=== PATIENT | male | born 1955 | race Caucasian/White ===

== ENCOUNTER → 2018-06-10 09:56 | Outpatient (CLI) | payer OTHER, SELFPAY ==
--- NOTE | 2018-06-10 | DI.US.S_ITS ---
PROCEDURE: US SCROTUM INDICATIONS: EPIDIMAL CYST/MASS TECHNIQUE: Real-time scanning was performed of the scrotum and testicles, with image documentation. Color and pulse Doppler interrogation was performed of both testicles. COMPARISON: [facility], CT, ABDOMEN/PELVIS WITH CONTRAST, 03/08/2014, 13:40. [facility], US, TESTICLE IMAGING, 12/12/2017, 14:24. [facility], US, TESTICLE IMAGING, 01/29/2018, 9:35. FINDINGS: Right: Testicle is normal in size at 2.3 x 3.1 x 5.0 cm, and homogenous in echotexture. Epididymis is normal in overall size and morphology except for a diminished size of a epididymal tail mass like structure that previously had measured 1.3 x 1.1 x 4.5 cm 01/29/18 and now measures only 0.9 x 0.9 x 0.8 cm. There is increased calcification associated with this interval change. No hydrocele or varicoceles. Overlying scrotal skin is normal in thickness. Left: Testicle is normal in size at 2.3 x 3.4 x 4.6 cm, and homogeneous in echotexture. Epididymis is normal in overall size and morphology. No hydrocele or varicoceles. Overlying scrotal skin is normal in thickness. Doppler: Color and pulse Doppler demonstrate normal and symmetric arterial flow in both testicles. IMPRESSION: No testicular lesion is seen. An epididymal tail mass on the right has diminished in size, and mildly increased in calcification. The maximal dimension of the tear currently is 9 mm. This interval change may reflects involuting hematoma but the exact etiology is not yet established. Dictated by: Brendan Madera M.D. on 06/10/2018 at 12:15 Approved by: Brendan Madera M.D. on 06/10/2018 at 12:22
== END ==
PROVIDERS: Family Provider Physician Assistant; PCP Physician Assistant; Visit Provider Physician Assistant
DX: N50.3 Cyst of epididymis (principal)
CPT/HCPCS: 76870

== ENCOUNTER → 2018-11-05 07:03 | Outpatient (CLI) | payer OTHER, SELFPAY ==
[2018-11-05 07:59] LABS: Hematocrit 42.5 % (41-53); Hemoglobin 14.5 g/dL (13.5-17.5); Mean Corpuscular Hemoglobin 29.8 PG (26-34); Mean Corpuscular Volume 87.6 fL (80-100); Platelet Count 231 X10^3/uL (150-400); Red Blood Cell Count 4.85 X10^6/uL (4.5-5.9); Red Cell Distribution Width 13.2 % (11.6-14.8); White Blood Cell Count 5.5 X10^3/uL (4.5-11.0)
[2018-11-05 08:06] LABS: Alanine Aminotransferase 56 IU/L (21-72); Albumin 4.3 g/dL (3.5-5.0); Albumin Globulin Ratio 1.7 (1.0-2.8); Alkaline Phosphatase 31 U/L (38-126); Aspartate Aminotransferase 46 IU/L (17-59); BUN Creatinine Ratio 20.8 (6-22); Bilirubin Total 0.4 mg/dL (0.2-1.3); Blood Urea Nitrogen 27 mg/dL (9-20); Calcium 9.1 mg/dL (8.4-10.2); Carbon Dioxide 28 mmol/L (22-32); Chloride 103 mmol/L (98-107); Cholesterol 168 mg/dL (140-199); Estimated Glomerular Filt Rate 56.1 mL/min (>60); Globulin 2.6 g/dL (1.7-4.1); Glucose 124 mg/dL (80-110); HDL Cholesterol 39 mg/dL (40-60); HEMOLYSIS < 15 (0-50); LDL Cholesterol Calculated 101 mg/dL (<100); Potassium 4.6 mmol/L (3.4-5.1); Sodium 141 mmol/L (137-145); Total Protein 6.9 g/dL (6.3-8.2); Triglycerides 140 mg/dL (35-150)
== END ==
PROVIDERS: PCP Physician Assistant; Visit Provider Physician Assistant
DX: E78.2 Mixed hyperlipidemia (principal); K21.9 Gastro-esophageal reflux disease without esophagitis; R73.01 Impaired fasting glucose
CPT/HCPCS: 36415; 80053; 80061; 85027

== ENCOUNTER → 2019-05-28 07:01 | Outpatient (CLI) | payer OTHER, SELFPAY ==
[2019-05-28 08:14] LABS: BUN Creatinine Ratio 15.4 (6-22); Blood Urea Nitrogen 20 mg/dL (9-20); Calcium 9.4 mg/dL (8.4-10.2); Carbon Dioxide 28 mmol/L (22-32); Chloride 104 mmol/L (98-107); Estimated Glomerular Filt Rate 56.1 mL/min (>60); Glucose 115 mg/dL (80-110); HEMOLYSIS < 15 (0-50); Potassium 4.4 mmol/L (3.4-5.1); Sodium 142 mmol/L (137-145)
[2019-05-28 08:29] LABS: Hemoglobin A1C% w Est Avg Glu 5.8 % (4.0-6.0)
== END ==
PROVIDERS: PCP Physician Assistant; Visit Provider Physician Assistant
DX: M25.50 Pain in unspecified joint (principal); R73.01 Impaired fasting glucose; R79.9 Abnormal finding of blood chemistry, unspecified
CPT/HCPCS: 36415; 80048; 83036; 84550

== ENCOUNTER → 2019-06-02 08:35 | Outpatient (CLI) | payer OTHER, SELFPAY ==
[2019-06-02 12:41] LABS: Creatinine Urine Random 114.1 mg/dL
[2019-06-02 12:50] LABS: Microalbumi Creatinin Ratio Ur 5.2 ug/mg CR (<30); Microalbumin Urine Random < 0.6 mg/dL (0-1.6)
== END ==
PROVIDERS: PCP Physician Assistant; Visit Provider Physician Assistant
DX: N28.9 Disorder of kidney and ureter, unspecified (principal)
CPT/HCPCS: 82043; 82570

== ENCOUNTER 2019-06-17 12:42 | Day surgery (SDC) | payer OTHER, SELFPAY ==
--- NOTE | 2019-06-17 | PATH_ITS ---
[facility] Accession Number: [id number] . 01 Material submitted: . body - POLYP 90 CM . 02 Diagnosis: Colon, Polyp at 90 cm, Biopsy: Colonic mucosa with no diagnostic abnormality, consistent with polypoid redundancy. Additional levels were examined. Negative for dysplasia and malignancy. [facility]/06/21/2019 . 02 Electronically signed: . Natalie Webber MD, Pathologist NPI- [id number] . 01 Gross description: . POLYP 90 CM: Received in formalin is 1 fragment(s) of cmgraw, soft tissue measuring 0.3 x 0.2 x 0.1 cm which is entirely submitted and submitted entirely in 1 cassette(s) /DMC /DMC . 02 Pathologist provided ICD-10: K63.5 . 02 CPT . 799214 Performed at: 01 [facility] [address] [id number] MD Lauro Goodman MD Phone: [phone] Performed at: 02 [facility] [address] [place], [place] [id number] MD Natalie Webber MD Phone: [phone]
[2019-06-17 13:14] VITALS: BP 143/88; PULSE 80; RESP 12; TEMP 36.8; O2SAT 97; BMI 28.5
[2019-06-17] MEDS: SODIUM CHLORIDE 0.9% 1,000 ML 200 ML IV (13:29)
--- NOTE | 2019-06-17 13:45 | PM.HP.1 ---
History of Present Illness Date Patient Seen: 06/17/19 Time Patient Seen: 13:46 Chief complaint: [id number] Narrative: Patient presents for colorectal screening. They had a previous colonoscopy 5 years ago that demonstated a benign polyp. On further history denies any recent gastrointestinal symptoms. No nausea, vomiting, abdominal pain, loss of appetite, unexplained weight loss, change in bowel habits, diarrhea, constipation, melena, hematochezia, or bright red blood per rectum. Patient History Surgical History History of hip replacement (11/29/13) Status post appendectomy Status post hernia repair Social History household members: spouse Smoking Status: Former smoker (I quit 20 years ago) Tobacco: How many years used: 20 second hand exposure: Yes (my ) alcohol intake: current (2 to 3 beers a week) substance use type: does not use Family & Social History Social History: household members spouse Tobacco & Substance use: Smoking Status Former smoker alcohol intake current Meds Home Medications Medication Instructions Recorded Confirmed Type multivitamin [Multiple Vitamins] 1 tab PO QDAY #0 08/06/17 06/17/19 History chlorzoxazone 500 mg tablet 500 mg PO BIDP PRN #60 tab 07/23/18 06/17/19 Rx meloxicam 15 mg tablet 15 mg PO DAILY PRN 11/11/18 06/17/19 History omega-3 fatty acids 1,000 mg 1,000 mg PO DAILY 11/11/18 06/17/19 History capsule fenofibrate 160 mg tablet 160 mg PO QDAY #90 tab 01/06/19 06/17/19 Rx lovastatin 20 mg tablet 20 mg PO HS #90 tab 01/06/19 06/17/19 Rx naproxen sodium 220 mg tablet 440 mg PO ONCE PRN tab 06/02/19 06/17/19 History Allergies Allergy/AdvReac Type Severity Reaction Status Date / Time atorvastatin [ATORVASTATIN] Allergy Severe Hemorrhage Verified 06/17/19 13:27 several inches in diameter/may have been crestor Review of Systems Review of Systems All systems reviewed & are unremarkable except as noted in HPI and below Exam Vital Signs (past 8 hours): - 06/17/19 13:14 Temperature 98.2 F Pulse Rate 80 Respiratory Rate 12 Blood Pressure 143/88 H Pulse Oximetry 97 Oxygen Delivery Method Room Air Narrative Exam Narrative: General-adult male no acute distress, well nourished HEENT-moist mucous membranes, no scleral icterus Neck-supple with full range of motion, no lymphadenopathy Chest- no labored respirations, clear to auscultation bilaterally Cardiac-regular rate and rhythm Abdomen-soft, nontender, non distended Extremities-no edema, warm well perfused Neurological-alert and oriented x 3. No focal deficits Skin-normal temperature and turgor, no rashes or ulcers Assessment & Plan (1) Screening for colorectal cancer: Current visit: Yes Status: Acute Assessment & Plan narrative: Patient is requiring colorectal screening. Colonoscopy is recommended. Technical details were discussed. Risks, benefits, alternatives explained. Risks including but not limited to sedation, aspiration, bleeding, pain, missed lesion, incomplete examination, need for further radiographic studies, colonic perforation, need for major abdominal surgery, and all attendant risks major surgery were discussed at length. All questions were answered to their satisfaction, and they voiced understanding.
[2019-06-17] MEDS: fentaNYL 250 MCG/5 ML INJ IV (14:14)
[2019-06-17] MEDS: MIDAZOLAM 5 MG/5 ML VIAL IV (14:14)
[2019-06-17 14:25] VITALS: BP 111/73; PULSE 75; RESP 13; TEMP 36.6; O2SAT 95
--- NOTE | 2019-06-17 14:31 | PM.OP.ENDO ---
Operative Date/Time/Diagnoses Date of procedure: 06/17/19 Time of procedure: 14:31 Pre-op diagnosis: Screening colonoscopy Post-op diagnosis: same Procedure & Clinicians Study performed: colonoscopy Same procedure as scheduled: Yes Indications: 63-year-old male with a previous colonoscopy 5 years ago identified an adenoma presents for routine screening Surgeon: Josh Yancey Procedure Notes SCOAP/Timeout: performed Procedure in detail: Digital rectal exam was performed and demonstrated normal prostate no masses. Scope was carefully inserted into the rectum and advanced to the colon. The ileocecal valve was reached. There was a polyp identified at 90 cm consistent with the cecum/right colon that was less than 1 cm in size and benign appearance. Was biopsied. The site was found to be hemostatic. The scope was carefully withdrawn from colon. The remainder of the colon was notable for diverticulosis only. Scope withdrawal time: 7 Sedation minutes: 27 Findings: polyp Specimen(s): other (cecal polyp) Complications: none Impression: polyp Recommendations: Colonscopy in 10 years Disposition: same day surgery
[2019-06-17 14:50] VITALS: BP 109/73; PULSE 79; RESP 14; TEMP 36.7; O2SAT 97
== END 2019-06-17 14:57 | disposition home or self-care (01) ==
PROVIDERS: PCP Physician Assistant; Visit Provider Surgery
PROC: 0DJD8ZZ Inspection of Lower Intestinal Tract, Via Natural or Artificial Opening Endoscopic (ICD-10-PCS; CPT 45378; principal; 2019-06-17 14:00)
DX: Z86.010 Personal history of colon polyps (principal); K63.5 Polyp of colon; K57.30 Diverticulosis of large intestine without perforation or abscess without bleeding; Z87.891 Personal history of nicotine dependence
CPT/HCPCS: 45380; 99152; J2250; J3010

== ENCOUNTER → 2019-11-19 07:50 | Outpatient (CLI) | payer OTHER, SELFPAY ==
[2019-11-19 08:14] LABS: Add Manual Diff / Slide Review NO; Basophils Absolute Auto 100 /uL (0-100); Eosinophils Absolute Auto 200 /uL (0-450); Eosinophils Percent Auto 3.9 % (2-4); Hematocrit 43.8 % (41-53); Hemoglobin 14.9 g/dL (13.5-17.5); Lymphocytes Absolute Auto 2000 /uL (1100-4500); Lymphocytes Percent Auto 32.8 % (25-40); Mean Corpuscular HGB Conc 34.1 % (30-36); Mean Corpuscular Hemoglobin 29.7 PG (26-34); Mean Corpuscular Volume 87.3 fL (80-100); Monocytes Absolute Auto 500 /uL (0-900); Monocytes Percent Auto 7.5 % (3-14); Neutrophils Absolute Auto 3300 /uL (1500-7000); Neutrophils Percent Auto 54.8 % (50-75); Platelet Count 246 X10^3/uL (150-400); Red Blood Cell Count 5.02 X10^6/uL (4.5-5.9); Red Cell Distribution Width 13.4 % (11.6-14.8); White Blood Cell Count 6.1 X10^3/uL (4.5-11.0)
[2019-11-19 08:38] LABS: Alanine Aminotransferase 85 IU/L (<50); Albumin 4.5 g/dL (3.5-5.0); Albumin Globulin Ratio 1.6 (1.0-2.8); Alkaline Phosphatase 39 U/L (38-126); Aspartate Aminotransferase 55 IU/L (17-59); BUN Creatinine Ratio 17.3 (6-22); Bilirubin Total 0.5 mg/dL (0.2-1.3); Blood Urea Nitrogen 26 mg/dL (9-20); Calcium 9.6 mg/dL (8.4-10.2); Carbon Dioxide 30 mmol/L (22-32); Chloride 102 mmol/L (98-107); Cholesterol 208 mg/dL (140-199); Creatinine Urine Random 146.1 mg/dL; Estimated Glomerular Filt Rate 47.4 mL/min (>60); Globulin 2.9 g/dL (1.7-4.1); Glucose 138 mg/dL (80-110); HDL Cholesterol 28 mg/dL (40-60); HEMOLYSIS < 15 (0-50); LDL Cholesterol Calculated 127 mg/dL (<100); Potassium 4.5 mmol/L (3.4-5.1); Sodium 141 mmol/L (137-145); Total Protein 7.4 g/dL (6.3-8.2); Triglycerides 264 mg/dL (35-150)
[2019-11-19 08:39] LABS: Microalbumi Creatinin Ratio Ur 4.1 ug/mg CR (<30); Microalbumin Urine Random < 0.6 mg/dL (0-1.6)
[2019-11-19 09:03] LABS: Prostate Specific Antigen Scrn 2.18 ng/mL (0.1-4.0)
== END ==
PROVIDERS: PCP Physician Assistant; Visit Provider Physician Assistant
DX: E78.2 Mixed hyperlipidemia (principal); N28.9 Disorder of kidney and ureter, unspecified; Z12.5 Encounter for screening for malignant neoplasm of prostate
CPT/HCPCS: 36415; 80053; 80061; 82043; 82570; 85025; G0103

== ENCOUNTER → 2019-12-03 07:55 | Outpatient (CLI) | payer OTHER, SELFPAY ==
[2019-12-03 09:47] LABS: Hemoglobin A1C% w Est Avg Glu 6.3 % (4.0-6.0)
== END ==
PROVIDERS: PCP Physician Assistant; Referring Provider Physician Assistant; Visit Provider Physician Assistant
DX: E78.2 Mixed hyperlipidemia (principal); R73.01 Impaired fasting glucose
CPT/HCPCS: 36415; 83036

== ENCOUNTER → 2019-12-23 08:11 | Outpatient (CLI) | payer OTHER, SELFPAY ==
[2019-12-23 08:51] LABS: Hematocrit 43.8 % (41-53); Hemoglobin 14.9 g/dL (13.5-17.5); Mean Corpuscular Hemoglobin 30.1 PG (26-34); Mean Corpuscular Volume 88.5 fL (80-100); Platelet Count 247 X10^3/uL (150-400); Red Blood Cell Count 4.95 X10^6/uL (4.5-5.9); Red Cell Distribution Width 13.2 % (11.6-14.8)
[2019-12-23 09:29] LABS: BUN Creatinine Ratio 16.2 (6-22); Blood Urea Nitrogen 21 mg/dL (9-20); Calcium 9.2 mg/dL (8.4-10.2); Carbon Dioxide 27 mmol/L (22-32); Chloride 103 mmol/L (98-107); Estimated Glomerular Filt Rate 55.9 mL/min (>60); Glucose 138 mg/dL (80-110); HEMOLYSIS < 15 (0-50); Potassium 4.4 mmol/L (3.4-5.1); Sodium 141 mmol/L (137-145)
[2019-12-23 11:22] LABS: Creatinine Urine Random 101.7 mg/dL; Protein (Total) Urine Random 8 mg/dL (0-12); Protein Creatinine Ratio Urine 0.07 GRAM/24H
== END ==
PROVIDERS: PCP Internal Medicine; Referring Provider Student in an Organized Health Care Education/Training Program; Visit Provider Student in an Organized Health Care Education/Training Program
DX: D70.9 Neutropenia, unspecified (principal); D63.1 Anemia in chronic kidney disease; R80.9 Proteinuria, unspecified
CPT/HCPCS: 36415; 80048; 82570; 84156; 85027

== ENCOUNTER → 2020-01-12 09:34 | Outpatient (CLI) | payer OTHER, SELFPAY ==
--- NOTE | 2020-01-12 | DI.US.S_ITS ---
PROCEDURE: US RENAL COMPLETE INDICATIONS: CHRONIC KIDNEY DISEASE TECHNIQUE: Real-time scanning was performed of the kidneys and bladder, with image documentation. COMPARISON: None. FINDINGS: Kidneys: Kidneys are normal in size. Right kidney measures 12.5 cm long; left kidney measures of 12.8 cm long. Right renal cortical thickness is 1.7 cm; left renal cortical thickness is 1.6 cm. Renal cortical echotexture is normal. No hydronephrosis or nephrolithiasis. No suspicious solid mass lesions. Prostate gland is prominent measuring 5.0 x 4.6 cm. Bladder: Pre-void bladder volume is 348 mL. Post-void residual is 52 mL. Pre-void images demonstrate no intraluminal masses or stones. On pre-void images, bilateral ureteral jets are noted with color Doppler interrogation. (Of note, ureteral jets may not be detectable in up to 25% of cases due to insufficient differences in specific gravity between ureteral and bladder urine). Miscellaneous: No free pelvic fluid. IMPRESSION: 1. No obstruction. Kidneys are within normal limits. Dictated by: Susan Wright M.D. on 01/12/2020 at 13:40 Approved by: Susan Wright M.D. on 01/12/2020 at 13:45
== END ==
PROVIDERS: PCP Internal Medicine; Referring Provider Internal Medicine; Visit Provider Student in an Organized Health Care Education/Training Program
DX: N18.9 Chronic kidney disease, unspecified (principal)
CPT/HCPCS: 76770

== ENCOUNTER → 2020-03-30 07:05 | Outpatient (CLI) | payer OTHER, SELFPAY ==
[2020-03-30 08:27] LABS: Hemoglobin A1C% w Est Avg Glu 6.7 % (4.0-6.0)
[2020-03-30 08:28] LABS: BUN Creatinine Ratio 17.4 (6-22); Blood Urea Nitrogen 26 mg/dL (9-20); Calcium 9.8 mg/dL (8.4-10.2); Carbon Dioxide 29 mmol/L (22-32); Chloride 103 mmol/L (98-107); Estimated Glomerular Filt Rate 47.8 mL/min (>60); Glucose 139 mg/dL (80-110); HEMOLYSIS < 15 (0-50); Potassium 5.1 mmol/L (3.4-5.1); Sodium 140 mmol/L (137-145)
== END ==
PROVIDERS: PCP Internal Medicine; Referring Provider Internal Medicine; Visit Provider Internal Medicine
DX: E11.65 Type 2 diabetes mellitus with hyperglycemia (principal); N18.3 Chronic kidney disease, stage 3 (moderate)
CPT/HCPCS: 36415; 80048; 83036

== ENCOUNTER → 2020-08-15 16:23 | Outpatient (CLI) | payer OTHER, SELFPAY ==
[2020-08-15 16:32] LABS: Bacteria Urine None Seen
[2020-08-15 16:57] LABS: Hematocrit 43.4 % (41-53); Hemoglobin 14.6 g/dL (13.5-17.5)
[2020-08-15 17:25] LABS: BUN Creatinine Ratio 15.8 (6-22); Blood Urea Nitrogen 24 mg/dL (9-20); Calcium 9.6 mg/dL (8.4-10.2); Carbon Dioxide 31 mmol/L (22-32); Chloride 104 mmol/L (98-107); Estimated Glomerular Filt Rate 46.7 mL/min (>60); Glucose 123 mg/dL (80-110); HEMOLYSIS < 15 (0-50); Potassium 4.1 mmol/L (3.4-5.1); Sodium 140 mmol/L (137-145)
[2020-08-15 18:17] LABS: Appearance Urine UA CLEAR; Bilirubin Urine UA NEGATIVE (NEGATIVE); Color Urine UA YELLOW; Glucose Urine UA NEGATIVE (Negative); Ketones Urine UA TRACE (NEGATIVE); Leukocyte Esterase Urine UA NEGATIVE (NEGATIVE); Nitrite Urine UA NEGATIVE (Negative); Occult Blood Urine UA NEGATIVE (Negative); Protein Urine UA NEGATIVE (Negative); Urobilinogen Urine UA 0.2 E.U./dL (0.2); pH Urine UA 6.5 (4.5-8.0)
[2020-08-15 18:27] LABS: Culture Indicated Urine Cult Not Indicated; RBC Urine 0-1/HPF (0-5/HPF); WBC Urine 0-1/HPF (0-5/HPF)
[2020-08-15 18:47] LABS: Creatinine Urine Random 198.9 mg/dL; Protein (Total) Urine Random 5 mg/dL (0-12); Protein Creatinine Ratio Urine 0.02 GRAM/24H
[2020-08-16 08:03] LABS: Parathyroid Hormone Int 30 pg/mL (15-65)
== END ==
PROVIDERS: PCP Internal Medicine; Referring Provider Student in an Organized Health Care Education/Training Program; Visit Provider Student in an Organized Health Care Education/Training Program
DX: N05.9 Unspecified nephritic syndrome with unspecified morphologic changes (principal); D64.9 Anemia, unspecified; N25.81 Secondary hyperparathyroidism of renal origin; N30.00 Acute cystitis without hematuria; R80.9 Proteinuria, unspecified
CPT/HCPCS: 36415; 80048; 81001; 82570; 83970; 84156; 85014; 85018

== ENCOUNTER → 2021-01-26 12:20 | Outpatient (CLI) | payer OTHER, SELFPAY ==
[2021-01-26] MEDS: COVID-19 VACC #1, MRNA(MOD) 100 MCG/0.5 ML VIAL IM (12:25)
== END ==
PROVIDERS: PCP Internal Medicine; Visit Provider Internal Medicine
DX: Z23 Encounter for immunization (principal)
CPT/HCPCS: 0011A; 91301

== ENCOUNTER → 2021-02-23 15:56 | Outpatient (CLI) | payer OTHER, SELFPAY ==
[2021-02-23] MEDS: COVID-19 VACC #2, MRNA(MOD) 100 MCG/0.5 ML VIAL IM (16:08)
== END ==
PROVIDERS: PCP Internal Medicine; Visit Provider Internal Medicine
DX: Z23 Encounter for immunization (principal)
CPT/HCPCS: 0012A; 91301

== ENCOUNTER → 2021-04-28 08:58 | Outpatient (CLI) | payer OTHER, SELFPAY ==
[2021-04-28 10:00] LABS: Hematocrit 43.1 % (41-53); Hemoglobin 14.3 g/dL (13.5-17.5)
[2021-04-28 10:22] LABS: Alanine Aminotransferase 82 IU/L (<50); Albumin 4.3 g/dL (3.5-5.0); Albumin Globulin Ratio 1.5 (1.0-2.8); Alkaline Phosphatase 36 U/L (38-126); Aspartate Aminotransferase 61 IU/L (17-59); Bilirubin Total 0.5 mg/dL (0.2-1.3); Blood Urea Nitrogen 19 mg/dL (9-20); Calcium 9.3 mg/dL (8.4-10.2); Carbon Dioxide 29 mmol/L (22-32); Chloride 104 mmol/L (98-107); Cholesterol 204 mg/dL (140-199); Estimated Glomerular Filt Rate > 60.0 mL/min (>60); Globulin 2.8 g/dL (1.7-4.1); Glucose 148 mg/dL (80-110); HDL Cholesterol 30 mg/dL (40-60); HEMOLYSIS < 15 (0-50); LDL Cholesterol Calculated 124 mg/dL (<100); Potassium 4.4 mmol/L (3.4-5.1); Sodium 138 mmol/L (137-145); Total Protein 7.1 g/dL (6.3-8.2); Triglycerides 252 mg/dL (35-150)
[2021-04-28 10:26] LABS: Hemoglobin A1C% w Est Avg Glu 6.8 % (4.0-6.0)
[2021-04-28 10:53] LABS: Creatinine Urine Random 91.2 mg/dL; Protein (Total) Urine Random 7 mg/dL (0-12); Protein Creatinine Ratio Urine 0.07 GRAM/24H
[2021-04-29 10:16] LABS: Parathyroid Hormone Int 35 pg/mL (15-65)
== END ==
PROVIDERS: PCP Internal Medicine; Referring Provider Student in an Organized Health Care Education/Training Program; Visit Provider Student in an Organized Health Care Education/Training Program
DX: E11.9 Type 2 diabetes mellitus without complications (principal); E78.2 Mixed hyperlipidemia; N18.30 Chronic kidney disease, stage 3 unspecified
CPT/HCPCS: 36415; 80053; 80061; 82570; 83036; 83970; 84156; 85014; 85018

== ENCOUNTER → 2021-10-17 07:37 | Outpatient (CLI) | payer OTHER, SELFPAY ==
[2021-10-17 08:44] LABS: COVID19 -Nasal RAPID Negative (Negative)
== END ==
PROVIDERS: PCP Internal Medicine; Visit Provider Nurse Practitioner Family
DX: Z20.822 Contact with and (suspected) exposure to COVID-19 (principal); J02.9 Acute pharyngitis, unspecified
CPT/HCPCS: 87070; 87635

== ENCOUNTER → 2022-01-09 07:21 | Outpatient (CLI) | payer OTHER, SELFPAY ==
[2022-01-09 08:09] LABS: Hemoglobin A1C% w Est Avg Glu 7.9 % (4.0-6.0)
[2022-01-09 08:15] LABS: Alanine Aminotransferase 96 IU/L (<50); Albumin 4.4 g/dL (3.5-5.0); Albumin Globulin Ratio 1.6 (1.0-2.8); Alkaline Phosphatase 47 U/L (38-126); Aspartate Aminotransferase 73 IU/L (17-59); BUN Creatinine Ratio 17.1 (6-22); Bilirubin Total 0.5 mg/dL (0.2-1.3); Blood Urea Nitrogen 21 mg/dL (9-20); Calcium 9.1 mg/dL (8.4-10.2); Carbon Dioxide 29 mmol/L (22-32); Chloride 101 mmol/L (98-107); Cholesterol 226 mg/dL (140-199); Estimated Glomerular Filt Rate 59.2 mL/min (>60); Globulin 2.7 g/dL (1.7-4.1); Glucose 183 mg/dL (80-110); HDL Cholesterol 27 mg/dL (40-60); HEMOLYSIS < 15 (0-50); Potassium 4.5 mmol/L (3.4-5.1); Sodium 138 mmol/L (137-145); Total Protein 7.1 g/dL (6.3-8.2); Triglycerides 443 mg/dL (35-150)
[2022-01-09 08:25] LABS: LDL Cholesterol Direct 127 mg/dL (<100)
== END ==
PROVIDERS: PCP Internal Medicine; Referring Provider Internal Medicine; Visit Provider Internal Medicine
DX: E11.9 Type 2 diabetes mellitus without complications (principal); E78.2 Mixed hyperlipidemia; N18.30 Chronic kidney disease, stage 3 unspecified
CPT/HCPCS: 36415; 80053; 80061; 83036; 83721

== ENCOUNTER → 2022-04-18 08:08 | Outpatient (CLI) | payer OTHER, SELFPAY ==
[2022-04-18 09:36] LABS: Alanine Aminotransferase 95 IU/L (<50); Albumin 4.5 g/dL (3.5-5.0); Albumin Globulin Ratio 1.7 (1.0-2.8); Alkaline Phosphatase 45 U/L (38-126); Aspartate Aminotransferase 81 IU/L (17-59); BUN Creatinine Ratio 14.6 (6-22); Bilirubin Total 0.6 mg/dL (0.2-1.3); Bilirubin Unconjugated 0.4 mg/dL (0.0-1.1); Blood Urea Nitrogen 18 mg/dL (9-20); Carbon Dioxide 28 mmol/L (22-32); Chloride 100 mmol/L (98-107); Creatine Kinase 165 U/L (55-170); Estimated Glomerular Filt Rate > 60 mL/min (>60); Globulin 2.7 g/dL (1.7-4.1); Glucose 181 mg/dL (80-110); HEMOLYSIS < 15 (0-50); Potassium 4.6 mmol/L (3.4-5.1); Sodium 139 mmol/L (137-145); Total Protein 7.2 g/dL (6.3-8.2)
[2022-04-18 09:38] LABS: HEMOLYSIS < 15 (0-50); Iron 85 ug/dL (49-181)
[2022-04-18 09:51] LABS: Percent Iron Saturation 20 % (20-50); Total Iron Binding Capacity 422 ug/dL (261-462); Transferrin 326 mg/dL (206-381)
[2022-04-18 19:25] LABS: Hep C Virus Ab w/Reflex Quant NEGATIVE s/c (NEGATIVE); Hepatitis B Surface Antigen NEGATIVE s/c (NEGATIVE)
[2022-04-18 21:58] LABS: Ceruloplasmin 21.6 mg/dL (16.0-31.0)
[2022-04-19 19:07] LABS: Deamidated Gliadin IgA 3 units (0-19); Deamidated Gliadin IgG 1 units (0-19); IGA 104 mg/dL (61-437); t-Transglutaminase IgA <2 U/mL (0-3)
[2022-04-20 00:07] LABS: Hepatitis B Surf Ab Qualitativ Reactive (.)
[2022-04-20 12:34] LABS: Smooth Muscle Antibody 5 Units (0-19)
[2022-04-22 17:15] LABS: ANA Screen, IFA Negative (.)
== END ==
PROVIDERS: PCP Internal Medicine; Referring Provider Internal Medicine; Visit Provider Internal Medicine
DX: R94.5 Abnormal results of liver function studies (principal); N18.30 Chronic kidney disease, stage 3 unspecified; E11.9 Type 2 diabetes mellitus without complications
CPT/HCPCS: 36415; 80048; 80076; 82390; 82550; 82784; 83036; 83516; 83540; 83550; 86038; 86255; 86706; 86803; 87340

== ENCOUNTER → 2022-07-09 08:55 | Outpatient (CLI) | payer OTHER, SELFPAY ==
[2022-07-09 10:26] LABS: BUN Creatinine Ratio 15.8 (6-22); Blood Urea Nitrogen 21 mg/dL (9-20); Calcium 9.2 mg/dL (8.4-10.2); Carbon Dioxide 30 mmol/L (22-32); Chloride 100 mmol/L (98-107); Estimated Glomerular Filt Rate 60 mL/min (>60); Glucose 136 mg/dL (80-110); HEMOLYSIS < 15 (0-50); Potassium 4.5 mmol/L (3.4-5.1); Sodium 140 mmol/L (137-145)
[2022-07-09 11:25] LABS: Hemoglobin A1C% w Est Avg Glu 7.2 % (4.0-6.0)
== END ==
PROVIDERS: PCP Internal Medicine; Referring Provider Internal Medicine; Visit Provider Internal Medicine
DX: E11.65 Type 2 diabetes mellitus with hyperglycemia (principal)
CPT/HCPCS: 36415; 80048; 83036

== ENCOUNTER → 2022-10-07 08:57 | Outpatient (CLI) | payer MEDICARE, OTHER, SELFPAY ==
[2022-10-07 09:55] LABS: Hemoglobin A1C% w Est Avg Glu 7.8 % (4.0-6.0)
[2022-10-07 10:03] LABS: Alanine Aminotransferase 88 IU/L (<50); Albumin 4.4 g/dL (3.5-5.0); Albumin Globulin Ratio 1.6 (1.0-2.8); Alkaline Phosphatase 48 U/L (38-126); Aspartate Aminotransferase 58 IU/L (17-59); BUN Creatinine Ratio 16.1 (6-22); Bilirubin Total 0.5 mg/dL (0.2-1.3); Blood Urea Nitrogen 20 mg/dL (9-20); Calcium 9.4 mg/dL (8.4-10.2); Carbon Dioxide 30 mmol/L (22-32); Chloride 96 mmol/L (98-107); Cholesterol 218 mg/dL (140-199); Estimated Glomerular Filt Rate > 60 mL/min (>60); Globulin 2.7 g/dL (1.7-4.1); Glucose 169 mg/dL (80-110); HDL Cholesterol 28 mg/dL (40-60); HEMOLYSIS < 15 (0-50); LDL Cholesterol Calculated 114 mg/dL (<100); Potassium 4.6 mmol/L (3.4-5.1); Sodium 135 mmol/L (137-145); Total Protein 7.1 g/dL (6.3-8.2); Triglycerides 379 mg/dL (35-150)
[2022-10-07 10:12] LABS: Creatinine Urine Random 49.9 mg/dL
[2022-10-07 10:19] LABS: Microalbumin Urine Random < 0.6 mg/dL (0-1.6)
== END ==
PROVIDERS: PCP Internal Medicine; Referring Provider Internal Medicine; Visit Provider Internal Medicine
DX: E11.65 Type 2 diabetes mellitus with hyperglycemia (principal); E78.2 Mixed hyperlipidemia; N18.31 Chronic kidney disease, stage 3a
CPT/HCPCS: 36415; 80053; 80061; 82043; 82570; 83036

== ENCOUNTER → 2023-01-06 09:28 | Outpatient (CLI) | payer MEDICARE, OTHER, SELFPAY ==
[2023-01-06 10:25] LABS: Hemoglobin A1C% w Est Avg Glu 7.7 % (4.0-6.0)
[2023-01-06 11:15] LABS: BUN Creatinine Ratio 14.5 (6-22); Blood Urea Nitrogen 19 mg/dL (9-20); Calcium 9.2 mg/dL (8.4-10.2); Carbon Dioxide 30 mmol/L (22-32); Chloride 100 mmol/L (98-107); Estimated Glomerular Filt Rate > 60 mL/min (>60); Glucose 161 mg/dL (80-110); HEMOLYSIS < 15 (0-50); Potassium 4.7 mmol/L (3.4-5.1); Sodium 136 mmol/L (137-145)
== END ==
PROVIDERS: PCP Internal Medicine; Referring Provider Internal Medicine; Visit Provider Internal Medicine
DX: E11.65 Type 2 diabetes mellitus with hyperglycemia (principal)
CPT/HCPCS: 36415; 80048; 83036

== ENCOUNTER → 2023-04-11 07:24 | Outpatient (CLI) | payer MEDICARE, OTHER, SELFPAY ==
[2023-04-11 09:35] LABS: BUN Creatinine Ratio 13.2 (6-22); Blood Urea Nitrogen 18 mg/dL (9-20); Calcium 9.3 mg/dL (8.4-10.2); Carbon Dioxide 28 mmol/L (22-32); Chloride 98 mmol/L (98-107); Estimated Glomerular Filt Rate 58 mL/min (>60); Glucose 209 mg/dL (80-110); HEMOLYSIS < 15 (0-50); Potassium 4.6 mmol/L (3.4-5.1); Sodium 137 mmol/L (137-145)
[2023-04-12 03:50] LABS: Labcorp Hemoglobin (Hb) A1c 7.7 % (4.8-5.6)
== END ==
PROVIDERS: PCP Internal Medicine; Referring Provider Internal Medicine; Visit Provider Internal Medicine
DX: N18.30 Chronic kidney disease, stage 3 unspecified (principal); E11.9 Type 2 diabetes mellitus without complications
CPT/HCPCS: 36415; 80048; 83036

== ENCOUNTER → 2023-07-23 08:17 | Outpatient (CLI) | payer MEDICARE, OTHER, SELFPAY ==
[2023-07-23 09:10] LABS: Alanine Aminotransferase 96 IU/L (<50); Albumin 4.5 g/dL (3.5-5.0); Albumin Globulin Ratio 1.6 (1.0-2.8); Alkaline Phosphatase 40 U/L (38-126); Aspartate Aminotransferase 85 IU/L (17-59); BUN Creatinine Ratio 10.8 (6-22); Bilirubin Total 0.5 mg/dL (0.2-1.3); Blood Urea Nitrogen 13 mg/dL (9-20); Calcium 9.3 mg/dL (8.4-10.2); Carbon Dioxide 28 mmol/L (22-32); Chloride 100 mmol/L (98-107); Cholesterol 200 mg/dL (140-199); Estimated Glomerular Filt Rate > 60 mL/min (>60); Globulin 2.8 g/dL (1.7-4.1); Glucose 156 mg/dL (80-110); HDL Cholesterol 29 mg/dL (40-60); HEMOLYSIS < 15 (0-50); LDL Cholesterol Calculated 112 mg/dL (<100); Potassium 4.4 mmol/L (3.4-5.1); Sodium 137 mmol/L (137-145); Total Protein 7.3 g/dL (6.3-8.2); Triglycerides 295 mg/dL (35-150)
[2023-07-23 10:06] LABS: Hemoglobin A1C% w Est Avg Glu 6.9 % (4.0-6.0)
== END ==
PROVIDERS: PCP Internal Medicine; Referring Provider Internal Medicine; Visit Provider Internal Medicine
DX: E11.9 Type 2 diabetes mellitus without complications (principal); E78.2 Mixed hyperlipidemia; N18.30 Chronic kidney disease, stage 3 unspecified
CPT/HCPCS: 36415; 80053; 80061; 83036

== ENCOUNTER → 2023-10-08 13:21 | Outpatient (CLI) | payer MEDICARE, OTHER, SELFPAY ==
[2023-10-08 14:15] LABS: Hemoglobin A1C% w Est Avg Glu 7.5 % (4.0-6.0)
[2023-10-08 14:22] LABS: BUN Creatinine Ratio 16.8 (6-22); Blood Urea Nitrogen 20 mg/dL (9-20); Carbon Dioxide 30 mmol/L (22-32); Chloride 98 mmol/L (98-107); Estimated Glomerular Filt Rate > 60 mL/min (>60); Glucose 165 mg/dL (80-110); HEMOLYSIS 18 (0-50); Potassium 4.6 mmol/L (3.4-5.1); Sodium 138 mmol/L (137-145)
[2023-10-08 16:45] LABS: Creatinine Urine Random 75.9 mg/dL
[2023-10-08 16:48] LABS: Microalbumin Urine Random < 0.6 mg/dL (0-1.6)
== END ==
PROVIDERS: PCP Internal Medicine; Referring Provider Internal Medicine; Visit Provider Internal Medicine
DX: E11.9 Type 2 diabetes mellitus without complications (principal); N18.30 Chronic kidney disease, stage 3 unspecified
CPT/HCPCS: 36415; 80048; 82043; 82570; 83036

== ENCOUNTER → 2023-10-24 10:23 | Outpatient (CLI) | payer MEDICARE, OTHER, SELFPAY | PROVIDERS: PCP Internal Medicine; Visit Provider Physician Assistant | DX: J02.9 Acute pharyngitis, unspecified (principal) | CPT/HCPCS: 87070 ==

== ENCOUNTER → 2023-12-29 09:57 | Outpatient (CLI) | payer MEDICARE, OTHER, SELFPAY ==
[2023-12-29 13:12] LABS: Alanine Aminotransferase 98 IU/L (<50); Albumin 4.5 g/dL (3.5-5.0); Albumin Globulin Ratio 1.5 (1.0-2.8); Alkaline Phosphatase 42 U/L (38-126); Aspartate Aminotransferase 75 IU/L (17-59); BUN Creatinine Ratio 13.4 (6-22); Bilirubin Total 0.6 mg/dL (0.2-1.3); Blood Urea Nitrogen 17 mg/dL (9-20); Calcium 9.7 mg/dL (8.4-10.2); Carbon Dioxide 29 mmol/L (22-32); Chloride 102 mmol/L (98-107); Cholesterol 238 mg/dL (140-199); Estimated Glomerular Filt Rate > 60 mL/min (>60); Glucose 180 mg/dL (80-110); HDL Cholesterol 31 mg/dL (40-60); HEMOLYSIS < 15 (0-50); LDL Cholesterol Calculated 139 mg/dL (<100); Sodium 140 mmol/L (137-145); Total Protein 7.5 g/dL (6.3-8.2); Triglycerides 340 mg/dL (35-150)
[2023-12-30 11:10] LABS: Hemoglobin A1C% w Est Avg Glu 7.7 % (4.0-6.0)
== END ==
PROVIDERS: PCP Internal Medicine; Referring Provider Internal Medicine; Visit Provider Internal Medicine
DX: E11.9 Type 2 diabetes mellitus without complications (principal); N18.30 Chronic kidney disease, stage 3 unspecified; E78.2 Mixed hyperlipidemia
CPT/HCPCS: 36415; 80053; 80061; 83036

== ENCOUNTER → 2024-04-14 15:09 | Outpatient (CLI) | payer MEDICARE, OTHER, SELFPAY ==
[2024-04-14 16:49] LABS: Hemoglobin A1C% w Est Avg Glu 6.9 % (4.0-6.0)
[2024-04-14 17:01] LABS: BUN Creatinine Ratio 15.9 (6-22); Blood Urea Nitrogen 18 mg/dL (9-20); Calcium 9.2 mg/dL (8.4-10.2); Carbon Dioxide 28 mmol/L (22-32); Chloride 103 mmol/L (98-107); Estimated Glomerular Filt Rate > 60 mL/min (>60); Glucose 166 mg/dL (80-110); HEMOLYSIS < 15 (0-50); Sodium 138 mmol/L (137-145)
== END ==
PROVIDERS: PCP Internal Medicine; Referring Provider Internal Medicine; Visit Provider Internal Medicine
DX: E11.9 Type 2 diabetes mellitus without complications (principal); N18.30 Chronic kidney disease, stage 3 unspecified
CPT/HCPCS: 36415; 80048; 83036

== ENCOUNTER → 2024-07-14 08:23 | Outpatient (CLI) | payer MEDICARE, OTHER, SELFPAY ==
[2024-07-14 09:56] LABS: Alanine Aminotransferase 55 IU/L (<50); Albumin 4.5 g/dL (3.5-5.0); Alkaline Phosphatase 37 U/L (38-126); Aspartate Aminotransferase 53 IU/L (17-59); BUN Creatinine Ratio 12.4 (6-22); Bilirubin Total 0.6 mg/dL (0.2-1.3); Blood Urea Nitrogen 16 mg/dL (9-20); Calcium 9.4 mg/dL (8.4-10.2); Carbon Dioxide 27 mmol/L (22-32); Chloride 102 mmol/L (98-107); Cholesterol 189 mg/dL (140-199); Estimated Glomerular Filt Rate > 60 mL/min (>60); Globulin 2.3 g/dL (1.7-4.1); Glucose 148 mg/dL (80-110); HDL Cholesterol 33 mg/dL (40-60); HEMOLYSIS < 15 (0-50); LDL Cholesterol Calculated 103 mg/dL (<100); Potassium 4.9 mmol/L (3.4-5.1); Sodium 137 mmol/L (137-145); Total Protein 6.8 g/dL (6.3-8.2); Triglycerides 264 mg/dL (35-150)
[2024-07-14 10:03] LABS: Hemoglobin A1C% w Est Avg Glu 6.7 % (4.0-6.0)
[2024-07-14 10:06] LABS: LDL Cholesterol Direct 112 mg/dL (<100)
[2024-07-14 10:42] LABS: Creatinine Urine Random 78.85 mg/dL
[2024-07-14 11:05] LABS: Microalbumin Urine Random < 0.6 mg/dL (0-1.6)
== END ==
PROVIDERS: PCP Internal Medicine; Referring Provider Internal Medicine; Visit Provider Internal Medicine
DX: E11.9 Type 2 diabetes mellitus without complications (principal); E78.2 Mixed hyperlipidemia; N18.30 Chronic kidney disease, stage 3 unspecified
CPT/HCPCS: 36415; 80053; 80061; 82043; 82570; 83036; 83721

== ENCOUNTER → 2024-09-07 09:45 | Outpatient (CLI) | payer MEDICARE, OTHER, SELFPAY ==
--- NOTE | 2024-09-07 09:46 | DI.RAD.S_ITS ---
PROCEDURE: XR CERVICAL SPINE 2V OR 3V INDICATIONS: neck pain TECHNIQUE: 3 view(s) of the cervical spine were acquired. COMPARISON: None. FINDINGS: Bones: No fractures or dislocations to the C6 level. Straightening of the normal cervical lordosis. There are multilevel degenerative changes of the cervical spine with facet and uncovertebral arthropathy, disc height loss with degenerative endplate changes and spurring. This is severe at C3-C4. The lateral masses of C1 appear intact on the odontoid view. No suspicious bony lesions. Soft tissues: No prevertebral soft tissue swelling. IMPRESSION: Multilevel degenerative changes of the cervical spine, severe at C3-C4. Dictated by: Danilo Bennett M.D. on 09/07/2024 at 14:13 Approved by: Danilo Bennett M.D. on 09/07/2024 at 14:15
== END ==
PROVIDERS: PCP Internal Medicine; Referring Provider Internal Medicine; Visit Provider Internal Medicine
DX: M47.812 Spondylosis without myelopathy or radiculopathy, cervical region (principal); M54.2 Cervicalgia
CPT/HCPCS: 72040

== ENCOUNTER 2024-12-06 08:15 | Outpatient (RCR) | payer MEDICARE, OTHER, SELFPAY ==
--- NOTE | 2024-09-27 11:23 | PT.OIE ---
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) Past Surgical History (Last Reviewed 01/14/22 @ 11:42 by Lit Domínguez MD) History of hip replacement (11/29/13) Status post appendectomy Status post hernia repair Status post total replacement of left hip Visit Care Team Role Provider Type Lit Domínguez MD Attending Provider Physician Family Provider Primary Care Provider Referring Provider Specialty: Internal Medicine Address: [address] [place] [address], [address], [facility] Email: [email or web address] Therapy Initial Evaluation PT-OP-A Visit Information Start: 09/24/24 13:53 Freq: Status: Active Protocol: Document 09/27/24 09:00 NM (Rec: 09/27/24 09:48 NM [id number]) Out-Patient Physical Therapy Visit Information Visit Information Visit Type Initial Evaluation Visit Note KX after 19 visits Visit Start Time 09:02 Visit Stop Time 09:46 Visit Number 1 Evaluation Information Evaluation Date 09/27/24 Precautions Precautions fall risk, slow positional changes PT-OP-B Current Condition Start: 09/24/24 13:53 Freq: Status: Active Protocol: Document 09/27/24 09:00 NM (Rec: 09/27/24 09:48 NM [id number]) Current Condition History of Current Condition Onset Date 6 months ago Current Complaints stiffness, pain, headaches History of Current Condition Pt presents with neck pain. He states that his neck is stiff all the time and tight in the back. He reprots that he gets a pain the radiates from the base of L neck to the L head ( up), prn to the R side. He reports that he gets hellacious headaches; he has to close his eyes and do neck stretches. He reports most limitations with tilting head. He rides motor cycles, reports that his head moves into ext. Has been occuring for 6 months, no SUNIL. He reports that he has jaw pain with opening, on L side e.g. for a yawn. He reports no muscle spasms in neck but does get them in back. Has taken cloroxozone for his legs. He has had a fall > 1 year ago, when his leg gave out and hit head on freezer in back. He reports that he has numbness/ tingling into B hands, getting EMG in October; R>L. He states fingers 3-5, numbness/ tingling, present some of the time. Occurs when reaching up/over, resting of arm in dependent position (arm rest in chair). He reports depends on how resting his arm. 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 Headaches last usually several minutes to hours unless he takes ibuprofen (1/2 hr); wraps around back of head near crown, occasionally behind eyes. Pt denies nausea, vomiting; he does report dizziness with standing, leaning back to shut eyes; not present when rolls over with bed. Prior Treatments and Tests Cervical spine radiograph 2023: Impression- multilevel degenerative changes of cervical spine, severe at C3- C4. Treatment Goals Patient/Caregiver Goals unhurt and unstiff PT-OP-C Subjective Start: 09/24/24 13:53 Freq: Status: Active Protocol: Document 09/27/24 09:00 NM (Rec: 09/27/24 09:48 NM [id number]) OP-PT Subjective Patient Comments Patient Comments Pt consents to participate in evaluation Patient Questionnaires Neck Disability Index NDI Score OP-PT Pain Assessment Location cervical spine Pain Location Details L > R side, post neck Intensity 6 Scale Used Numeric (0 - 10) Description Aching,Dull,Sharp Frequency Intermittent Radiating Location L sided to neck Pain Aggravating Factors Position,Sitting,Coughing Other Pain Aggravating Factors sleeping (2-5x/wk); non- dependent; yawn @ jaw Pain Alleviating Factors Medication Other Pain Alleviating Factors support neck PT-OP-F Manual Assessment Start: 09/24/24 13:53 Freq: Status: Active Protocol: Document 09/27/24 09:00 NM (Rec: 09/27/24 09:48 NM [id number]) Manual Assessments Soft Tissue Assessment Soft Tissue Mobility Assessment Increased tightness along L > R cervical paraspinals, periscapulars. Joint Mobility Assessment Joint Mobility Assessment Decreased lateral gliding and mobility with PA mobilizations of cervical spine, decreased thoracic mobility. R GHJ clicking, non painful Other Manual Assessments Other Manual Assessments Slight deviation with opening mouth at L TMJ, clicking B (R> L) PT-OP-G Mobility & Gait Start: 09/24/24 13:53 Freq: Status: Active Protocol: Document 09/27/24 09:00 NM (Rec: 09/27/24 11:05 NM [id number]) OP Gait Assessment Gait Gait Assistance Required: Independent Distance (Feet) 150 Assistive Devices Assistive Device None Gait Deviations General Gait Pattern Antalgic,Decreased Stride Length Factors Limiting Gait Function Factors Limiting Gait Function Decreased Strength,Limited Range of Motion,Pain,Poor Balance Comments Gait Comments Decreased stance time on RLE PT-OP-H Neuro Start: 09/24/24 13:53 Freq: Status: Active Protocol: Document 09/27/24 09:00 NM (Rec: 09/27/24 11:05 NM [id number]) Sensation Evaluation Comments Summary Comments BUE equally intact to light touch sensation; will continue to assess sharp/dull in future sessions PT-OP-J Posture/Palpation/Skin Start: 09/24/24 13:53 Freq: Status: Active Protocol: Document 09/27/24 09:00 NM (Rec: 09/27/24 09:48 NM [id number]) Posture Evaluation Position Standing Head/C-Spine Posture C-Spine Flattened,Forward Head L-Spine Posture Decreased Lordosis Scapula Posture (R) Elevated Arm Posture (L) Internally Rotated,(R) Internally Rotated Pelvis Posture Posterior Tilted Palpation Assessment Location cervical spine Palpation Findings Soft Tissue Tightness,Muscle Guarding,Tenderness Palpation Details Tenderness along mid-cervical spine at midline spinous processes, none laterally or at upper cervical spine Tightness along L sided paraspinals > R sided, traps, levator scapula, scalenes, SCM , post cuff, rhomboids, lat, pecs PT-OP-K Range of Motion Start: 09/24/24 13:53 Freq: Status: Active Protocol: Document 09/27/24 09:00 NM (Rec: 09/27/24 09:48 NM [id number]) Cervical Spine Range of Motion Cervical Spine Active Degrees Flexion 48 Extension 25 Rotation Left 50 Rotation Right 55 Lateral Flexion Left 15 Lateral Flexion Right 15 Comments pain on R w/ flex; B LF PT-OP-L Special Tests Start: 09/24/24 13:53 Freq: Status: Active Protocol: Document 09/27/24 09:00 NM (Rec: 09/27/24 11:07 NM [id number]) Special Tests Cervical Spine Special Tests Upper Limb Tension Test Test Results + Comments R median, ulnar; L ulnar, radial Traction Test Results + Comments lessens radicular symptoms Spurling's Test Test Results + Comments R radicular, L local Neural Special Tests- Upper Body Carpal compression Test Results + Elbow Flexion Test Test Results + PT-OP-M Strength Start: 09/24/24 13:53 Freq: Status: Active Protocol: Document 09/27/24 09:00 NM (Rec: 09/27/24 11:05 NM [id number]) Cervical Spine Strength Cervical Spine Manual Muscle Testing Flexion (C1-2) 4 Good Extension 4 Good Rotation Left 4 Good Rotation Right 4 Good Lateral Flexion Left (C3) 4 Good Lateral Flexion Right (C3) 4 Good Shoulder Strength Shoulder Manual Muscle Testing Right Flexion 4 Good Abduction (C5) 4 Good Left Flexion 4 Good Abduction (C5) 4 Good Elbow/Forearm Strength Elbow and Forearm Manual Muscle Testing Right Flexion (C6) 4 Good Extension (C7) 4 Good Left Flexion (C6) 4 Good Extension (C7) 4 Good Wrist Strength Wrist Manual Muscle Testing Right Flexion (C7) 4 Good Extension (C6) 4 Good Comments Finger abd/thumb ext and add intact 4/5 Left Flexion (C7) 4 Good Extension (C6) 4 Good Comments Finger abd/thumb ext and add intact 4/5 PT-OP-Q Treatments Start: 09/24/24 13:53 Freq: Status: Active Protocol: Document 09/27/24 09:00 NM (Rec: 09/27/24 11:05 NM [id number]) Therapeutic Exercises Supine Exercises cervical retraction Side bilateral Equipment Used pillow behind head for comfort Reps/Minutes 15 Comments increased time for correct execution; cues form Sitting Exercises scapular isometrics Sitting Exercise Name scapular retraction Side bilateral Reps/Minutes 10x5 Comments limited rom; cued no shoulder elevation PT-OP-T Assessment and Plan Start: 09/24/24 13:53 Freq: Status: Active Protocol: Document 09/27/24 09:00 NM (Rec: 09/27/24 11:05 NM [id number]) Physical Therapy Assessment Rehab Potential Rehabilitation Potential Good Evaluation Complexity Number of Personal Factors/Comorbidities 3 or More Number of Body Systems Impaired 4 or More Clinical Presentation at Evaluation Stable Impairments Impairments Activity Tolerance,Balance, Functional Activities, Functional Mobility,Gait, Integument,Pain,Posture,ROM, Sensation,Soft Tissue Mobility ,Strength,Vestibular,Visual Motor Other Concerns Fall Risk increased Age Related Concerns PMH: back pain, diabetes type II, falls, headaches, hearing problems, joint replacement (L SILVIO, R SILVIO), dizziness, neck pain, vision problems. Surgeries: appendix removal, total joints (see above). Pt also reports dizziness with cervical ext, positional changes. Hx of back and BLE pain, including radicular pain , that leads to his legs giving out and hx of falls. Will be having an EMG in October to address numbness/ tingling symptoms into R hand due to possible carpal tunnel Goals Three Impairment NDI 24/100 [employer] President [employer] Goal (LTG) Pt will decrease NDI <15% impairment in order to demonstrate improve symptom management during ADLs/IADLs and quality of life LTG Duration 10 weeks Two Impairment cervical spine AROM limited Short Term Goal (STG) Pt will improve B cervical lateral flexion > 20 deg in order to improve mobility during dressing STG Duration 6 weeks [employer] Goal (LTG) Pt will improve B cervical rotation to > 65 deg in order to improve visual scanning and compensations due to limited tilt LTG Duration 10 weeks One Impairment not performing HEP Short Term Goal (STG) Pt will be educated on sitting and sleeping ergonomics for postural education and to improve symptom management STG Duration 5 weeks [employer] President [employer] Goal (LTG) Pt will be IND with HEP in order to maximize progression with PT and transition to maintenance program upon discharge from PT LTG Duration 10 weeks Assessment Summary Assessment Pt is a 68 y.o. presenting with chronic B neck pain, L>R, with radicular symptoms B, R> L. Symptoms began 6 months ago , no known SUNIL. Primary complaints of stiffness. Hx of fall 1 year ago where pt his head. Radicular symptoms are worse into R finger 3-5; also provoked with ULTT and cubital /carpal compression. Pt demonstrates limitations in cervical spine AROM globally but especially in frontal plane. Pt has concurrent headaches, usually L sided. His symptoms are exacerbated with arm elevation, vertebral compression, ULTT. Pt's radicular symptoms are lessened with cervical traction. Pt exhibits increased muscle tension and soft tissue restrictions along cervicothoracic paraspinals and periscapulars. Pt has had radiograph imaging indicating degenerative changes, especially at C3-4. Pt has impairments in ROM, strength, sensation, sleeping, pain management, headache management, and activity tolerance. Additionally, pt became dizzy with position change from supine to sitting; will be assess for orthostatic changes in future sessions. PT educated pt on exam findings and plan of care . Initiated HEP to begin address muscle lengthening and activation. Pt would benefit from skilled PT for progressive flexibility and strengthening in order to improve symptom management and ability to perform ADLs/IADLs . Physical Therapy Plan Frequency and Duration Frequency of Treatment 2x/Week Duration of treatment (weeks) 10 Plan of Care Start Date 09/27/24 Plan of Care End Date 12/10/24 Therapeutic Interventions Therapeutic Interventions Canalithic Repositioning,Gait Training,Home Exercise Program ,Joint Mobilizations,Manual Therapy,Neuromuscular Re- education,Orthotic/Prosthetic Management,Patient/Caregiver Education,Self-Care/Home Management,Sensory Integration ,Soft Tissue Mobilization, Taping,Therapeutic Activities, Therapeutic Exercises Modalities Cold Pack/Ice Massage,Electric Stimulation,Hot Packs, Ultrasound Other Therapeutic Interventions TMD, cervicogenic dizziness trigger point treatment Next Visit Focus/Plan Next Note Type Treatment Note Next Visit Plan VA screen, sharp/dull testing, assess BP and orthostatics Review HEP; CS isometrics, self STM teach, scapular mobility and pec stretch Manual: cervical spine, periscapulars, SOR
--- NOTE | 2024-09-27 11:25 | PT.OIE ---
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) Past Surgical History (Last Reviewed 01/14/22 @ 11:42 by Lit Domínguez MD) History of hip replacement (11/29/13) Status post appendectomy Status post hernia repair Status post total replacement of left hip Visit Care Team Role Provider Type Lit Domínguez MD Attending Provider Physician Family Provider Primary Care Provider Referring Provider Specialty: Internal Medicine Address: [address] [place] [address], [address], [facility] Email: [email or web address] Physical Therapy Initial Evaluation PT-OP-A Visit Information Start: 09/24/24 13:53 Freq: Status: Active Protocol: Document 09/27/24 09:00 NM (Rec: 09/27/24 09:48 NM [id number]) Out-Patient Physical Therapy Visit Information Visit Information Visit Type Initial Evaluation Visit Note KX after 19 visits Visit Start Time 09:02 Visit Stop Time 09:46 Visit Number 1 Evaluation Information Evaluation Date 09/27/24 Precautions Precautions fall risk, slow positional changes PT-OP-B Current Condition Start: 09/24/24 13:53 Freq: Status: Active Protocol: Document 09/27/24 09:00 NM (Rec: 09/27/24 09:48 NM [id number]) Current Condition History of Current Condition Onset Date 6 months ago Current Complaints stiffness, pain, headaches History of Current Condition Pt presents with neck pain. No reports of weakness into hands or arms. He states that his neck is stiff all the time and tight in the back. He reprots that he gets a pain the radiates from the base of L neck to the L head (up), prn to the R side. He reports that he gets hellacious headaches; he has to close his eyes and do neck stretches. He reports most limitations with tilting head. He rides motor cycles, reports that his head moves into ext. Has been occuring for 6 months, no SUNIL . He reports that he has jaw pain with opening, on L side e .g. for a yawn. He reports no muscle spasms in neck but does get them in back. Has taken cloroxozone for his legs. He has had a fall > 1 year ago, when his leg gave out and hit head on freezer in back. He reports that he has numbness/ tingling into B hands, getting EMG in October; R>L. He states fingers 3-5, numbness/ tingling, present some of the time. Occurs when reaching up/over, resting of arm in dependent position (arm rest in chair). He reports depends on how resting his arm. 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 Headaches last usually several minutes to hours unless he takes ibuprofen (1/2 hr); wraps around back of head near crown, occasionally behind eyes. Pt denies nausea, vomiting; he does report dizziness with standing, leaning back to shut eyes; not present when rolls over with bed. Prior Treatments and Tests Cervical spine radiograph 2023: Impression- multilevel degenerative changes of cervical spine, severe at C3- C4. Treatment Goals Patient/Caregiver Goals unhurt and unstiff PT-OP-C Subjective Start: 09/24/24 13:53 Freq: Status: Active Protocol: Document 09/27/24 09:00 NM (Rec: 09/27/24 09:48 NM [id number]) OP-PT Subjective Patient Comments Patient Comments Pt consents to participate in evaluation Patient Questionnaires Neck Disability Index NDI Score 24/100 OP-PT Pain Assessment Location cervical spine Pain Location Details L > R side, post neck Intensity 6 Scale Used Numeric (0 - 10) Description Aching,Dull,Sharp Frequency Intermittent Radiating Location L sided to neck Pain Aggravating Factors Position,Sitting,Coughing Other Pain Aggravating Factors sleeping (2-5x/wk); non- dependent; yawn @ jaw Pain Alleviating Factors Medication Other Pain Alleviating Factors support neck PT-OP-F Manual Assessment Start: 09/24/24 13:53 Freq: Status: Active Protocol: Document 09/27/24 09:00 NM (Rec: 09/27/24 09:48 NM [id number]) Manual Assessments Soft Tissue Assessment Soft Tissue Mobility Assessment Increased tightness along L > R cervical paraspinals, periscapulars. Joint Mobility Assessment Joint Mobility Assessment Decreased lateral gliding and mobility with PA mobilizations of cervical spine, decreased thoracic mobility. R GHJ clicking, non painful Other Manual Assessments Other Manual Assessments Slight deviation with opening mouth at L TMJ, clicking B (R> L) PT-OP-G Mobility & Gait Start: 09/24/24 13:53 Freq: Status: Active Protocol: Document 09/27/24 09:00 NM (Rec: 09/27/24 11:05 NM [id number]) OP Gait Assessment Gait Gait Assistance Required: Independent Distance (Feet) 150 Assistive Devices Assistive Device None Gait Deviations General Gait Pattern Antalgic,Decreased Stride Length Factors Limiting Gait Function Factors Limiting Gait Function Decreased Strength,Limited Range of Motion,Pain,Poor Balance Comments Gait Comments Decreased stance time on RLE PT-OP-H Neuro Start: 09/24/24 13:53 Freq: Status: Active Protocol: Document 09/27/24 09:00 NM (Rec: 09/27/24 11:05 NM [id number]) Sensation Evaluation Comments Summary Comments BUE equally intact to light touch sensation; will continue to assess sharp/dull in future sessions Deep Tendon Reflex & Clonus Assessment Deep Tendon Reflex Bilateral Tricep Deep Tendon Reflex 1+ Diminished Bilateral Brachioradialis Deep Tendon Reflex 2+ Normal Bilateral Bicep Deep Tendon Reflex 1+ Diminished PT-OP-J Posture/Palpation/Skin Start: 09/24/24 13:53 Freq: Status: Active Protocol: Document 09/27/24 09:00 NM (Rec: 09/27/24 09:48 NM [id number]) Posture Evaluation Position Standing Head/C-Spine Posture C-Spine Flattened,Forward Head L-Spine Posture Decreased Lordosis Scapula Posture (R) Elevated Arm Posture (L) Internally Rotated,(R) Internally Rotated Pelvis Posture Posterior Tilted Palpation Assessment Location cervical spine Palpation Findings Soft Tissue Tightness,Muscle Guarding,Tenderness Palpation Details Tenderness along mid-cervical spine at midline spinous processes, none laterally or at upper cervical spine Tightness along L sided paraspinals > R sided, traps, levator scapula, scalenes, SCM , post cuff, rhomboids, lat, pecs PT-OP-K Range of Motion Start: 09/24/24 13:53 Freq: Status: Active Protocol: Document 09/27/24 09:00 NM (Rec: 09/27/24 09:48 NM [id number]) Cervical Spine Range of Motion Cervical Spine Active Degrees Flexion 48 Extension 25 Rotation Left 50 Rotation Right 55 Lateral Flexion Left 15 Lateral Flexion Right 15 Comments pain on R w/ flex; B LF PT-OP-L Special Tests Start: 09/24/24 13:53 Freq: Status: Active Protocol: Document 09/27/24 09:00 NM (Rec: 09/27/24 11:07 NM [id number]) Special Tests Cervical Spine Special Tests Upper Limb Tension Test Test Results + Comments R median, ulnar; L ulnar, radial Traction Test Results + Comments lessens radicular symptoms Spurling's Test Test Results + Comments R radicular, L local Neural Special Tests- Upper Body Carpal compression Test Results + Elbow Flexion Test Test Results + PT-OP-M Strength Start: 09/24/24 13:53 Freq: Status: Active Protocol: Document 09/27/24 09:00 NM (Rec: 09/27/24 11:05 NM [id number]) Cervical Spine Strength Cervical Spine Manual Muscle Testing Flexion (C1-2) 4 Good Extension 4 Good Rotation Left 4 Good Rotation Right 4 Good Lateral Flexion Left (C3) 4 Good Lateral Flexion Right (C3) 4 Good Shoulder Strength Shoulder Manual Muscle Testing Right Flexion 4 Good Abduction (C5) 4 Good Left Flexion 4 Good Abduction (C5) 4 Good Elbow/Forearm Strength Elbow and Forearm Manual Muscle Testing Right Flexion (C6) 4 Good Extension (C7) 4 Good Left Flexion (C6) 4 Good Extension (C7) 4 Good Wrist Strength Wrist Manual Muscle Testing Right Flexion (C7) 4 Good Extension (C6) 4 Good Comments Finger abd/thumb ext and add intact 4/5 Left Flexion (C7) 4 Good Extension (C6) 4 Good Comments Finger abd/thumb ext and add intact 4/5 PT-OP-Q Treatments Start: 09/24/24 13:53 Freq: Status: Active Protocol: Document 09/27/24 09:00 NM (Rec: 09/27/24 11:05 NM [id number]) Therapeutic Exercises Supine Exercises cervical retraction Side bilateral Equipment Used pillow behind head for comfort Reps/Minutes 15 Comments increased time for correct execution; cues form Sitting Exercises scapular isometrics Sitting Exercise Name scapular retraction Side bilateral Reps/Minutes 10x5 Comments limited rom; cued no shoulder elevation PT-OP-T Assessment and Plan Start: 09/24/24 13:53 Freq: Status: Active Protocol: Document 09/27/24 09:00 NM (Rec: 09/27/24 11:05 NM [id number]) Physical Therapy Assessment Rehab Potential Rehabilitation Potential Good Evaluation Complexity Number of Personal Factors/Comorbidities 3 or More Number of Body Systems Impaired 4 or More Clinical Presentation at Evaluation Stable Impairments Impairments Activity Tolerance,Balance, Functional Activities, Functional Mobility,Gait, Integument,Pain,Posture,ROM, Sensation,Soft Tissue Mobility ,Strength,Vestibular,Visual Motor Other Concerns Fall Risk increased Age Related Concerns PMH: back pain, diabetes type II, falls, headaches, hearing problems, joint replacement (L SILVIO, R SILVIO), dizziness, neck pain, vision problems. Surgeries: appendix removal, total joints (see above). Pt also reports dizziness with cervical ext, positional changes. Hx of back and BLE pain, including radicular pain , that leads to his legs giving out and hx of falls. Will be having an EMG in October to address numbness/ tingling symptoms into R hand due to possible carpal tunnel Goals Three Impairment NDI 24/100 Prison Goal (LTG) Pt will decrease NDI <15% impairment in order to demonstrate improve symptom management during ADLs/IADLs and quality of life LTG Duration 10 weeks Two Impairment cervical spine AROM limited Short Term Goal (STG) Pt will improve B cervical lateral flexion > 20 deg in order to improve mobility during dressing STG Duration 6 weeks Manuscript Reader Goal (LTG) Pt will improve B cervical rotation to > 65 deg in order to improve visual scanning and compensations due to limited tilt LTG Duration 10 weeks One Impairment not performing HEP Short Term Goal (STG) Pt will be educated on sitting and sleeping ergonomics for postural education and to improve symptom management STG Duration 5 weeks Manuscript Reader Goal (LTG) Pt will be IND with HEP in order to maximize progression with PT and transition to maintenance program upon discharge from PT LTG Duration 10 weeks Assessment Summary Assessment Pt is a 68 y.o. presenting with chronic B neck pain, L>R, with radicular symptoms B, R> L. Symptoms began 6 months ago , no known SUNIL. Primary complaints of stiffness. Hx of fall 1 year ago where pt his head. Radicular symptoms are worse into R finger 3-5; also provoked with ULTT and cubital /carpal compression. Pt demonstrates limitations in cervical spine AROM globally but especially in frontal plane. Pt has concurrent headaches, usually L sided. His symptoms are exacerbated with arm elevation, vertebral compression, ULTT. Pt's radicular symptoms are lessened with cervical traction. Pt exhibits increased muscle tension and soft tissue restrictions along cervicothoracic paraspinals and periscapulars. Pt has had radiograph imaging indicating degenerative changes, especially at C3-4. Pt has impairments in ROM, strength, sensation, sleeping, pain management, headache management, and activity tolerance. Additionally, pt became dizzy with position change from supine to sitting; will be assess for orthostatic changes in future sessions. PT educated pt on exam findings and plan of care . Initiated HEP to begin address muscle lengthening and activation. Pt would benefit from skilled PT for progressive flexibility and strengthening in order to improve symptom management and ability to perform ADLs/IADLs . Physical Therapy Plan Frequency and Duration Frequency of Treatment 2x/Week Duration of treatment (weeks) 10 Plan of Care Start Date 09/27/24 Plan of Care End Date 12/10/24 Therapeutic Interventions Therapeutic Interventions Canalithic Repositioning,Gait Training,Home Exercise Program ,Joint Mobilizations,Manual Therapy,Neuromuscular Re- education,Orthotic/Prosthetic Management,Patient/Caregiver Education,Self-Care/Home Management,Sensory Integration ,Soft Tissue Mobilization, Taping,Therapeutic Activities, Therapeutic Exercises Modalities Cold Pack/Ice Massage,Electric Stimulation,Hot Packs, Ultrasound Other Therapeutic Interventions TMD, cervicogenic dizziness trigger point treatment Next Visit Focus/Plan Next Note Type Treatment Note Next Visit Plan VA screen, sharp/dull testing, assess BP and orthostatics Review HEP; CS isometrics, self STM teach, scapular mobility and pec stretch Manual: cervical spine, periscapulars, SOR
--- NOTE | 2024-09-29 10:39 | PT.OTN ---
Current Diagnoses Stiffness of other specified joint, not elsewhere classified (09/29/24) Radiculopathy, cervical region (09/29/24) Cervicalgia (09/29/24) Other lack of coordination (09/29/24) Weakness (09/29/24) Physical Therapy Treatment Note PT-OP-A Visit Information Start: 09/24/24 13:53 Freq: Status: Active Protocol: Document 09/29/24 09:48 NM (Rec: 09/29/24 10:38 NM [id number]) Out-Patient Physical Therapy Visit Information Visit Information Visit Type Treatment Note Visit Note KX after 19 visits Visit Start Time 09:48 Visit Stop Time 10:30 Visit Number 2 PT-OP-B Current Condition Start: 09/24/24 13:53 Freq: Status: Active Protocol: Document 09/27/24 09:00 NM (Rec: 09/27/24 09:48 NM [id number]) Current Condition History of Current Condition Onset Date 6 months ago Current Complaints stiffness, pain, headaches History of Current Condition Pt presents with neck pain. No reports of weakness into hands or arms. He states that his neck is stiff all the time and tight in the back. He reprots that he gets a pain the radiates from the base of L neck to the L head (up), prn to the R side. He reports that he gets hellacious headaches; he has to close his eyes and do neck stretches. He reports most limitations with tilting head. He rides motor cycles, reports that his head moves into ext. Has been occuring for 6 months, no SUNIL . He reports that he has jaw pain with opening, on L side e .g. for a yawn. He reports no muscle spasms in neck but does get them in back. Has taken cloroxozone for his legs. He has had a fall > 1 year ago, when his leg gave out and hit head on freezer in back. He reports that he has numbness/ tingling into B hands, getting EMG in October; R>L. He states fingers 3-5, numbness/ tingling, present some of the time. Occurs when reaching up/over, resting of arm in dependent position (arm rest in chair). He reports depends on how resting his arm. 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 Headaches last usually several minutes to hours unless he takes ibuprofen (1/2 hr); wraps around back of head near crown, occasionally behind eyes. Pt denies nausea, vomiting; he does report dizziness with standing, leaning back to shut eyes; not present when rolls over with bed. Prior Treatments and Tests Cervical spine radiograph 2023: Impression- multilevel degenerative changes of cervical spine, severe at C3- C4. Treatment Goals Patient/Caregiver Goals unhurt and unstiff PT-OP-C Subjective Start: 09/24/24 13:53 Freq: Status: Active Protocol: Document 09/29/24 09:48 NM (Rec: 09/29/24 10:38 NM [id number]) OP-PT Subjective Patient Comments Patient Comments Pt reports that he has 2/10 neck pain georgie near SCM today. He is wearing his R wrist brace. No changes since evaluation. He has trialed HEP . Has R sided tinnitus and fullness in ear since 3 weeks ago (was B but now only R side ) PT-OP-F Manual Assessment Start: 09/24/24 13:53 Freq: Status: Active Protocol: Document 09/29/24 09:48 NM (Rec: 09/29/24 10:38 NM [id number]) Manual Assessments Soft Tissue Assessment Soft Tissue Mobility Assessment Increased tightness along L > R cervical paraspinals, periscapulars. Joint Mobility Assessment Joint Mobility Assessment Decreased lateral gliding and mobility with PA mobilizations of cervical spine, decreased thoracic mobility. R GHJ clicking, non painful Other Manual Assessments Other Manual Assessments Slight deviation with opening mouth at L TMJ, clicking B (R> L) Cranial nerves: slight R deviation of tongue, no abnormalities with smell, sight, hearing. PT-OP-G Mobility & Gait Start: 09/24/24 13:53 Freq: Status: Active Protocol: Document 09/27/24 09:00 NM (Rec: 09/27/24 11:05 NM [id number]) OP Gait Assessment Gait Gait Assistance Required: Independent Distance (Feet) 150 Assistive Devices Assistive Device None Gait Deviations General Gait Pattern Antalgic,Decreased Stride Length Factors Limiting Gait Function Factors Limiting Gait Function Decreased Strength,Limited Range of Motion,Pain,Poor Balance Comments Gait Comments Decreased stance time on RLE PT-OP-H Neuro Start: 09/24/24 13:53 Freq: Status: Active Protocol: Document 09/29/24 09:48 NM (Rec: 09/29/24 10:38 NM [id number]) Sensation Evaluation Comments Summary Comments BUE equally intact to light touch sensation; mild decrease sharp/dull on C6-8 R>L PT-OP-J Posture/Palpation/Skin Start: 09/24/24 13:53 Freq: Status: Active Protocol: Document 09/27/24 09:00 NM (Rec: 09/27/24 09:48 NM [id number]) Posture Evaluation Position Standing Head/C-Spine Posture C-Spine Flattened,Forward Head L-Spine Posture Decreased Lordosis Scapula Posture (R) Elevated Arm Posture (L) Internally Rotated,(R) Internally Rotated Pelvis Posture Posterior Tilted Palpation Assessment Location cervical spine Palpation Findings Soft Tissue Tightness,Muscle Guarding,Tenderness Palpation Details Tenderness along mid-cervical spine at midline spinous processes, none laterally or at upper cervical spine Tightness along L sided paraspinals > R sided, traps, levator scapula, scalenes, SCM , post cuff, rhomboids, lat, pecs PT-OP-K Range of Motion Start: 09/24/24 13:53 Freq: Status: Active Protocol: Document 09/27/24 09:00 NM (Rec: 09/27/24 09:48 NM [id number]) Cervical Spine Range of Motion Cervical Spine Active Degrees Flexion 48 Extension 25 Rotation Left 50 Rotation Right 55 Lateral Flexion Left 15 Lateral Flexion Right 15 Comments pain on R w/ flex; B LF PT-OP-L Special Tests Start: 09/24/24 13:53 Freq: Status: Active Protocol: Document 09/29/24 09:48 NM (Rec: 09/29/24 10:38 NM [id number]) Special Tests Cervical Spine Special Tests Vertebral a. screen Test Results BP 137/75 mmHg, no symptoms w/ positional testing Comments heart/carotid ausc/palp WFL; cranial n intact Upper Limb Tension Test Test Results + Comments R median, ulnar; L ulnar, radial PT-OP-M Strength Start: 09/24/24 13:53 Freq: Status: Active Protocol: Document 09/27/24 09:00 NM (Rec: 09/27/24 11:05 NM [id number]) Cervical Spine Strength Cervical Spine Manual Muscle Testing Flexion (C1-2) 4 Good Extension 4 Good Rotation Left 4 Good Rotation Right 4 Good Lateral Flexion Left (C3) 4 Good Lateral Flexion Right (C3) 4 Good Shoulder Strength Shoulder Manual Muscle Testing Right Flexion 4 Good Abduction (C5) 4 Good Left Flexion 4 Good Abduction (C5) 4 Good Elbow/Forearm Strength Elbow and Forearm Manual Muscle Testing Right Flexion (C6) 4 Good Extension (C7) 4 Good Left Flexion (C6) 4 Good Extension (C7) 4 Good Wrist Strength Wrist Manual Muscle Testing Right Flexion (C7) 4 Good Extension (C6) 4 Good Comments Finger abd/thumb ext and add intact 4/5 Left Flexion (C7) 4 Good Extension (C6) 4 Good Comments Finger abd/thumb ext and add intact 4/5 PT-OP-Q Treatments Start: 09/24/24 13:53 Freq: Status: Active Protocol: Document 09/29/24 09:48 NM (Rec: 09/29/24 10:38 NM [id number]) Therapeutic Exercises Supine Exercises pec stretch Supine Exercise Name T w/ HABD Side bilateral Reps/Minutes 10x5 cervical retraction Supine Exercise Name 1. retraction, 2. w/ rotation Side bilateral Equipment Used pillow behind head for comfort Reps/Minutes 1. 15, 2. 5 ea side Comments verbal and tactile cues for form Standing Exercises pec stretch Standing Exercise Name snow john paul and MWM w/ ball Side bilateral Equipment Used racquetball w/ pillowcase Reps/Minutes 60 Manual Therapy Treatment Consent Patient gave verbal consent for manual Yes treatment Soft Tissue Mobilization chest/trunk Body Location pec, LS, traps Mobilization Type Rolling,Sustained Pressure Intensity/Depth Moderate Body Position Supine Comments performed B. Monitored for pain. Increased restrictions B pecs R>L cervical spine Body Location suboccipitals, paraspinals, SCM, DNF, scalenes Mobilization Type Rolling,Sustained Pressure Intensity/Depth Moderate Body Position Supine Comments Increased restrictions R>L, [place] suboccipitals, SCM, DNF. Monitored for pain Joint Mobilizations ribs Joint B 1st ribs Direction caudal Grade III Body Position Supine Reps/Duration 10 ea Comments Elevated B, georgie L side. Monitored for pain PT-OP-T Assessment and Plan Start: 09/24/24 13:53 Freq: Status: Active Protocol: Document 09/29/24 09:48 NM (Rec: 09/29/24 10:38 NM [id number]) Physical Therapy Assessment Goals Three Impairment NDI 24/100 Lot Worker Goal (LTG) Pt will decrease NDI <15% impairment in order to demonstrate improve symptom management during ADLs/IADLs and quality of life LTG Duration 10 weeks Two Impairment cervical spine AROM limited Short Term Goal (STG) Pt will improve B cervical lateral flexion > 20 deg in order to improve mobility during dressing STG Duration 6 weeks Shelter Goal (LTG) Pt will improve B cervical rotation to > 65 deg in order to improve visual scanning and compensations due to limited tilt LTG Duration 10 weeks One Impairment not performing HEP Short Term Goal (STG) Pt will be educated on sitting and sleeping ergonomics for postural education and to improve symptom management STG Duration 5 weeks Shelter Goal (LTG) Pt will be IND with HEP in order to maximize progression with PT and transition to maintenance program upon discharge from PT LTG Duration 10 weeks Assessment Summary Assessment Pt tolerated session well, reports 2/10 pain at end of session. Increased time with manual treatment due to restrictions. Has increased restrictions of cervical paraspinals, pecs, and periscapulars, R>L. Initiated pec stretching to improve chest mobility and posture. Very restricted on R side, likely affecting neural tension. Continued with deep neck flexor activation for improved head position and postural retraining. Pt would continue to benefit from skilled PT for progressive flexibility and strengthening in order to facilitate better posture and symptom management . Physical Therapy Plan Frequency and Duration Frequency of Treatment 2x/Week Duration of treatment (weeks) 10 Plan of Care Start Date 09/27/24 Plan of Care End Date 12/10/24 Therapeutic Interventions Therapeutic Interventions Canalithic Repositioning,Gait Training,Home Exercise Program ,Joint Mobilizations,Manual Therapy,Neuromuscular Re- education,Orthotic/Prosthetic Management,Patient/Caregiver Education,Self-Care/Home Management,Sensory Integration ,Soft Tissue Mobilization, Taping,Therapeutic Activities, Therapeutic Exercises Modalities Cold Pack/Ice Massage,Electric Stimulation,Hot Packs, Ultrasound Other Therapeutic Interventions TMD, cervicogenic dizziness trigger point treatment Next Visit Focus/Plan Next Note Type Treatment Note Next Visit Plan assess BP and orthostatics open books, scap activation. Review HEP; CS isometrics, self STM teach, scapular mobility and pec stretch Manual: cervical spine, periscapulars, SOR- trial seated
--- NOTE | 2024-10-05 08:15 | PT.OTN ---
Current Diagnoses Stiffness of other specified joint, not elsewhere classified (10/05/24) Radiculopathy, cervical region (10/05/24) Cervicalgia (10/05/24) Other lack of coordination (10/05/24) Weakness (10/05/24) Physical Therapy Treatment Note PT-OP-A Visit Information Start: 09/24/24 13:53 Freq: Status: Active Protocol: Document 10/05/24 07:27 NM (Rec: 10/05/24 08:15 NM [id number]) Out-Patient Physical Therapy Visit Information Visit Information Visit Type Treatment Note Visit Note KX after 19 visits Visit Start Time 07:30 Visit Stop Time 08:14 Visit Number 3 Evaluation Information Evaluation Date 09/27/24 Precautions Precautions fall risk, slow positional changes PT-OP-B Current Condition Start: 09/24/24 13:53 Freq: Status: Active Protocol: Document 09/27/24 09:00 NM (Rec: 09/27/24 09:48 NM [id number]) Current Condition History of Current Condition Onset Date 6 months ago Current Complaints stiffness, pain, headaches History of Current Condition Pt presents with neck pain. No reports of weakness into hands or arms. He states that his neck is stiff all the time and tight in the back. He reprots that he gets a pain the radiates from the base of L neck to the L head (up), prn to the R side. He reports that he gets hellacious headaches; he has to close his eyes and do neck stretches. He reports most limitations with tilting head. He rides motor cycles, reports that his head moves into ext. Has been occuring for 6 months, no SUNIL . He reports that he has jaw pain with opening, on L side e .g. for a yawn. He reports no muscle spasms in neck but does get them in back. Has taken cloroxozone for his legs. He has had a fall > 1 year ago, when his leg gave out and hit head on freezer in back. He reports that he has numbness/ tingling into B hands, getting EMG in October; R>L. He states fingers 3-5, numbness/ tingling, present some of the time. Occurs when reaching up/over, resting of arm in dependent position (arm rest in chair). He reports depends on how resting his arm. 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 Headaches last usually several minutes to hours unless he takes ibuprofen (1/2 hr); wraps around back of head near crown, occasionally behind eyes. Pt denies nausea, vomiting; he does report dizziness with standing, leaning back to shut eyes; not present when rolls over with bed. Prior Treatments and Tests Cervical spine radiograph 2023: Impression- multilevel degenerative changes of cervical spine, severe at C3- C4. Treatment Goals Patient/Caregiver Goals unhurt and unstiff PT-OP-C Subjective Start: 09/24/24 13:53 Freq: Status: Active Protocol: Document 10/05/24 07:27 NM (Rec: 10/05/24 08:15 NM [id number]) OP-PT Subjective Patient Comments Patient Comments Pt reports 2-3/10 neck pain. He reports after last session felt dragged out, but no increased pain. He has a full day of driving. Yesterday states that he had pain across his midback from spine to ribcage. He also reports this am, has increased restrictions of his L sided neck muscles PT-OP-F Manual Assessment Start: 09/24/24 13:53 Freq: Status: Active Protocol: Document 09/29/24 09:48 NM (Rec: 09/29/24 10:38 NM [id number]) Manual Assessments Soft Tissue Assessment Soft Tissue Mobility Assessment Increased tightness along L > R cervical paraspinals, periscapulars. Joint Mobility Assessment Joint Mobility Assessment Decreased lateral gliding and mobility with PA mobilizations of cervical spine, decreased thoracic mobility. R GHJ clicking, non painful Other Manual Assessments Other Manual Assessments Slight deviation with opening mouth at L TMJ, clicking B (R> L) Cranial nerves: slight R deviation of tongue, no abnormalities with smell, sight, hearing. PT-OP-G Mobility & Gait Start: 09/24/24 13:53 Freq: Status: Active Protocol: Document 09/27/24 09:00 NM (Rec: 09/27/24 11:05 NM [id number]) OP Gait Assessment Gait Gait Assistance Required: Independent Distance (Feet) 150 Assistive Devices Assistive Device None Gait Deviations General Gait Pattern Antalgic,Decreased Stride Length Factors Limiting Gait Function Factors Limiting Gait Function Decreased Strength,Limited Range of Motion,Pain,Poor Balance Comments Gait Comments Decreased stance time on RLE PT-OP-H Neuro Start: 09/24/24 13:53 Freq: Status: Active Protocol: Document 09/29/24 09:48 NM (Rec: 09/29/24 10:38 NM [id number]) Sensation Evaluation Comments Summary Comments BUE equally intact to light touch sensation; mild decrease sharp/dull on C6-8 R>L PT-OP-J Posture/Palpation/Skin Start: 09/24/24 13:53 Freq: Status: Active Protocol: Document 09/27/24 09:00 NM (Rec: 09/27/24 09:48 NM [id number]) Posture Evaluation Position Standing Head/C-Spine Posture C-Spine Flattened,Forward Head L-Spine Posture Decreased Lordosis Scapula Posture (R) Elevated Arm Posture (L) Internally Rotated,(R) Internally Rotated Pelvis Posture Posterior Tilted Palpation Assessment Location cervical spine Palpation Findings Soft Tissue Tightness,Muscle Guarding,Tenderness Palpation Details Tenderness along mid-cervical spine at midline spinous processes, none laterally or at upper cervical spine Tightness along L sided paraspinals > R sided, traps, levator scapula, scalenes, SCM , post cuff, rhomboids, lat, pecs PT-OP-K Range of Motion Start: 09/24/24 13:53 Freq: Status: Active Protocol: Document 09/27/24 09:00 NM (Rec: 09/27/24 09:48 NM [id number]) Cervical Spine Range of Motion Cervical Spine Active Degrees Flexion 48 Extension 25 Rotation Left 50 Rotation Right 55 Lateral Flexion Left 15 Lateral Flexion Right 15 Comments pain on R w/ flex; B LF PT-OP-L Special Tests Start: 09/24/24 13:53 Freq: Status: Active Protocol: Document 09/29/24 09:48 NM (Rec: 09/29/24 10:38 NM [id number]) Special Tests Cervical Spine Special Tests Vertebral a. screen Test Results BP 137/75 mmHg, no symptoms w/ positional testing Comments heart/carotid ausc/palp WFL; cranial n intact Upper Limb Tension Test Test Results + Comments R median, ulnar; L ulnar, radial PT-OP-M Strength Start: 09/24/24 13:53 Freq: Status: Active Protocol: Document 09/27/24 09:00 NM (Rec: 09/27/24 11:05 NM [id number]) Cervical Spine Strength Cervical Spine Manual Muscle Testing Flexion (C1-2) 4 Good Extension 4 Good Rotation Left 4 Good Rotation Right 4 Good Lateral Flexion Left (C3) 4 Good Lateral Flexion Right (C3) 4 Good Shoulder Strength Shoulder Manual Muscle Testing Right Flexion 4 Good Abduction (C5) 4 Good Left Flexion 4 Good Abduction (C5) 4 Good Elbow/Forearm Strength Elbow and Forearm Manual Muscle Testing Right Flexion (C6) 4 Good Extension (C7) 4 Good Left Flexion (C6) 4 Good Extension (C7) 4 Good Wrist Strength Wrist Manual Muscle Testing Right Flexion (C7) 4 Good Extension (C6) 4 Good Comments Finger abd/thumb ext and add intact 4/5 Left Flexion (C7) 4 Good Extension (C6) 4 Good Comments Finger abd/thumb ext and add intact 4/5 PT-OP-Q Treatments Start: 09/24/24 13:53 Freq: Status: Active Protocol: Document 10/05/24 07:27 NM (Rec: 10/05/24 08:15 NM [id number]) Therapeutic Exercises Supine Exercises cervical spine isometrics Supine Exercise Name 1. rotation (not neutral), 2. lateral flexion Side bilateral Equipment Used into PT hand, then pt performing IND Reps/Minutes 10x3 ea Comments cued submaximal contraction Sidelying Exercises open book Sidelying Exercise Name with cervical spine rotation Side bilateral Reps/Minutes 10 ea Comments post manual tx; cued w/i pain free ROM Sitting Exercises scapular isometrics Sitting Exercise Name scapular retraction & depression Side bilateral Reps/Minutes 10 Comments verbal and tactile cues Standing Exercises wall posture Standing Exercise Name scapular activation w/ DNF w/ B ER Side bilateral Reps/Minutes 15 Manual Therapy Treatment Consent Patient gave verbal consent for manual Yes treatment Soft Tissue Mobilization chest/trunk Body Location pec, LS, traps, rhomboids, periscapulars Mobilization Type Rolling,Sustained Pressure Intensity/Depth Moderate Body Position Sidelying Comments performed B. Monitored for pain. Increased restrictions B pecs R>L, L periscapulars cervical spine Body Location suboccipitals, paraspinals, SCM, DNF, scalenes Mobilization Type Rolling,Sustained Pressure Intensity/Depth Moderate Body Position Supine Comments Increased restrictions today L >R especially at SCM, trap, paraspinals. No tenderness. Monitored for pain PT-OP-T Assessment and Plan Start: 09/24/24 13:53 Freq: Status: Active Protocol: Document 10/05/24 07:27 NM (Rec: 10/05/24 08:15 NM [id number]) Physical Therapy Assessment Goals Three Impairment NDI 24/100 Fdc Goal (LTG) Pt will decrease NDI <15% impairment in order to demonstrate improve symptom management during ADLs/IADLs and quality of life LTG Duration 10 weeks Two Impairment cervical spine AROM limited Short Term Goal (STG) Pt will improve B cervical lateral flexion > 20 deg in order to improve mobility during dressing STG Duration 6 weeks Fdc Goal (LTG) Pt will improve B cervical rotation to > 65 deg in order to improve visual scanning and compensations due to limited tilt LTG Duration 10 weeks One Impairment not performing HEP Short Term Goal (STG) Pt will be educated on sitting and sleeping ergonomics for postural education and to improve symptom management STG Duration 5 weeks Fdc Goal (LTG) Pt will be IND with HEP in order to maximize progression with PT and transition to maintenance program upon discharge from PT LTG Duration 10 weeks Assessment Summary Assessment Pt has increased muscular restrictions of cervical paraspinals and periscapulars today, improved with manual treatment but not eliminated. Initiated cervical isometrics and wall posture for pain management and more efficient posture during standing ADLs. Pt continues to demo more forward head positioning, needs cueing for scapular activation and deep neck flexor activation. Pt reports tightness following isometrics , but no increased pain. Has 55 deg R and L cervical spine rotation. Pt would continue to benefit from skilled PT for progressive flexibility and gentle strengthening to improve symptom management and postural control/ergonomics for improved ADL tolerance. Physical Therapy Plan Frequency and Duration Frequency of Treatment 2x/Week Duration of treatment (weeks) 10 Plan of Care Start Date 09/27/24 Plan of Care End Date 12/10/24 Therapeutic Interventions Therapeutic Interventions Canalithic Repositioning,Gait Training,Home Exercise Program ,Joint Mobilizations,Manual Therapy,Neuromuscular Re- education,Orthotic/Prosthetic Management,Patient/Caregiver Education,Self-Care/Home Management,Sensory Integration ,Soft Tissue Mobilization, Taping,Therapeutic Activities, Therapeutic Exercises Modalities Cold Pack/Ice Massage,Electric Stimulation,Hot Packs, Ultrasound Other Therapeutic Interventions TMD, cervicogenic dizziness trigger point treatment Next Visit Focus/Plan Next Note Type Treatment Note Next Visit Plan Review piyush. and HEP if needed . progress wall posture, nerve glides prn, periscap activation once appropriate on wall. edu on sitting isometric open books, scap activation. Review HEP; CS isometrics, self STM teach, scapular mobility and pec stretch Manual: cervical spine, periscapulars, SOR- trial seated
--- NOTE | 2024-10-08 08:16 | PT.OTN ---
Current Diagnoses Stiffness of other specified joint, not elsewhere classified (10/08/24) Radiculopathy, cervical region (10/08/24) Cervicalgia (10/08/24) Other lack of coordination (10/08/24) Weakness (10/08/24) Physical Therapy Treatment Note PT-OP-A Visit Information Start: 09/24/24 13:53 Freq: Status: Active Protocol: Document 10/08/24 07:33 NM (Rec: 10/08/24 08:16 NM [id number]) Out-Patient Physical Therapy Visit Information Visit Information Visit Type Treatment Note Visit Note KX after 19 visits Visit Start Time 07:34 Visit Stop Time 08:15 Visit Number 4 Evaluation Information Evaluation Date 09/27/24 Precautions Precautions fall risk, slow positional changes PT-OP-B Current Condition Start: 09/24/24 13:53 Freq: Status: Active Protocol: Document 09/27/24 09:00 NM (Rec: 09/27/24 09:48 NM [id number]) Current Condition History of Current Condition Onset Date 6 months ago Current Complaints stiffness, pain, headaches History of Current Condition Pt presents with neck pain. No reports of weakness into hands or arms. He states that his neck is stiff all the time and tight in the back. He reprots that he gets a pain the radiates from the base of L neck to the L head (up), prn to the R side. He reports that he gets hellacious headaches; he has to close his eyes and do neck stretches. He reports most limitations with tilting head. He rides motor cycles, reports that his head moves into ext. Has been occuring for 6 months, no SUNIL . He reports that he has jaw pain with opening, on L side e .g. for a yawn. He reports no muscle spasms in neck but does get them in back. Has taken cloroxozone for his legs. He has had a fall > 1 year ago, when his leg gave out and hit head on freezer in back. He reports that he has numbness/ tingling into B hands, getting EMG in October; R>L. He states fingers 3-5, numbness/ tingling, present some of the time. Occurs when reaching up/over, resting of arm in dependent position (arm rest in chair). He reports depends on how resting his arm. 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 Headaches last usually several minutes to hours unless he takes ibuprofen (1/2 hr); wraps around back of head near crown, occasionally behind eyes. Pt denies nausea, vomiting; he does report dizziness with standing, leaning back to shut eyes; not present when rolls over with bed. Prior Treatments and Tests Cervical spine radiograph 2023: Impression- multilevel degenerative changes of cervical spine, severe at C3- C4. Treatment Goals Patient/Caregiver Goals unhurt and unstiff PT-OP-C Subjective Start: 09/24/24 13:53 Freq: Status: Active Protocol: Document 10/08/24 07:33 NM (Rec: 10/08/24 08:16 NM [id number]) OP-PT Subjective Patient Comments Patient Comments Pt reports that he had 3 bouts of shooting neck pain L side, able to help by supporting his head. Pt reports 2/10 pain in neck. PT-OP-F Manual Assessment Start: 09/24/24 13:53 Freq: Status: Active Protocol: Document 09/29/24 09:48 NM (Rec: 09/29/24 10:38 NM [id number]) Manual Assessments Soft Tissue Assessment Soft Tissue Mobility Assessment Increased tightness along L > R cervical paraspinals, periscapulars. Joint Mobility Assessment Joint Mobility Assessment Decreased lateral gliding and mobility with PA mobilizations of cervical spine, decreased thoracic mobility. R GHJ clicking, non painful Other Manual Assessments Other Manual Assessments Slight deviation with opening mouth at L TMJ, clicking B (R> L) Cranial nerves: slight R deviation of tongue, no abnormalities with smell, sight, hearing. PT-OP-G Mobility & Gait Start: 09/24/24 13:53 Freq: Status: Active Protocol: Document 09/27/24 09:00 NM (Rec: 09/27/24 11:05 NM [id number]) OP Gait Assessment Gait Gait Assistance Required: Independent Distance (Feet) 150 Assistive Devices Assistive Device None Gait Deviations General Gait Pattern Antalgic,Decreased Stride Length Factors Limiting Gait Function Factors Limiting Gait Function Decreased Strength,Limited Range of Motion,Pain,Poor Balance Comments Gait Comments Decreased stance time on RLE PT-OP-H Neuro Start: 09/24/24 13:53 Freq: Status: Active Protocol: Document 09/29/24 09:48 NM (Rec: 09/29/24 10:38 NM [id number]) Sensation Evaluation Comments Summary Comments BUE equally intact to light touch sensation; mild decrease sharp/dull on C6-8 R>L PT-OP-J Posture/Palpation/Skin Start: 09/24/24 13:53 Freq: Status: Active Protocol: Document 09/27/24 09:00 NM (Rec: 09/27/24 09:48 NM [id number]) Posture Evaluation Position Standing Head/C-Spine Posture C-Spine Flattened,Forward Head L-Spine Posture Decreased Lordosis Scapula Posture (R) Elevated Arm Posture (L) Internally Rotated,(R) Internally Rotated Pelvis Posture Posterior Tilted Palpation Assessment Location cervical spine Palpation Findings Soft Tissue Tightness,Muscle Guarding,Tenderness Palpation Details Tenderness along mid-cervical spine at midline spinous processes, none laterally or at upper cervical spine Tightness along L sided paraspinals > R sided, traps, levator scapula, scalenes, SCM , post cuff, rhomboids, lat, pecs PT-OP-K Range of Motion Start: 09/24/24 13:53 Freq: Status: Active Protocol: Document 09/27/24 09:00 NM (Rec: 09/27/24 09:48 NM [id number]) Cervical Spine Range of Motion Cervical Spine Active Degrees Flexion 48 Extension 25 Rotation Left 50 Rotation Right 55 Lateral Flexion Left 15 Lateral Flexion Right 15 Comments pain on R w/ flex; B LF PT-OP-L Special Tests Start: 09/24/24 13:53 Freq: Status: Active Protocol: Document 09/29/24 09:48 NM (Rec: 09/29/24 10:38 NM [id number]) Special Tests Cervical Spine Special Tests Vertebral a. screen Test Results BP 137/75 mmHg, no symptoms w/ positional testing Comments heart/carotid ausc/palp WFL; cranial n intact Upper Limb Tension Test Test Results + Comments R median, ulnar; L ulnar, radial PT-OP-M Strength Start: 09/24/24 13:53 Freq: Status: Active Protocol: Document 09/27/24 09:00 NM (Rec: 09/27/24 11:05 NM [id number]) Cervical Spine Strength Cervical Spine Manual Muscle Testing Flexion (C1-2) 4 Good Extension 4 Good Rotation Left 4 Good Rotation Right 4 Good Lateral Flexion Left (C3) 4 Good Lateral Flexion Right (C3) 4 Good Shoulder Strength Shoulder Manual Muscle Testing Right Flexion 4 Good Abduction (C5) 4 Good Left Flexion 4 Good Abduction (C5) 4 Good Elbow/Forearm Strength Elbow and Forearm Manual Muscle Testing Right Flexion (C6) 4 Good Extension (C7) 4 Good Left Flexion (C6) 4 Good Extension (C7) 4 Good Wrist Strength Wrist Manual Muscle Testing Right Flexion (C7) 4 Good Extension (C6) 4 Good Comments Finger abd/thumb ext and add intact 4/5 Left Flexion (C7) 4 Good Extension (C6) 4 Good Comments Finger abd/thumb ext and add intact 4/5 PT-OP-Q Treatments Start: 09/24/24 13:53 Freq: Status: Active Protocol: Document 10/08/24 07:33 NM (Rec: 10/08/24 08:16 NM [id number]) Therapeutic Exercises Supine Exercises cervical spine isometrics Supine Exercise Name see sitting Sidelying Exercises scapular clock Sidelying Exercise Name slight elevation > depression+ adduction Side bilateral Reps/Minutes 10 ea Comments post mobilization open book Sidelying Exercise Name with cervical spine rotation- HEP review Side bilateral Reps/Minutes 10 ea Comments post manual tx; cued w/i pain free ROM Sitting Exercises cervical spine stretches Sitting Exercise Name trialed in PT: 1. trap, 2. SCM , 3. LS Side left Equipment Used w/ tension- hand holding chair Reps/Minutes 30 ea Comments stretching L side only cervical spine isometrics Sitting Exercise Name flex, ext, lateral flex, rotation Side bilateral Reps/Minutes 10x2 ea, 5x2 LF/rot d/t time Comments cued submax; into PT hand then pt hand Manual Therapy Treatment Consent Patient gave verbal consent for manual Yes treatment Soft Tissue Mobilization chest/trunk Body Location pec, LS, traps, rhomboids, periscapulars Mobilization Type Rolling,Sustained Pressure Intensity/Depth Moderate Body Position Sidelying Comments performed B. Monitored for pain. Increased restrictions B pecs R>L, L periscapulars especially at UT cervical spine Body Location suboccipitals, paraspinals, SCM, DNF, scalenes Mobilization Type Rolling,Sustained Pressure Intensity/Depth Moderate Body Position Supine,sit Comments Increased restrictions today L >R especially at trap, paraspinals. No tenderness. Monitored for pain starting w/ R rot 45 deg, L rot 50 deg end of session 55 deg R rot, L rot 55 deg Joint Mobilizations cervical spine Joint C3-5 Direction B lateral glides Grade III Body Position Supine Reps/Duration 2x10 ea Comments Monitored for pain. Less mobility L>R scapulothoracic Joint B scapula Direction depression and adduction Grade III Body Position Sidelying Reps/Duration 10 ea Comments Monitored for pain. Stiffness improves with reps, followed by active functional movement PT-OP-T Assessment and Plan Start: 09/24/24 13:53 Freq: Status: Active Protocol: Document 10/08/24 07:33 NM (Rec: 10/08/24 08:16 NM [id number]) Physical Therapy Assessment Goals Three Impairment NDI 24/100 Cargo Worker Goal (LTG) Pt will decrease NDI <15% impairment in order to demonstrate improve symptom management during ADLs/IADLs and quality of life LTG Duration 10 weeks Two Impairment cervical spine AROM limited Short Term Goal (STG) Pt will improve B cervical lateral flexion > 20 deg in order to improve mobility during dressing STG Duration 6 weeks Cargo Worker Goal (LTG) Pt will improve B cervical rotation to > 65 deg in order to improve visual scanning and compensations due to limited tilt LTG Duration 10 weeks One Impairment not performing HEP Short Term Goal (STG) Pt will be educated on sitting and sleeping ergonomics for postural education and to improve symptom management STG Duration 5 weeks Cargo Worker Goal (LTG) Pt will be IND with HEP in order to maximize progression with PT and transition to maintenance program upon discharge from PT LTG Duration 10 weeks Assessment Summary Assessment Continues to have restrictions of L cervical paraspinals and periscapulars, reduced but not resolved with soft tissue mobilization. Initiated cervical spine and scapular mobilizations to improve mobility for visual scanning and muscle length. Good tolerance for progression to sitting isometrics; pain free. Trialed gentle stretching of L cervical spine muscles only; pt limited by joint mobility and soft tissue restrictions, but able to perform without increase in pain levels. Demos improvement in B cervical spine rotation ROM at end of session. Pt would continue to benefit from skilled PT for progressive flexibility and strengthening in order to improve symptom management. Physical Therapy Plan Frequency and Duration Frequency of Treatment 2x/Week Duration of treatment (weeks) 10 Plan of Care Start Date 09/27/24 Plan of Care End Date 12/10/24 Therapeutic Interventions Therapeutic Interventions Canalithic Repositioning,Gait Training,Home Exercise Program ,Joint Mobilizations,Manual Therapy,Neuromuscular Re- education,Orthotic/Prosthetic Management,Patient/Caregiver Education,Self-Care/Home Management,Sensory Integration ,Soft Tissue Mobilization, Taping,Therapeutic Activities, Therapeutic Exercises Modalities Cold Pack/Ice Massage,Electric Stimulation,Hot Packs, Ultrasound Other Therapeutic Interventions TMD, cervicogenic dizziness trigger point treatment Next Visit Focus/Plan Next Note Type Treatment Note Next Visit Plan Review seated piyush. and HEP if needed. progress wall posture , nerve glides prn, periscap activation once appropriate on wall > rows/low rows w/ band. open books, thoracic ext in sitting, scap activation. Review HEP; CS isometrics, self STM teach, scapular mobility and pec stretch Manual: cervical spine, periscapulars, SOR- trial seated
--- NOTE | 2024-10-12 17:31 | PT.OTN ---
Current Diagnoses Stiffness of other specified joint, not elsewhere classified (10/12/24) Radiculopathy, cervical region (10/12/24) Cervicalgia (10/12/24) Other lack of coordination (10/12/24) Weakness (10/12/24) Physical Therapy Treatment Note PT-OP-A Visit Information Start: 09/24/24 13:53 Freq: Status: Active Protocol: Document 10/12/24 10:44 SW (Rec: 10/12/24 11:34 SW [id number]) Out-Patient Physical Therapy Visit Information Visit Information Visit Type Treatment Note Visit Note KX after 19 visits Visit Start Time 10:45 Visit Stop Time 11:25 Visit Number 5 Number of DIGITAL SPECIALIST Visits 1 PT-OP-B Current Condition Start: 09/24/24 13:53 Freq: Status: Active Protocol: Document 09/27/24 09:00 NM (Rec: 09/27/24 09:48 NM [id number]) Current Condition History of Current Condition Onset Date 6 months ago Current Complaints stiffness, pain, headaches History of Current Condition Pt presents with neck pain. No reports of weakness into hands or arms. He states that his neck is stiff all the time and tight in the back. He reprots that he gets a pain the radiates from the base of L neck to the L head (up), prn to the R side. He reports that he gets hellacious headaches; he has to close his eyes and do neck stretches. He reports most limitations with tilting head. He rides motor cycles, reports that his head moves into ext. Has been occuring for 6 months, no SUNIL . He reports that he has jaw pain with opening, on L side e .g. for a yawn. He reports no muscle spasms in neck but does get them in back. Has taken cloroxozone for his legs. He has had a fall > 1 year ago, when his leg gave out and hit head on freezer in back. He reports that he has numbness/ tingling into B hands, getting EMG in October; R>L. He states fingers 3-5, numbness/ tingling, present some of the time. Occurs when reaching up/over, resting of arm in dependent position (arm rest in chair). He reports depends on how resting his arm. 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 Headaches last usually several minutes to hours unless he takes ibuprofen (1/2 hr); wraps around back of head near crown, occasionally behind eyes. Pt denies nausea, vomiting; he does report dizziness with standing, leaning back to shut eyes; not present when rolls over with bed. Prior Treatments and Tests Cervical spine radiograph 2023: Impression- multilevel degenerative changes of cervical spine, severe at C3- C4. Treatment Goals Patient/Caregiver Goals unhurt and unstiff PT-OP-C Subjective Start: 09/24/24 13:53 Freq: Status: Active Protocol: Document 10/12/24 10:44 SW (Rec: 10/12/24 11:34 SW [id number]) OP-PT Subjective Patient Comments Patient Comments Pt reports was out splitting rounds and paid for it yesterday, used acetametaphine to assist with discomfort. Pain level around a 2/10. PT-OP-F Manual Assessment Start: 09/24/24 13:53 Freq: Status: Active Protocol: Document 09/29/24 09:48 NM (Rec: 09/29/24 10:38 NM [id number]) Manual Assessments Soft Tissue Assessment Soft Tissue Mobility Assessment Increased tightness along L > R cervical paraspinals, periscapulars. Joint Mobility Assessment Joint Mobility Assessment Decreased lateral gliding and mobility with PA mobilizations of cervical spine, decreased thoracic mobility. R GHJ clicking, non painful Other Manual Assessments Other Manual Assessments Slight deviation with opening mouth at L TMJ, clicking B (R> L) Cranial nerves: slight R deviation of tongue, no abnormalities with smell, sight, hearing. PT-OP-G Mobility & Gait Start: 09/24/24 13:53 Freq: Status: Active Protocol: Document 09/27/24 09:00 NM (Rec: 09/27/24 11:05 NM [id number]) OP Gait Assessment Gait Gait Assistance Required: Independent Distance (Feet) 150 Assistive Devices Assistive Device None Gait Deviations General Gait Pattern Antalgic,Decreased Stride Length Factors Limiting Gait Function Factors Limiting Gait Function Decreased Strength,Limited Range of Motion,Pain,Poor Balance Comments Gait Comments Decreased stance time on RLE PT-OP-H Neuro Start: 09/24/24 13:53 Freq: Status: Active Protocol: Document 09/29/24 09:48 NM (Rec: 09/29/24 10:38 NM [id number]) Sensation Evaluation Comments Summary Comments BUE equally intact to light touch sensation; mild decrease sharp/dull on C6-8 R>L PT-OP-J Posture/Palpation/Skin Start: 09/24/24 13:53 Freq: Status: Active Protocol: Document 09/27/24 09:00 NM (Rec: 09/27/24 09:48 NM [id number]) Posture Evaluation Position Standing Head/C-Spine Posture C-Spine Flattened,Forward Head L-Spine Posture Decreased Lordosis Scapula Posture (R) Elevated Arm Posture (L) Internally Rotated,(R) Internally Rotated Pelvis Posture Posterior Tilted Palpation Assessment Location cervical spine Palpation Findings Soft Tissue Tightness,Muscle Guarding,Tenderness Palpation Details Tenderness along mid-cervical spine at midline spinous processes, none laterally or at upper cervical spine Tightness along L sided paraspinals > R sided, traps, levator scapula, scalenes, SCM , post cuff, rhomboids, lat, pecs PT-OP-K Range of Motion Start: 09/24/24 13:53 Freq: Status: Active Protocol: Document 09/27/24 09:00 NM (Rec: 09/27/24 09:48 NM [id number]) Cervical Spine Range of Motion Cervical Spine Active Degrees Flexion 48 Extension 25 Rotation Left 50 Rotation Right 55 Lateral Flexion Left 15 Lateral Flexion Right 15 Comments pain on R w/ flex; B LF PT-OP-L Special Tests Start: 09/24/24 13:53 Freq: Status: Active Protocol: Document 09/29/24 09:48 NM (Rec: 09/29/24 10:38 NM [id number]) Special Tests Cervical Spine Special Tests Vertebral a. screen Test Results BP 137/75 mmHg, no symptoms w/ positional testing Comments heart/carotid ausc/palp WFL; cranial n intact Upper Limb Tension Test Test Results + Comments R median, ulnar; L ulnar, radial PT-OP-M Strength Start: 09/24/24 13:53 Freq: Status: Active Protocol: Document 09/27/24 09:00 NM (Rec: 09/27/24 11:05 NM [id number]) Cervical Spine Strength Cervical Spine Manual Muscle Testing Flexion (C1-2) 4 Good Extension 4 Good Rotation Left 4 Good Rotation Right 4 Good Lateral Flexion Left (C3) 4 Good Lateral Flexion Right (C3) 4 Good Shoulder Strength Shoulder Manual Muscle Testing Right Flexion 4 Good Abduction (C5) 4 Good Left Flexion 4 Good Abduction (C5) 4 Good Elbow/Forearm Strength Elbow and Forearm Manual Muscle Testing Right Flexion (C6) 4 Good Extension (C7) 4 Good Left Flexion (C6) 4 Good Extension (C7) 4 Good Wrist Strength Wrist Manual Muscle Testing Right Flexion (C7) 4 Good Extension (C6) 4 Good Comments Finger abd/thumb ext and add intact 4/5 Left Flexion (C7) 4 Good Extension (C6) 4 Good Comments Finger abd/thumb ext and add intact 4/5 PT-OP-Q Treatments Start: 09/24/24 13:53 Freq: Status: Active Protocol: Document 10/12/24 10:44 (Rec: 10/12/24 11:34 [id number]) Therapeutic Exercises Supine Exercises Scapular Isometric Supine Exercise Name Scapular isometrics- retraction Side bilateral Resistance Isometric hold Reps/Minutes 10 x 3 Comments cues for gentle activation and core activation to prevent spine movement DNF Supine Exercise Name Chin tucks Side bilateral Resistance AROM Reps/Minutes 10x3 hold cervical retraction Supine Exercise Name 1. retraction, 2. w/ rotation Side bilateral Equipment Used pillow behind head for comfort Reps/Minutes 1. 15, 2. 5 ea side Comments verbal and tactile cues for form Sidelying Exercises Scapular isometrics Sidelying Exercise Name see supine Sitting Exercises cervical spine isometrics Sitting Exercise Name flex, ext, lateral flex, rotation Side bilateral Reps/Minutes 10x2 ea Comments cued submax; into pt hand scapular isometrics Sitting Exercise Name scapular retraction & depression Side bilateral Reps/Minutes 10 Comments verbal and tactile cues Manual Therapy Treatment Consent Patient gave verbal consent for manual Yes treatment Soft Tissue Mobilization cervical spine Body Location suboccipitals, paraspinals, SCM, DNF, scalenes Mobilization Type Rolling,Sustained Pressure, Trigger Point Release Intensity/Depth Moderate Body Position Supine, sidelying Comments focused on L>R this session, trap and paraspinals to further decrease restrictions, good pt tolerance, some palpable tenderness in L trap Joint Mobilizations cervical spine Joint C3-5 Direction B lateral glides Grade III Body Position Supine Reps/Duration 2x10 ea Comments Monitored for pain, minimal discomfort in L C4 scapulothoracic Joint B scapula Direction depression and adduction Grade III Body Position Sidelying Reps/Duration 10 ea Comments Monitored for pain. Stiffness improves with reps, followed by active functional movement PT-OP-T Assessment and Plan Start: 09/24/24 13:53 Freq: Status: Active Protocol: Document 10/12/24 10:44 (Rec: 10/12/24 11:34 [id number]) Physical Therapy Assessment Goals Three Impairment NDI 24/100 Regional Climate Change Analyst Goal (LTG) Pt will decrease NDI <15% impairment in order to demonstrate improve symptom management during ADLs/IADLs and quality of life LTG Duration 10 weeks Two Impairment cervical spine AROM limited Short Term Goal (STG) Pt will improve B cervical lateral flexion > 20 deg in order to improve mobility during dressing STG Duration 6 weeks Shelter Goal (LTG) Pt will improve B cervical rotation to > 65 deg in order to improve visual scanning and compensations due to limited tilt LTG Duration 10 weeks One Impairment not performing HEP Short Term Goal (STG) Pt will be educated on sitting and sleeping ergonomics for postural education and to improve symptom management STG Duration 5 weeks Shelter Goal (LTG) Pt will be IND with HEP in order to maximize progression with PT and transition to maintenance program upon discharge from PT LTG Duration 10 weeks Assessment Summary Assessment Session focused on manual therapy today to address pt discomfort and restrictions in periscapular/shoulder/ cervical muscles and fascia, to improve mobility and decrease pain. Pt plans to get a raquetball or tennis ball soon, plan to followup next session and instruct patient on self mobilization techniques for carryover of soft tissue mobilization at home. Increased restriction in L>R posterior shoulder mms, plan to assess next session and continue focus on release. No reproduction of numbness/ tingling this session, pt tolerated well. Physical Therapy Plan Frequency and Duration Frequency of Treatment 2x/Week Duration of treatment (weeks) 10 Plan of Care Start Date 09/27/24 Plan of Care End Date 12/10/24 Therapeutic Interventions Therapeutic Interventions Canalithic Repositioning,Gait Training,Home Exercise Program ,Joint Mobilizations,Manual Therapy,Neuromuscular Re- education,Orthotic/Prosthetic Management,Patient/Caregiver Education,Self-Care/Home Management,Sensory Integration ,Soft Tissue Mobilization, Taping,Therapeutic Activities, Therapeutic Exercises Modalities Cold Pack/Ice Massage,Electric Stimulation,Hot Packs, Ultrasound Other Therapeutic Interventions TMD, cervicogenic dizziness trigger point treatment Next Visit Focus/Plan Next Note Type Treatment Note Next Visit Plan Trial modalities prn next session. Review seated piyush. progress wall posture, nerve glides prn, periscap activation once appropriate on wall > rows/low rows w/ band. open books, thoracic ext in sitting, scap activation. Review HEP; CS isometrics, self STM teach, scapular mobility and pec stretch Manual: cervical spine, periscapulars, SOR- trial seated
--- NOTE | 2024-10-15 09:10 | PT.OTN ---
Current Diagnoses Stiffness of other specified joint, not elsewhere classified (10/15/24) Radiculopathy, cervical region (10/15/24) Cervicalgia (10/15/24) Other lack of coordination (10/15/24) Weakness (10/15/24) Physical Therapy Treatment Note PT-OP-A Visit Information Start: 09/24/24 13:53 Freq: Status: Active Protocol: Document 10/15/24 08:26 SP (Rec: 10/15/24 09:11 SP [id number]) Out-Patient Physical Therapy Visit Information Visit Information Visit Type Treatment Note Visit Note KX after 19 visits Visit Start Time 08:26 Visit Stop Time 09:10 Visit Number 6 Number of GENERAL HANDLING SUPERVISOR Visits 2 Evaluation Information Evaluation Date 09/27/24 Precautions Precautions fall risk, slow positional changes PT-OP-B Current Condition Start: 09/24/24 13:53 Freq: Status: Active Protocol: Document 09/27/24 09:00 NM (Rec: 09/27/24 09:48 NM [id number]) Current Condition History of Current Condition Onset Date 6 months ago Current Complaints stiffness, pain, headaches History of Current Condition Pt presents with neck pain. No reports of weakness into hands or arms. He states that his neck is stiff all the time and tight in the back. He reprots that he gets a pain the radiates from the base of L neck to the L head (up), prn to the R side. He reports that he gets hellacious headaches; he has to close his eyes and do neck stretches. He reports most limitations with tilting head. He rides motor cycles, reports that his head moves into ext. Has been occuring for 6 months, no SUNIL . He reports that he has jaw pain with opening, on L side e .g. for a yawn. He reports no muscle spasms in neck but does get them in back. Has taken cloroxozone for his legs. He has had a fall > 1 year ago, when his leg gave out and hit head on freezer in back. He reports that he has numbness/ tingling into B hands, getting EMG in October; R>L. He states fingers 3-5, numbness/ tingling, present some of the time. Occurs when reaching up/over, resting of arm in dependent position (arm rest in chair). He reports depends on how resting his arm. 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 Headaches last usually several minutes to hours unless he takes ibuprofen (1/2 hr); wraps around back of head near crown, occasionally behind eyes. Pt denies nausea, vomiting; he does report dizziness with standing, leaning back to shut eyes; not present when rolls over with bed. Prior Treatments and Tests Cervical spine radiograph 2023: Impression- multilevel degenerative changes of cervical spine, severe at C3- C4. Treatment Goals Patient/Caregiver Goals unhurt and unstiff PT-OP-C Subjective Start: 09/24/24 13:53 Freq: Status: Active Protocol: Document 10/15/24 08:26 SP (Rec: 10/15/24 09:11 SP [id number]) OP-PT Subjective Patient Comments Patient Comments Pt reports did feel better after last tx. had to drive to [place] last night and increased tightness. Wakes up 2-3 times a night and no reasoning. PT-OP-F Manual Assessment Start: 09/24/24 13:53 Freq: Status: Active Protocol: Document 09/29/24 09:48 NM (Rec: 09/29/24 10:38 NM [id number]) Manual Assessments Soft Tissue Assessment Soft Tissue Mobility Assessment Increased tightness along L > R cervical paraspinals, periscapulars. Joint Mobility Assessment Joint Mobility Assessment Decreased lateral gliding and mobility with PA mobilizations of cervical spine, decreased thoracic mobility. R GHJ clicking, non painful Other Manual Assessments Other Manual Assessments Slight deviation with opening mouth at L TMJ, clicking B (R> L) Cranial nerves: slight R deviation of tongue, no abnormalities with smell, sight, hearing. PT-OP-G Mobility & Gait Start: 09/24/24 13:53 Freq: Status: Active Protocol: Document 09/27/24 09:00 NM (Rec: 09/27/24 11:05 NM [id number]) OP Gait Assessment Gait Gait Assistance Required: Independent Distance (Feet) 150 Assistive Devices Assistive Device None Gait Deviations General Gait Pattern Antalgic,Decreased Stride Length Factors Limiting Gait Function Factors Limiting Gait Function Decreased Strength,Limited Range of Motion,Pain,Poor Balance Comments Gait Comments Decreased stance time on RLE PT-OP-H Neuro Start: 09/24/24 13:53 Freq: Status: Active Protocol: Document 09/29/24 09:48 NM (Rec: 09/29/24 10:38 NM [id number]) Sensation Evaluation Comments Summary Comments BUE equally intact to light touch sensation; mild decrease sharp/dull on C6-8 R>L PT-OP-J Posture/Palpation/Skin Start: 09/24/24 13:53 Freq: Status: Active Protocol: Document 09/27/24 09:00 NM (Rec: 09/27/24 09:48 NM [id number]) Posture Evaluation Position Standing Head/C-Spine Posture C-Spine Flattened,Forward Head L-Spine Posture Decreased Lordosis Scapula Posture (R) Elevated Arm Posture (L) Internally Rotated,(R) Internally Rotated Pelvis Posture Posterior Tilted Palpation Assessment Location cervical spine Palpation Findings Soft Tissue Tightness,Muscle Guarding,Tenderness Palpation Details Tenderness along mid-cervical spine at midline spinous processes, none laterally or at upper cervical spine Tightness along L sided paraspinals > R sided, traps, levator scapula, scalenes, SCM , post cuff, rhomboids, lat, pecs PT-OP-K Range of Motion Start: 09/24/24 13:53 Freq: Status: Active Protocol: Document 09/27/24 09:00 NM (Rec: 09/27/24 09:48 NM [id number]) Cervical Spine Range of Motion Cervical Spine Active Degrees Flexion 48 Extension 25 Rotation Left 50 Rotation Right 55 Lateral Flexion Left 15 Lateral Flexion Right 15 Comments pain on R w/ flex; B LF PT-OP-L Special Tests Start: 09/24/24 13:53 Freq: Status: Active Protocol: Document 09/29/24 09:48 NM (Rec: 09/29/24 10:38 NM [id number]) Special Tests Cervical Spine Special Tests Vertebral a. screen Test Results BP 137/75 mmHg, no symptoms w/ positional testing Comments heart/carotid ausc/palp WFL; cranial n intact Upper Limb Tension Test Test Results + Comments R median, ulnar; L ulnar, radial PT-OP-M Strength Start: 09/24/24 13:53 Freq: Status: Active Protocol: Document 09/27/24 09:00 NM (Rec: 09/27/24 11:05 NM [id number]) Cervical Spine Strength Cervical Spine Manual Muscle Testing Flexion (C1-2) 4 Good Extension 4 Good Rotation Left 4 Good Rotation Right 4 Good Lateral Flexion Left (C3) 4 Good Lateral Flexion Right (C3) 4 Good Shoulder Strength Shoulder Manual Muscle Testing Right Flexion 4 Good Abduction (C5) 4 Good Left Flexion 4 Good Abduction (C5) 4 Good Elbow/Forearm Strength Elbow and Forearm Manual Muscle Testing Right Flexion (C6) 4 Good Extension (C7) 4 Good Left Flexion (C6) 4 Good Extension (C7) 4 Good Wrist Strength Wrist Manual Muscle Testing Right Flexion (C7) 4 Good Extension (C6) 4 Good Comments Finger abd/thumb ext and add intact 4/5 Left Flexion (C7) 4 Good Extension (C6) 4 Good Comments Finger abd/thumb ext and add intact 4/5 PT-OP-Q Treatments Start: 09/24/24 13:53 Freq: Status: Active Protocol: Document 10/15/24 08:26 SP (Rec: 10/15/24 09:11 SP [id number]) Therapeutic Exercises Sidelying Exercises open book Sidelying Exercise Name with cervical spine rotation- HEP review Side bilateral Reps/Minutes 8 reps, then 3 breath hold pec stretch /c rib mob Comments cued arm and scapular ROM into HABD before head turn- segmental mobiltiy Sitting Exercises cervical spine stretches Sitting Exercise Name Reviewed in PT: 1. trap, 2. SCM, 3. LS Side left Equipment Used w/ tension- hand holding chair Reps/Minutes 30 ea Comments stretching L side only Standing Exercises Extension Standing Exercise Name added to HEP: CS rotation Side bilateral Resistance TB #2 Reps/Minutes x10 reps, 2 head turn Comments cued elbow ext, scap retraction, maintain CS retracttion /c HT wall posture Standing Exercise Name scapular activation w/ DNF w/ B arm as side open ER Side bilateral Equipment Used towel roll behind Reps/Minutes 5 SH x10 Comments cued Manual Therapy Treatment Consent Patient gave verbal consent for manual Yes treatment Soft Tissue Mobilization chest/trunk Body Location pec, LS, traps, rhomboids, periscapulars Mobilization Type Rolling,Sustained Pressure Intensity/Depth Moderate Body Position Sidelying Comments performed B. Monitored for pain. Increased restrictions B pecs R>L, L periscapulars especially at UT cervical spine Body Location suboccipitals, paraspinals, SCM, DNF, scalenes Mobilization Type Rolling,Sustained Pressure, Trigger Point Release Intensity/Depth Moderate Body Position Supine, sidelying Comments focused on L>R this session, trap and paraspinals to further decrease restrictions, good pt tolerance, some palpable tenderness in L trap Joint Mobilizations cervical spine Joint C3-5 Direction B lateral glides Grade II Body Position Supine Reps/Duration 2x10 ea Comments Monitored for pain, scapulothoracic Joint B scapula Direction depression and adduction Grade III Body Position Sidelying Reps/Duration 10 ea Comments Monitored for pain. Stiffness improves with reps, followed by active functional movement Self-Care/Home Management Treatment Education Patient Education Body Mechanics,Pain Management ,Posture,Safety Other Education Ed use pillows between BLEs and behind back for spinal alignment side sleeping. Postural alignment use wall feedback, awareness carryover into mobility. PT-OP-T Assessment and Plan Start: 09/24/24 13:53 Freq: Status: Active Protocol: Document 10/15/24 08:26 SP (Rec: 10/15/24 09:11 SP [id number]) Physical Therapy Assessment Goals Three Impairment NDI 24/100 Shelter Goal (LTG) Pt will decrease NDI <15% impairment in order to demonstrate improve symptom management during ADLs/IADLs and quality of life LTG Duration 10 weeks Two Impairment cervical spine AROM limited Short Term Goal (STG) Pt will improve B cervical lateral flexion > 20 deg in order to improve mobility during dressing STG Duration 6 weeks Coil Cutter Goal (LTG) Pt will improve B cervical rotation to > 65 deg in order to improve visual scanning and compensations due to limited tilt LTG Duration 10 weeks One Impairment not performing HEP Short Term Goal (STG) Pt will be educated on sitting and sleeping ergonomics for postural education and to improve symptom management STG Duration 5 weeks Shelter Goal (LTG) Pt will be IND with HEP in order to maximize progression with PT and transition to maintenance program upon discharge from PT LTG Duration 10 weeks Assessment Summary Assessment Pt good response to manual and stretches, less tension in neck and able turn head better . Tactile cues for delay head turn and more segmental arm/ scapular then head follow during open book mobility. Pt education on postural alignment sleeping use pillows for neck, back health. Improved LT activation after wall posture and initiated resisted shld ext with CS rotation noted motion better, aware check in CS retraction neutral. Physical Therapy Plan Frequency and Duration Frequency of Treatment 2x/Week Duration of treatment (weeks) 10 Plan of Care Start Date 09/27/24 Plan of Care End Date 12/10/24 Therapeutic Interventions Therapeutic Interventions Canalithic Repositioning,Gait Training,Home Exercise Program ,Joint Mobilizations,Manual Therapy,Neuromuscular Re- education,Orthotic/Prosthetic Management,Patient/Caregiver Education,Self-Care/Home Management,Sensory Integration ,Soft Tissue Mobilization, Taping,Therapeutic Activities, Therapeutic Exercises Modalities Cold Pack/Ice Massage,Electric Stimulation,Hot Packs, Ultrasound Other Therapeutic Interventions TMD, cervicogenic dizziness trigger point treatment Next Visit Focus/Plan Next Note Type Treatment Note Next Visit Plan Next tx: assess progress wall posture and progression periscapular activation use wall then carryover resisted shld ext /c HTs.Trial modalities prn next session. Review seated piyush nerve glides prn, open books, thoracic ext in sitting, scap activation. Review HEP; CS isometrics, self STM teach, scapular mobility and pec stretch Manual: cervical spine, periscapulars, SOR- trial seated
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
--- NOTE | 2024-11-02 13:34 | PT.OTN ---
Current Diagnoses Stiffness of other specified joint, not elsewhere classified (11/02/24) Radiculopathy, cervical region (11/02/24) Cervicalgia (11/02/24) Other lack of coordination (11/02/24) Weakness (11/02/24) Physical Therapy Treatment Note PT-OP-A Visit Information Start: 09/24/24 13:53 Freq: Status: Active Protocol: Document 11/02/24 08:18 [facility] (Rec: 11/02/24 13:03 [facility] [id number]) Out-Patient Physical Therapy Visit Information Visit Information Visit Type Progress Note Visit Note KX after 19 visits Visit Number 9 Number of FRINGE MAKER Visits 0 Precautions Precautions fall risk, slow positional changes PT-OP-B Current Condition Start: 09/24/24 13:53 Freq: Status: Active Protocol: Document 09/27/24 09:00 NM (Rec: 09/27/24 09:48 NM [id number]) Current Condition History of Current Condition Onset Date 6 months ago Current Complaints stiffness, pain, headaches History of Current Condition Pt presents with neck pain. No reports of weakness into hands or arms. He states that his neck is stiff all the time and tight in the back. He reprots that he gets a pain the radiates from the base of L neck to the L head (up), prn to the R side. He reports that he gets hellacious headaches; he has to close his eyes and do neck stretches. He reports most limitations with tilting head. He rides motor cycles, reports that his head moves into ext. Has been occuring for 6 months, no SUNIL . He reports that he has jaw pain with opening, on L side e .g. for a yawn. He reports no muscle spasms in neck but does get them in back. Has taken cloroxozone for his legs. He has had a fall > 1 year ago, when his leg gave out and hit head on freezer in back. He reports that he has numbness/ tingling into B hands, getting EMG in October; R>L. He states fingers 3-5, numbness/ tingling, present some of the time. Occurs when reaching up/over, resting of arm in dependent position (arm rest in chair). He reports depends on how resting his arm. 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 Headaches last usually several minutes to hours unless he takes ibuprofen (1/2 hr); wraps around back of head near crown, occasionally behind eyes. Pt denies nausea, vomiting; he does report dizziness with standing, leaning back to shut eyes; not present when rolls over with bed. Prior Treatments and Tests Cervical spine radiograph 2023: Impression- multilevel degenerative changes of cervical spine, severe at C3- C4. Treatment Goals Patient/Caregiver Goals unhurt and unstiff PT-OP-C Subjective Start: 09/24/24 13:53 Freq: Status: Active Protocol: Document 11/02/24 08:18 LR (Rec: 11/02/24 13:03 [facility] [id number]) OP-PT Subjective Patient Comments Patient Comments Pt reports less episodes of pain since starting PT Patient Reported Progress Improving Patient Questionnaires Neck Disability Index NDI Score 22% PT-OP-F Manual Assessment Start: 09/24/24 13:53 Freq: Status: Active Protocol: Document 09/29/24 09:48 NM (Rec: 09/29/24 10:38 NM [id number]) Manual Assessments Soft Tissue Assessment Soft Tissue Mobility Assessment Increased tightness along L > R cervical paraspinals, periscapulars. Joint Mobility Assessment Joint Mobility Assessment Decreased lateral gliding and mobility with PA mobilizations of cervical spine, decreased thoracic mobility. R GHJ clicking, non painful Other Manual Assessments Other Manual Assessments Slight deviation with opening mouth at L TMJ, clicking B (R> L) Cranial nerves: slight R deviation of tongue, no abnormalities with smell, sight, hearing. PT-OP-G Mobility & Gait Start: 09/24/24 13:53 Freq: Status: Active Protocol: Document 09/27/24 09:00 NM (Rec: 09/27/24 11:05 NM [id number]) OP Gait Assessment Gait Gait Assistance Required: Independent Distance (Feet) 150 Assistive Devices Assistive Device None Gait Deviations General Gait Pattern Antalgic,Decreased Stride Length Factors Limiting Gait Function Factors Limiting Gait Function Decreased Strength,Limited Range of Motion,Pain,Poor Balance Comments Gait Comments Decreased stance time on RLE PT-OP-H Neuro Start: 09/24/24 13:53 Freq: Status: Active Protocol: Document 09/29/24 09:48 NM (Rec: 09/29/24 10:38 NM [id number]) Sensation Evaluation Comments Summary Comments BUE equally intact to light touch sensation; mild decrease sharp/dull on C6-8 R>L PT-OP-J Posture/Palpation/Skin Start: 09/24/24 13:53 Freq: Status: Active Protocol: Document 09/27/24 09:00 NM (Rec: 09/27/24 09:48 NM [id number]) Posture Evaluation Position Standing Head/C-Spine Posture C-Spine Flattened,Forward Head L-Spine Posture Decreased Lordosis Scapula Posture (R) Elevated Arm Posture (L) Internally Rotated,(R) Internally Rotated Pelvis Posture Posterior Tilted Palpation Assessment Location cervical spine Palpation Findings Soft Tissue Tightness,Muscle Guarding,Tenderness Palpation Details Tenderness along mid-cervical spine at midline spinous processes, none laterally or at upper cervical spine Tightness along L sided paraspinals > R sided, traps, levator scapula, scalenes, SCM , post cuff, rhomboids, lat, pecs PT-OP-K Range of Motion Start: 09/24/24 13:53 Freq: Status: Active Protocol: Document 11/02/24 08:18 [facility] (Rec: 11/02/24 13:03 [facility] [id number]) Cervical Spine Range of Motion Cervical Spine Active Degrees Flexion 45 Extension 38 Rotation Left 52 Rotation Right 48 Lateral Flexion Left 16 Lateral Flexion Right 14 Comments pain on R w/ flex; pain R w/R SB, L SB & rot pain L PT-OP-L Special Tests Start: 09/24/24 13:53 Freq: Status: Active Protocol: Document 09/29/24 09:48 NM (Rec: 09/29/24 10:38 NM [id number]) Special Tests Cervical Spine Special Tests Vertebral a. screen Test Results BP 137/75 mmHg, no symptoms w/ positional testing Comments heart/carotid ausc/palp WFL; cranial n intact Upper Limb Tension Test Test Results + Comments R median, ulnar; L ulnar, radial PT-OP-M Strength Start: 09/24/24 13:53 Freq: Status: Active Protocol: Document 09/27/24 09:00 NM (Rec: 09/27/24 11:05 NM [id number]) Cervical Spine Strength Cervical Spine Manual Muscle Testing Flexion (C1-2) 4 Good Extension 4 Good Rotation Left 4 Good Rotation Right 4 Good Lateral Flexion Left (C3) 4 Good Lateral Flexion Right (C3) 4 Good Shoulder Strength Shoulder Manual Muscle Testing Right Flexion 4 Good Abduction (C5) 4 Good Left Flexion 4 Good Abduction (C5) 4 Good Elbow/Forearm Strength Elbow and Forearm Manual Muscle Testing Right Flexion (C6) 4 Good Extension (C7) 4 Good Left Flexion (C6) 4 Good Extension (C7) 4 Good Wrist Strength Wrist Manual Muscle Testing Right Flexion (C7) 4 Good Extension (C6) 4 Good Comments Finger abd/thumb ext and add intact 4/5 Left Flexion (C7) 4 Good Extension (C6) 4 Good Comments Finger abd/thumb ext and add intact 4/5 PT-OP-Q Treatments Start: 09/24/24 13:53 Freq: Status: Active Protocol: Document 11/02/24 08:18 [facility] (Rec: 11/02/24 13:03 [facility] [id number]) Therapeutic Exercises Supine Exercises foam roll Supine Exercise Name 1. UE flex 2. Habd Side bilateral Reps/Minutes 10 ea Sitting Exercises cervical spine stretches Sitting Exercise Name AROM measurments Standing Exercises tspine Standing Exercise Name ext over ball Reps/Minutes 20 sec x3 pec stretch Standing Exercise Name Doorway 90/90 Side bilateral Reps/Minutes 60 Manual Therapy Treatment Consent Patient gave verbal consent for manual Yes treatment Soft Tissue Mobilization cervical spine Body Location L paraspinals, SCM, scalenes, UT, LS, Mobilization Type Myofascial Release,Rolling, Sustained Pressure,Other Intensity/Depth Moderate Body Position Sidelying Joint Mobilizations thoracic spine Comments PA seated fwd lean w/ percussion L T3-6 R AC Joint L AC gaping c/r ribs Comments 1-3 AP L and caudal c/r PT-OP-T Assessment and Plan Start: 09/24/24 13:53 Freq: Status: Active Protocol: Document 11/02/24 08:18 [facility] (Rec: 11/02/24 13:03 [facility] [id number]) Physical Therapy Assessment Goals Three Impairment NDI 24/100 Skilled Nursing Goal (LTG) Pt will decrease NDI <15% impairment in order to demonstrate improve symptom management during ADLs/IADLs and quality of life 11/02-22% LTG Duration 10 weeks Two Impairment cervical spine AROM limited Short Term Goal (STG) Pt will improve B cervical lateral flexion > 20 deg in order to improve mobility during dressing 11/02-still limited STG Duration 6 weeks Skilled Nursing Goal (LTG) Pt will improve B cervical rotation to > 65 deg in order to improve visual scanning and compensations due to limited tilt 11/02-still limited LTG Duration 10 weeks One Impairment not performing HEP Short Term Goal (STG) Pt will be educated on sitting and sleeping ergonomics for postural education and to improve symptom management 11/02-progressive edu STG Duration 5 weeks Sas Sql Developer Goal (LTG) Pt will be IND with HEP in order to maximize progression with PT and transition to maintenance program upon discharge from PT 11/02-progressive independence LTG Duration 10 weeks Assessment Summary Assessment Pt is reporting dec episodes of neck pain and radiating pain from L scap region to neck. He is compliant w/ exercises but does cont to have excessive kyphosis causing major fwd head positioning and elevation of 1st rib w/B dec mobility. He improves w/manual but does still have significant restriction. Cont PT to improve mobility and dec pain. Physical Therapy Plan Frequency and Duration Frequency of Treatment 2x/Week Duration of treatment (weeks) 10 Plan of Care Start Date 09/27/24 Plan of Care End Date 12/10/24 Therapeutic Interventions Therapeutic Interventions Canalithic Repositioning,Gait Training,Home Exercise Program ,Joint Mobilizations,Manual Therapy,Neuromuscular Re- education,Orthotic/Prosthetic Management,Patient/Caregiver Education,Self-Care/Home Management,Sensory Integration ,Soft Tissue Mobilization, Taping,Therapeutic Activities, Therapeutic Exercises Modalities Cold Pack/Ice Massage,Electric Stimulation,Hot Packs, Ultrasound Other Therapeutic Interventions TMD, cervicogenic dizziness trigger point treatment Next Visit Focus/Plan Next Note Type Treatment Note Next Visit Plan Consider further upper thoracic and 1st/2nd rib mobility to imporve neck mobility, RFEcheck SNAGS ext&Rot /c towel and added 1/2 kneel open book. POC: progress wall posture and periscapular activation use wall. Trial modalities prn next session. Review seated piyush nerve glides prn, open books, thoracic ext in sitting, scap activation. Review HEP; CS isometrics, self STM teach, scapular mobility and pec stretch Manual: cervical spine, periscapulars, SOR- trial seated
--- NOTE | 2024-11-08 10:55 | PT.OTN ---
Current Diagnoses Stiffness of other specified joint, not elsewhere classified (11/08/24) Radiculopathy, cervical region (11/08/24) Cervicalgia (11/08/24) Other lack of coordination (11/08/24) Weakness (11/08/24) Physical Therapy Treatment Note PT-OP-A Visit Information Start: 09/24/24 13:53 Freq: Status: Active Protocol: Document 11/08/24 08:19 NM (Rec: 11/08/24 09:00 NM [id number]) Out-Patient Physical Therapy Visit Information Visit Information Visit Type Treatment Note Visit Note KX after 19 visits Visit Start Time 08:20 Visit Stop Time 09:00 Visit Number 10 (11/05 post PN) Evaluation Information Evaluation Date 09/27/24 Precautions Precautions fall risk, slow positional changes PT-OP-B Current Condition Start: 09/24/24 13:53 Freq: Status: Active Protocol: Document 09/27/24 09:00 NM (Rec: 09/27/24 09:48 NM [id number]) Current Condition History of Current Condition Onset Date 6 months ago Current Complaints stiffness, pain, headaches History of Current Condition Pt presents with neck pain. No reports of weakness into hands or arms. He states that his neck is stiff all the time and tight in the back. He reprots that he gets a pain the radiates from the base of L neck to the L head (up), prn to the R side. He reports that he gets hellacious headaches; he has to close his eyes and do neck stretches. He reports most limitations with tilting head. He rides motor cycles, reports that his head moves into ext. Has been occuring for 6 months, no SUNIL . He reports that he has jaw pain with opening, on L side e .g. for a yawn. He reports no muscle spasms in neck but does get them in back. Has taken cloroxozone for his legs. He has had a fall > 1 year ago, when his leg gave out and hit head on freezer in back. He reports that he has numbness/ tingling into B hands, getting EMG in October; R>L. He states fingers 3-5, numbness/ tingling, present some of the time. Occurs when reaching up/over, resting of arm in dependent position (arm rest in chair). He reports depends on how resting his arm. 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 Headaches last usually several minutes to hours unless he takes ibuprofen (1/2 hr); wraps around back of head near crown, occasionally behind eyes. Pt denies nausea, vomiting; he does report dizziness with standing, leaning back to shut eyes; not present when rolls over with bed. Prior Treatments and Tests Cervical spine radiograph 2023: Impression- multilevel degenerative changes of cervical spine, severe at C3- C4. Treatment Goals Patient/Caregiver Goals unhurt and unstiff PT-OP-C Subjective Start: 09/24/24 13:53 Freq: Status: Active Protocol: Document 11/08/24 08:19 NM (Rec: 11/08/24 09:00 NM [id number]) OP-PT Subjective Patient Comments Patient Comments Pt reports has improvements but states that he got EMG last week. He will be following up with Dr. Aquino to determine next plan. He felt fine after last session. Has forearm L tingling and pain today. Has cold/sinus infection right now but states took medicine and not coughing right now PT-OP-F Manual Assessment Start: 09/24/24 13:53 Freq: Status: Active Protocol: Document 09/29/24 09:48 NM (Rec: 09/29/24 10:38 NM [id number]) Manual Assessments Soft Tissue Assessment Soft Tissue Mobility Assessment Increased tightness along L > R cervical paraspinals, periscapulars. Joint Mobility Assessment Joint Mobility Assessment Decreased lateral gliding and mobility with PA mobilizations of cervical spine, decreased thoracic mobility. R GHJ clicking, non painful Other Manual Assessments Other Manual Assessments Slight deviation with opening mouth at L TMJ, clicking B (R> L) Cranial nerves: slight R deviation of tongue, no abnormalities with smell, sight, hearing. PT-OP-G Mobility & Gait Start: 09/24/24 13:53 Freq: Status: Active Protocol: Document 09/27/24 09:00 NM (Rec: 09/27/24 11:05 NM [id number]) OP Gait Assessment Gait Gait Assistance Required: Independent Distance (Feet) 150 Assistive Devices Assistive Device None Gait Deviations General Gait Pattern Antalgic,Decreased Stride Length Factors Limiting Gait Function Factors Limiting Gait Function Decreased Strength,Limited Range of Motion,Pain,Poor Balance Comments Gait Comments Decreased stance time on RLE PT-OP-H Neuro Start: 09/24/24 13:53 Freq: Status: Active Protocol: Document 09/29/24 09:48 NM (Rec: 09/29/24 10:38 NM [id number]) Sensation Evaluation Comments Summary Comments BUE equally intact to light touch sensation; mild decrease sharp/dull on C6-8 R>L PT-OP-J Posture/Palpation/Skin Start: 09/24/24 13:53 Freq: Status: Active Protocol: Document 09/27/24 09:00 NM (Rec: 09/27/24 09:48 NM [id number]) Posture Evaluation Position Standing Head/C-Spine Posture C-Spine Flattened,Forward Head L-Spine Posture Decreased Lordosis Scapula Posture (R) Elevated Arm Posture (L) Internally Rotated,(R) Internally Rotated Pelvis Posture Posterior Tilted Palpation Assessment Location cervical spine Palpation Findings Soft Tissue Tightness,Muscle Guarding,Tenderness Palpation Details Tenderness along mid-cervical spine at midline spinous processes, none laterally or at upper cervical spine Tightness along L sided paraspinals > R sided, traps, levator scapula, scalenes, SCM , post cuff, rhomboids, lat, pecs PT-OP-K Range of Motion Start: 09/24/24 13:53 Freq: Status: Active Protocol: Document 11/02/24 08:18 [facility] (Rec: 11/02/24 13:03 [facility] [id number]) Cervical Spine Range of Motion Cervical Spine Active Degrees Flexion 45 Extension 38 Rotation Left 52 Rotation Right 48 Lateral Flexion Left 16 Lateral Flexion Right 14 Comments pain on R w/ flex; pain R w/R SB, L SB & rot pain L PT-OP-L Special Tests Start: 09/24/24 13:53 Freq: Status: Active Protocol: Document 09/29/24 09:48 NM (Rec: 09/29/24 10:38 NM [id number]) Special Tests Cervical Spine Special Tests Vertebral a. screen Test Results BP 137/75 mmHg, no symptoms w/ positional testing Comments heart/carotid ausc/palp WFL; cranial n intact Upper Limb Tension Test Test Results + Comments R median, ulnar; L ulnar, radial PT-OP-M Strength Start: 09/24/24 13:53 Freq: Status: Active Protocol: Document 09/27/24 09:00 NM (Rec: 09/27/24 11:05 NM [id number]) Cervical Spine Strength Cervical Spine Manual Muscle Testing Flexion (C1-2) 4 Good Extension 4 Good Rotation Left 4 Good Rotation Right 4 Good Lateral Flexion Left (C3) 4 Good Lateral Flexion Right (C3) 4 Good Shoulder Strength Shoulder Manual Muscle Testing Right Flexion 4 Good Abduction (C5) 4 Good Left Flexion 4 Good Abduction (C5) 4 Good Elbow/Forearm Strength Elbow and Forearm Manual Muscle Testing Right Flexion (C6) 4 Good Extension (C7) 4 Good Left Flexion (C6) 4 Good Extension (C7) 4 Good Wrist Strength Wrist Manual Muscle Testing Right Flexion (C7) 4 Good Extension (C6) 4 Good Comments Finger abd/thumb ext and add intact 4/5 Left Flexion (C7) 4 Good Extension (C6) 4 Good Comments Finger abd/thumb ext and add intact 4/5 PT-OP-Q Treatments Start: 09/24/24 13:53 Freq: Status: Active Protocol: Document 11/08/24 08:19 NM (Rec: 11/08/24 09:00 NM [id number]) Therapeutic Exercises Sidelying Exercises shoulder trio Sidelying Exercise Name 1. ER, 2. flex, 3. abd Side bilateral Equipment Used towel roll btwn arm/body for ER Reps/Minutes 10 ea, ea side with 1-2 hold at end range; PT facil at scap Comments cued form, no cervical tension ; inc time needed for all d/t form Standing Exercises tspine Standing Exercise Name ext using ball w/ fwd reach Side bilateral Equipment Used orange sb on elevated plinth Reps/Minutes 15 ea w/ 5 hold Manual Therapy Treatment Consent Patient gave verbal consent for manual Yes treatment Soft Tissue Mobilization chest/trunk Body Location B pec, B post cuff and rhomboids Mobilization Type Rolling,Sustained Pressure Intensity/Depth Moderate Body Position Hooklying Comments performed B. Monitored for pain. Increased restrictions pecs R>L. cervical spine Body Location L paraspinals, SCM, scalenes, UT, LS Mobilization Type Myofascial Release,Rolling, Sustained Pressure,Other Intensity/Depth Moderate Body Position Sidelying Joint Mobilizations thoracic spine Comments PA w/ ext MWM. Most limited upper thoracic T1-6 scapulothoracic Joint R scapula Direction depression and adduction Grade III Body Position Sidelying Reps/Duration 10 ea Comments Monitored for pain ribs Joint 1st rib, clavicle Direction caudal Body Position Sidelying Reps/Duration 10 ea PT-OP-T Assessment and Plan Start: 09/24/24 13:53 Freq: Status: Active Protocol: Document 11/08/24 08:19 NM (Rec: 11/08/24 09:00 NM [id number]) Physical Therapy Assessment Goals Three Impairment NDI 24/100 Squad Leader Goal (LTG) Pt will decrease NDI <15% impairment in order to demonstrate improve symptom management during ADLs/IADLs and quality of life 11/02-22% LTG Duration 10 weeks Two Impairment cervical spine AROM limited Short Term Goal (STG) Pt will improve B cervical lateral flexion > 20 deg in order to improve mobility during dressing 11/02-still limited STG Duration 6 weeks Care Home Goal (LTG) Pt will improve B cervical rotation to > 65 deg in order to improve visual scanning and compensations due to limited tilt 11/02-still limited LTG Duration 10 weeks One Impairment not performing HEP Short Term Goal (STG) Pt will be educated on sitting and sleeping ergonomics for postural education and to improve symptom management 11/02-progressive edu STG Duration 5 weeks Care Home Goal (LTG) Pt will be IND with HEP in order to maximize progression with PT and transition to maintenance program upon discharge from PT 11/02-progressive independence LTG Duration 10 weeks Assessment Summary Assessment Initiated sidelying trio with cueing for form and scapular facilitation to improve muscle length and efficiency during overhead reaching tasks; no cervical spine tension B during treatment. Continues to have restrictions at first ribs L>R and thoracic kyphosis ; address with continued with thoracic extension mobilizations and exercise to address mobility and postural restrictions. Has less forearm pain and tingling into BUE following thoracic ext mobilization. Pt would continued to benefit from skilled PT to increase mobility, strength, and to decrease pain for improved quality of life. Physical Therapy Plan Frequency and Duration Frequency of Treatment 2x/Week Duration of treatment (weeks) 10 Plan of Care Start Date 09/27/24 Plan of Care End Date 12/10/24 Therapeutic Interventions Therapeutic Interventions Canalithic Repositioning,Gait Training,Home Exercise Program ,Joint Mobilizations,Manual Therapy,Neuromuscular Re- education,Orthotic/Prosthetic Management,Patient/Caregiver Education,Self-Care/Home Management,Sensory Integration ,Soft Tissue Mobilization, Taping,Therapeutic Activities, Therapeutic Exercises Modalities Cold Pack/Ice Massage,Electric Stimulation,Hot Packs, Ultrasound Other Therapeutic Interventions TMD, cervicogenic dizziness trigger point treatment Next Visit Focus/Plan Next Note Type Treatment Note Next Visit Plan Upper TS ext, rot and 1-2 rib mobility. Cont thoracic ext mob, tmt with ball. Add rows/ periscaps POC: progress wall posture and periscapular activation use wall. Trial modalities prn next session. Review seated piyush nerve glides prn, open books, thoracic ext in sitting, scap activation. Review HEP; CS isometrics, self STM teach, scapular mobility and pec stretch Manual: cervical spine, periscapulars, SOR- trial seate
--- NOTE | 2024-11-10 09:01 | PT.OTN ---
Current Diagnoses Stiffness of other specified joint, not elsewhere classified (11/10/24) Radiculopathy, cervical region (11/10/24) Cervicalgia (11/10/24) Other lack of coordination (11/10/24) Weakness (11/10/24) Physical Therapy Treatment Note PT-OP-A Visit Information Start: 09/24/24 13:53 Freq: Status: Active Protocol: Document 11/10/24 08:19 NM (Rec: 11/10/24 09:00 NM [id number]) Out-Patient Physical Therapy Visit Information Visit Information Visit Type Treatment Note Visit Note KX after 19 visits Visit Start Time 08:19 Visit Stop Time 09:00 Visit Number 11 (3/10 PN) Evaluation Information Evaluation Date 09/27/24 Precautions Precautions fall risk, slow positional changes PT-OP-B Current Condition Start: 09/24/24 13:53 Freq: Status: Active Protocol: Document 09/27/24 09:00 NM (Rec: 09/27/24 09:48 NM [id number]) Current Condition History of Current Condition Onset Date 6 months ago Current Complaints stiffness, pain, headaches History of Current Condition Pt presents with neck pain. No reports of weakness into hands or arms. He states that his neck is stiff all the time and tight in the back. He reprots that he gets a pain the radiates from the base of L neck to the L head (up), prn to the R side. He reports that he gets hellacious headaches; he has to close his eyes and do neck stretches. He reports most limitations with tilting head. He rides motor cycles, reports that his head moves into ext. Has been occuring for 6 months, no SUNIL . He reports that he has jaw pain with opening, on L side e .g. for a yawn. He reports no muscle spasms in neck but does get them in back. Has taken cloroxozone for his legs. He has had a fall > 1 year ago, when his leg gave out and hit head on freezer in back. He reports that he has numbness/ tingling into B hands, getting EMG in October; R>L. He states fingers 3-5, numbness/ tingling, present some of the time. Occurs when reaching up/over, resting of arm in dependent position (arm rest in chair). He reports depends on how resting his arm. 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 Headaches last usually several minutes to hours unless he takes ibuprofen (1/2 hr); wraps around back of head near crown, occasionally behind eyes. Pt denies nausea, vomiting; he does report dizziness with standing, leaning back to shut eyes; not present when rolls over with bed. Prior Treatments and Tests Cervical spine radiograph 2023: Impression- multilevel degenerative changes of cervical spine, severe at C3- C4. Treatment Goals Patient/Caregiver Goals unhurt and unstiff PT-OP-C Subjective Start: 09/24/24 13:53 Freq: Status: Active Protocol: Document 11/10/24 08:19 NM (Rec: 11/10/24 09:00 NM [id number]) OP-PT Subjective Patient Comments Patient Comments Pt reports still sick, has been coughing hard which hurts his ribs/chest. Reports no changes in tingling/numbness in hands. His R sided neck is tight due to sleeping on opposite side of pillows PT-OP-F Manual Assessment Start: 09/24/24 13:53 Freq: Status: Active Protocol: Document 09/29/24 09:48 NM (Rec: 09/29/24 10:38 NM [id number]) Manual Assessments Soft Tissue Assessment Soft Tissue Mobility Assessment Increased tightness along L > R cervical paraspinals, periscapulars. Joint Mobility Assessment Joint Mobility Assessment Decreased lateral gliding and mobility with PA mobilizations of cervical spine, decreased thoracic mobility. R GHJ clicking, non painful Other Manual Assessments Other Manual Assessments Slight deviation with opening mouth at L TMJ, clicking B (R> L) Cranial nerves: slight R deviation of tongue, no abnormalities with smell, sight, hearing. PT-OP-G Mobility & Gait Start: 09/24/24 13:53 Freq: Status: Active Protocol: Document 09/27/24 09:00 NM (Rec: 09/27/24 11:05 NM [id number]) OP Gait Assessment Gait Gait Assistance Required: Independent Distance (Feet) 150 Assistive Devices Assistive Device None Gait Deviations General Gait Pattern Antalgic,Decreased Stride Length Factors Limiting Gait Function Factors Limiting Gait Function Decreased Strength,Limited Range of Motion,Pain,Poor Balance Comments Gait Comments Decreased stance time on RLE PT-OP-H Neuro Start: 09/24/24 13:53 Freq: Status: Active Protocol: Document 09/29/24 09:48 NM (Rec: 09/29/24 10:38 NM [id number]) Sensation Evaluation Comments Summary Comments BUE equally intact to light touch sensation; mild decrease sharp/dull on C6-8 R>L PT-OP-J Posture/Palpation/Skin Start: 09/24/24 13:53 Freq: Status: Active Protocol: Document 09/27/24 09:00 NM (Rec: 09/27/24 09:48 NM [id number]) Posture Evaluation Position Standing Head/C-Spine Posture C-Spine Flattened,Forward Head L-Spine Posture Decreased Lordosis Scapula Posture (R) Elevated Arm Posture (L) Internally Rotated,(R) Internally Rotated Pelvis Posture Posterior Tilted Palpation Assessment Location cervical spine Palpation Findings Soft Tissue Tightness,Muscle Guarding,Tenderness Palpation Details Tenderness along mid-cervical spine at midline spinous processes, none laterally or at upper cervical spine Tightness along L sided paraspinals > R sided, traps, levator scapula, scalenes, SCM , post cuff, rhomboids, lat, pecs PT-OP-K Range of Motion Start: 09/24/24 13:53 Freq: Status: Active Protocol: Document 11/02/24 08:18 LR (Rec: 11/02/24 13:03 [facility] [id number]) Cervical Spine Range of Motion Cervical Spine Active Degrees Flexion 45 Extension 38 Rotation Left 52 Rotation Right 48 Lateral Flexion Left 16 Lateral Flexion Right 14 Comments pain on R w/ flex; pain R w/R SB, L SB & rot pain L PT-OP-L Special Tests Start: 09/24/24 13:53 Freq: Status: Active Protocol: Document 09/29/24 09:48 NM (Rec: 09/29/24 10:38 NM [id number]) Special Tests Cervical Spine Special Tests Vertebral a. screen Test Results BP 137/75 mmHg, no symptoms w/ positional testing Comments heart/carotid ausc/palp WFL; cranial n intact Upper Limb Tension Test Test Results + Comments R median, ulnar; L ulnar, radial PT-OP-M Strength Start: 09/24/24 13:53 Freq: Status: Active Protocol: Document 09/27/24 09:00 NM (Rec: 09/27/24 11:05 NM [id number]) Cervical Spine Strength Cervical Spine Manual Muscle Testing Flexion (C1-2) 4 Good Extension 4 Good Rotation Left 4 Good Rotation Right 4 Good Lateral Flexion Left (C3) 4 Good Lateral Flexion Right (C3) 4 Good Shoulder Strength Shoulder Manual Muscle Testing Right Flexion 4 Good Abduction (C5) 4 Good Left Flexion 4 Good Abduction (C5) 4 Good Elbow/Forearm Strength Elbow and Forearm Manual Muscle Testing Right Flexion (C6) 4 Good Extension (C7) 4 Good Left Flexion (C6) 4 Good Extension (C7) 4 Good Wrist Strength Wrist Manual Muscle Testing Right Flexion (C7) 4 Good Extension (C6) 4 Good Comments Finger abd/thumb ext and add intact 4/5 Left Flexion (C7) 4 Good Extension (C6) 4 Good Comments Finger abd/thumb ext and add intact 4/5 PT-OP-Q Treatments Start: 09/24/24 13:53 Freq: Status: Active Protocol: Document 11/10/24 08:19 NM (Rec: 11/10/24 09:00 NM [id number]) Therapeutic Exercises Supine Exercises foam roll Supine Exercise Name 1. ext w/ CS support, 2. UE flex w/ band, 3. HABD w/ band Side bilateral Resistance level 1 band Equipment Used full foam roller, mat on floor Reps/Minutes 10 ea Comments cued form; monitored for pain Standing Exercises rows Standing Exercise Name 1. rows HEP (declines HO), 2. low rows (HEP review) Side bilateral Resistance level 2 band > level 3 band Reps/Minutes 2x15 Comments cued for form, limit shoulder elec, improved w/ reps Manual Therapy Treatment Consent Patient gave verbal consent for manual Yes treatment Soft Tissue Mobilization chest/trunk Body Location B pec, B post cuff and rhomboids Mobilization Type Rolling,Sustained Pressure Intensity/Depth Moderate Body Position Hooklying Comments performed B. Monitored for pain. cervical spine Body Location B paraspinals, SCM, scalenes, UT, LS Mobilization Type Myofascial Release,Rolling, Sustained Pressure,Other Intensity/Depth Moderate Body Position Sitting Comments Increased restrictions R>L Joint Mobilizations thoracic spine Joint T3-6 Direction PA Grade III Body Position Sitting Comments Ext MWM. Monitored for pain. PT-OP-T Assessment and Plan Start: 09/24/24 13:53 Freq: Status: Active Protocol: Document 11/10/24 08:19 NM (Rec: 11/10/24 09:00 NM [id number]) Physical Therapy Assessment Goals Three Impairment NDI 24/100 Removable Prosthodontist Goal (LTG) Pt will decrease NDI <15% impairment in order to demonstrate improve symptom management during ADLs/IADLs and quality of life 11/02-22% LTG Duration 10 weeks Two Impairment cervical spine AROM limited Short Term Goal (STG) Pt will improve B cervical lateral flexion > 20 deg in order to improve mobility during dressing 11/02-still limited STG Duration 6 weeks Intermediate Goal (LTG) Pt will improve B cervical rotation to > 65 deg in order to improve visual scanning and compensations due to limited tilt 11/02-still limited LTG Duration 10 weeks One Impairment not performing HEP Short Term Goal (STG) Pt will be educated on sitting and sleeping ergonomics for postural education and to improve symptom management 11/02-progressive edu STG Duration 5 weeks Intermediate Goal (LTG) Pt will be IND with HEP in order to maximize progression with PT and transition to maintenance program upon discharge from PT 11/02-progressive independence LTG Duration 10 weeks Assessment Summary Assessment Pt reports no tingling into B hands at end of session but still has tightness in R neck. Continued with emphasis on thoracic mobility to decrease kyphosis and reduced postural strain on cervical spine. Progressed foam roller exercises to improve scapular muscle length and control. Initiated periscapular strengthening with band, cueing for correct execution and to limit compensations that reduced cervical spine muscle length. Pt would continue to benefit from skilled PT for progressive mobility and strengthening to decrease pain and improve flexibility. Physical Therapy Plan Frequency and Duration Frequency of Treatment 2x/Week Duration of treatment (weeks) 10 Plan of Care Start Date 09/27/24 Plan of Care End Date 12/10/24 Therapeutic Interventions Therapeutic Interventions Canalithic Repositioning,Gait Training,Home Exercise Program ,Joint Mobilizations,Manual Therapy,Neuromuscular Re- education,Orthotic/Prosthetic Management,Patient/Caregiver Education,Self-Care/Home Management,Sensory Integration ,Soft Tissue Mobilization, Taping,Therapeutic Activities, Therapeutic Exercises Modalities Cold Pack/Ice Massage,Electric Stimulation,Hot Packs, Ultrasound Other Therapeutic Interventions TMD, cervicogenic dizziness trigger point treatment Next Visit Focus/Plan Next Note Type Treatment Note Next Visit Plan Wall pect stretch. Assess caleb to mid rows and sidelying trio . Cont Upper TS ext, rot and 1 -2 rib mobility. Cont thoracic ext mob, tmt with ball. POC: periscapular activation use wall- trial wall Y/W. Manual: cervical spine, periscapulars, SOR- trial seate
--- NOTE | 2024-11-15 08:57 | PT.OTN ---
Current Diagnoses Stiffness of other specified joint, not elsewhere classified (11/15/24) Radiculopathy, cervical region (11/15/24) Cervicalgia (11/15/24) Other lack of coordination (11/15/24) Weakness (11/15/24) Physical Therapy Treatment Note PT-OP-A Visit Information Start: 09/24/24 13:53 Freq: Status: Active Protocol: Document 11/15/24 08:17 SP (Rec: 11/15/24 09:05 SP [id number]) Out-Patient Physical Therapy Visit Information Visit Information Visit Type Treatment Note Visit Note KX after 19 visits Visit Start Time 08:17 Visit Stop Time 08:57 Visit Number 12 (4/10 PN) Number of THERAPY TECHNICIAN Visits 1 Evaluation Information Evaluation Date 09/27/24 Precautions Precautions fall risk, slow positional changes PT-OP-B Current Condition Start: 09/24/24 13:53 Freq: Status: Active Protocol: Document 09/27/24 09:00 NM (Rec: 09/27/24 09:48 NM [id number]) Current Condition History of Current Condition Onset Date 6 months ago Current Complaints stiffness, pain, headaches History of Current Condition Pt presents with neck pain. No reports of weakness into hands or arms. He states that his neck is stiff all the time and tight in the back. He reprots that he gets a pain the radiates from the base of L neck to the L head (up), prn to the R side. He reports that he gets hellacious headaches; he has to close his eyes and do neck stretches. He reports most limitations with tilting head. He rides motor cycles, reports that his head moves into ext. Has been occuring for 6 months, no SUNIL . He reports that he has jaw pain with opening, on L side e .g. for a yawn. He reports no muscle spasms in neck but does get them in back. Has taken cloroxozone for his legs. He has had a fall > 1 year ago, when his leg gave out and hit head on freezer in back. He reports that he has numbness/ tingling into B hands, getting EMG in October; R>L. He states fingers 3-5, numbness/ tingling, present some of the time. Occurs when reaching up/over, resting of arm in dependent position (arm rest in chair). He reports depends on how resting his arm. 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 Headaches last usually several minutes to hours unless he takes ibuprofen (1/2 hr); wraps around back of head near crown, occasionally behind eyes. Pt denies nausea, vomiting; he does report dizziness with standing, leaning back to shut eyes; not present when rolls over with bed. Prior Treatments and Tests Cervical spine radiograph 2023: Impression- multilevel degenerative changes of cervical spine, severe at C3- C4. Treatment Goals Patient/Caregiver Goals unhurt and unstiff PT-OP-C Subjective Start: 09/24/24 13:53 Freq: Status: Active Protocol: Document 11/15/24 08:17 SP (Rec: 11/15/24 09:05 SP [id number]) OP-PT Subjective Patient Comments Patient Comments Pt reports Neck little tightness arrival. After last session had 3 spikes of pain in L UT but got better as day went on. Is getting some HEP in daily even when was sick. Hasn't got stamina back yet. PT-OP-F Manual Assessment Start: 09/24/24 13:53 Freq: Status: Active Protocol: Document 09/29/24 09:48 NM (Rec: 09/29/24 10:38 NM [id number]) Manual Assessments Soft Tissue Assessment Soft Tissue Mobility Assessment Increased tightness along L > R cervical paraspinals, periscapulars. Joint Mobility Assessment Joint Mobility Assessment Decreased lateral gliding and mobility with PA mobilizations of cervical spine, decreased thoracic mobility. R GHJ clicking, non painful Other Manual Assessments Other Manual Assessments Slight deviation with opening mouth at L TMJ, clicking B (R> L) Cranial nerves: slight R deviation of tongue, no abnormalities with smell, sight, hearing. PT-OP-G Mobility & Gait Start: 09/24/24 13:53 Freq: Status: Active Protocol: Document 09/27/24 09:00 NM (Rec: 09/27/24 11:05 NM [id number]) OP Gait Assessment Gait Gait Assistance Required: Independent Distance (Feet) 150 Assistive Devices Assistive Device None Gait Deviations General Gait Pattern Antalgic,Decreased Stride Length Factors Limiting Gait Function Factors Limiting Gait Function Decreased Strength,Limited Range of Motion,Pain,Poor Balance Comments Gait Comments Decreased stance time on RLE PT-OP-H Neuro Start: 09/24/24 13:53 Freq: Status: Active Protocol: Document 09/29/24 09:48 NM (Rec: 09/29/24 10:38 NM [id number]) Sensation Evaluation Comments Summary Comments BUE equally intact to light touch sensation; mild decrease sharp/dull on C6-8 R>L PT-OP-J Posture/Palpation/Skin Start: 09/24/24 13:53 Freq: Status: Active Protocol: Document 09/27/24 09:00 NM (Rec: 09/27/24 09:48 NM [id number]) Posture Evaluation Position Standing Head/C-Spine Posture C-Spine Flattened,Forward Head L-Spine Posture Decreased Lordosis Scapula Posture (R) Elevated Arm Posture (L) Internally Rotated,(R) Internally Rotated Pelvis Posture Posterior Tilted Palpation Assessment Location cervical spine Palpation Findings Soft Tissue Tightness,Muscle Guarding,Tenderness Palpation Details Tenderness along mid-cervical spine at midline spinous processes, none laterally or at upper cervical spine Tightness along L sided paraspinals > R sided, traps, levator scapula, scalenes, SCM , post cuff, rhomboids, lat, pecs PT-OP-K Range of Motion Start: 09/24/24 13:53 Freq: Status: Active Protocol: Document 11/02/24 08:18 LR (Rec: 11/02/24 13:03 [facility] [id number]) Cervical Spine Range of Motion Cervical Spine Active Degrees Flexion 45 Extension 38 Rotation Left 52 Rotation Right 48 Lateral Flexion Left 16 Lateral Flexion Right 14 Comments pain on R w/ flex; pain R w/R SB, L SB & rot pain L PT-OP-L Special Tests Start: 09/24/24 13:53 Freq: Status: Active Protocol: Document 09/29/24 09:48 NM (Rec: 09/29/24 10:38 NM [id number]) Special Tests Cervical Spine Special Tests Vertebral a. screen Test Results BP 137/75 mmHg, no symptoms w/ positional testing Comments heart/carotid ausc/palp WFL; cranial n intact Upper Limb Tension Test Test Results + Comments R median, ulnar; L ulnar, radial PT-OP-M Strength Start: 09/24/24 13:53 Freq: Status: Active Protocol: Document 09/27/24 09:00 NM (Rec: 09/27/24 11:05 NM [id number]) Cervical Spine Strength Cervical Spine Manual Muscle Testing Flexion (C1-2) 4 Good Extension 4 Good Rotation Left 4 Good Rotation Right 4 Good Lateral Flexion Left (C3) 4 Good Lateral Flexion Right (C3) 4 Good Shoulder Strength Shoulder Manual Muscle Testing Right Flexion 4 Good Abduction (C5) 4 Good Left Flexion 4 Good Abduction (C5) 4 Good Elbow/Forearm Strength Elbow and Forearm Manual Muscle Testing Right Flexion (C6) 4 Good Extension (C7) 4 Good Left Flexion (C6) 4 Good Extension (C7) 4 Good Wrist Strength Wrist Manual Muscle Testing Right Flexion (C7) 4 Good Extension (C6) 4 Good Comments Finger abd/thumb ext and add intact 4/5 Left Flexion (C7) 4 Good Extension (C6) 4 Good Comments Finger abd/thumb ext and add intact 4/5 PT-OP-Q Treatments Start: 09/24/24 13:53 Freq: Status: Active Protocol: Document 11/15/24 08:17 SP (Rec: 11/15/24 09:05 SP [id number]) Therapeutic Exercises Sidelying Exercises shoulder trio Sidelying Exercise Name 1. ER, 2. flex, 3. abd Side bilateral Resistance AROM Equipment Used towel roll btwn arm/body for ER Reps/Minutes 10 ea Comments cued form, no cervical tension , little protraction no discomfort GHJt open book Sidelying Exercise Name with cervical spine rotation- HEP review Side bilateral Reps/Minutes 8 reps Comments cued arm and scapular ROM into HABD before head turn- segmental mobiltiy Sitting Exercises SNAGS Sitting Exercise Name reviewed ext & rotation Side bilateral Equipment Used towel support Reps/Minutes 5 reps each (10 home) Comments good feedback stretch, no pain , cued hand position & towel over cheek bone Standing Exercises Ys off wall Standing Exercise Name trialed in PT & added to HEP declined HO Side bilateral Resistance AROM Reps/Minutes 10 reps, 2 SH TS ext wall Standing Exercise Name elbow walking up wall (TS - trialed in PT added to HEP declined HO) Side bilateral Reps/Minutes 5 reps, 3 SH Comments good mid back & tricep stretch , ed not LS ext Extension Standing Exercise Name reviewed UE ext /c CS rotation Side bilateral Resistance TB #2 at head Reps/Minutes x10 reps, 2 head turn Comments cued elbow ext, scap retraction, maintain CS retracttion /c HT pec stretch Standing Exercise Name Doorway 90/90 Side bilateral Reps/Minutes 60 Comments cued head up and wt shift into front leg (stride stance) Manual Therapy Treatment Consent Patient gave verbal consent for manual Yes treatment Soft Tissue Mobilization chest/trunk Body Location B pec, B post cuff, B rhomboids,B lat Mobilization Type Rolling,Sustained Pressure Intensity/Depth Moderate Body Position Hooklying Comments STMs and pressure /c breath, Monitored for pain. cervical spine Body Location B paraspinals, SCM, scalenes, UT, LS Mobilization Type Myofascial Release,Rolling, Sustained Pressure,Other Intensity/Depth Moderate Body Position Sitting Comments Increased restrictions and sensitivity to pressure L>R today 11/15. 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 And Polisher Goal (LTG) Pt will decrease NDI <15% impairment in order to demonstrate improve symptom management during ADLs/IADLs and quality of life 11/02-22% LTG Duration 10 weeks Two Impairment cervical spine AROM limited Short Term Goal (STG) Pt will improve B cervical lateral flexion > 20 deg in order to improve mobility during dressing 11/02-still limited STG Duration 6 weeks Long-Term Goal (LTG) Pt will improve B cervical rotation to > 65 deg in order to improve visual scanning and compensations due to limited tilt 7-still limited LTG Duration 10 weeks One Impairment not performing HEP Short Term Goal (STG) Pt will be educated on sitting and sleeping ergonomics for postural education and to improve symptom management 11/02-progressive edu STG Duration 5 weeks Long-Term Goal (LTG) Pt will be IND with HEP in order to maximize progression with PT and transition to maintenance program upon discharge from PT 11/02-progressive independence LTG Duration 10 weeks Assessment Summary Assessment Pt improved cervical rotation and less muscular tension post manual, with verbal ed continue use towel SNAGS support. Cues for protraction during arc shld trio helped no discomfort shld during abd. Trialed TS ext and Ys off wall for postural support and UT recruitment reduction with good feedback assist, declined HO for carryover performance home. Physical Therapy Plan Frequency and Duration Frequency of Treatment 2x/Week Duration of treatment (weeks) 10 Plan of Care Start Date 09/27/24 Plan of Care End Date 12/10/24 Therapeutic Interventions Therapeutic Interventions Canalithic Repositioning,Gait Training,Home Exercise Program ,Joint Mobilizations,Manual Therapy,Neuromuscular Re- education,Orthotic/Prosthetic Management,Patient/Caregiver Education,Self-Care/Home Management,Sensory Integration ,Soft Tissue Mobilization, Taping,Therapeutic Activities, Therapeutic Exercises Modalities Cold Pack/Ice Massage,Electric Stimulation,Hot Packs, Ultrasound Other Therapeutic Interventions TMD, cervicogenic dizziness trigger point treatment Next Visit Focus/Plan Next Note Type Treatment Note Next Visit Plan Cont Upper TS ext Ys off wall, elbow wall walking added ( declined HO),Assess caleb to mid rows and sidelying trio. Cont rot and 1-2 rib mobility. Cont thoracic ext mob, tmt with ball. Manual: cervical spine, periscapulars, SOR- trial seate
--- NOTE | 2024-11-17 09:02 | PT.OTN ---
Current Diagnoses Stiffness of other specified joint, not elsewhere classified (11/17/24) Radiculopathy, cervical region (11/17/24) Cervicalgia (11/17/24) Other lack of coordination (11/17/24) Weakness (11/17/24) Physical Therapy Treatment Note PT-OP-A Visit Information Start: 09/24/24 13:53 Freq: Status: Active Protocol: Document 11/17/24 08:18 NM (Rec: 11/17/24 09:01 NM [id number]) Out-Patient Physical Therapy Visit Information Visit Information Visit Type Treatment Note Visit Note KX after 19 visits Visit Start Time 08:19 Visit Stop Time 08:58 Visit Number 13 (5/10 PN) Evaluation Information Evaluation Date 09/27/24 Precautions Precautions fall risk, slow positional changes PT-OP-B Current Condition Start: 09/24/24 13:53 Freq: Status: Active Protocol: Document 09/27/24 09:00 NM (Rec: 09/27/24 09:48 NM [id number]) Current Condition History of Current Condition Onset Date 6 months ago Current Complaints stiffness, pain, headaches History of Current Condition Pt presents with neck pain. No reports of weakness into hands or arms. He states that his neck is stiff all the time and tight in the back. He reprots that he gets a pain the radiates from the base of L neck to the L head (up), prn to the R side. He reports that he gets hellacious headaches; he has to close his eyes and do neck stretches. He reports most limitations with tilting head. He rides motor cycles, reports that his head moves into ext. Has been occuring for 6 months, no SUNIL . He reports that he has jaw pain with opening, on L side e .g. for a yawn. He reports no muscle spasms in neck but does get them in back. Has taken cloroxozone for his legs. He has had a fall > 1 year ago, when his leg gave out and hit head on freezer in back. He reports that he has numbness/ tingling into B hands, getting EMG in October; R>L. He states fingers 3-5, numbness/ tingling, present some of the time. Occurs when reaching up/over, resting of arm in dependent position (arm rest in chair). He reports depends on how resting his arm. 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 Headaches last usually several minutes to hours unless he takes ibuprofen (1/2 hr); wraps around back of head near crown, occasionally behind eyes. Pt denies nausea, vomiting; he does report dizziness with standing, leaning back to shut eyes; not present when rolls over with bed. Prior Treatments and Tests Cervical spine radiograph 2023: Impression- multilevel degenerative changes of cervical spine, severe at C3- C4. Treatment Goals Patient/Caregiver Goals unhurt and unstiff PT-OP-C Subjective Start: 09/24/24 13:53 Freq: Status: Active Protocol: Document 11/17/24 08:18 NM (Rec: 11/17/24 09:01 NM [id number]) OP-PT Subjective Patient Comments Patient Comments Pt reports no spasms in his neck but still tight. Overall, states doing pretty good today. Slight tingle in BUE. He gets to see surgeon today PT-OP-F Manual Assessment Start: 09/24/24 13:53 Freq: Status: Active Protocol: Document 09/29/24 09:48 NM (Rec: 09/29/24 10:38 NM [id number]) Manual Assessments Soft Tissue Assessment Soft Tissue Mobility Assessment Increased tightness along L > R cervical paraspinals, periscapulars. Joint Mobility Assessment Joint Mobility Assessment Decreased lateral gliding and mobility with PA mobilizations of cervical spine, decreased thoracic mobility. R GHJ clicking, non painful Other Manual Assessments Other Manual Assessments Slight deviation with opening mouth at L TMJ, clicking B (R> L) Cranial nerves: slight R deviation of tongue, no abnormalities with smell, sight, hearing. PT-OP-G Mobility & Gait Start: 09/24/24 13:53 Freq: Status: Active Protocol: Document 09/27/24 09:00 NM (Rec: 09/27/24 11:05 NM [id number]) OP Gait Assessment Gait Gait Assistance Required: Independent Distance (Feet) 150 Assistive Devices Assistive Device None Gait Deviations General Gait Pattern Antalgic,Decreased Stride Length Factors Limiting Gait Function Factors Limiting Gait Function Decreased Strength,Limited Range of Motion,Pain,Poor Balance Comments Gait Comments Decreased stance time on RLE PT-OP-H Neuro Start: 09/24/24 13:53 Freq: Status: Active Protocol: Document 09/29/24 09:48 NM (Rec: 09/29/24 10:38 NM [id number]) Sensation Evaluation Comments Summary Comments BUE equally intact to light touch sensation; mild decrease sharp/dull on C6-8 R>L PT-OP-J Posture/Palpation/Skin Start: 09/24/24 13:53 Freq: Status: Active Protocol: Document 09/27/24 09:00 NM (Rec: 09/27/24 09:48 NM [id number]) Posture Evaluation Position Standing Head/C-Spine Posture C-Spine Flattened,Forward Head L-Spine Posture Decreased Lordosis Scapula Posture (R) Elevated Arm Posture (L) Internally Rotated,(R) Internally Rotated Pelvis Posture Posterior Tilted Palpation Assessment Location cervical spine Palpation Findings Soft Tissue Tightness,Muscle Guarding,Tenderness Palpation Details Tenderness along mid-cervical spine at midline spinous processes, none laterally or at upper cervical spine Tightness along L sided paraspinals > R sided, traps, levator scapula, scalenes, SCM , post cuff, rhomboids, lat, pecs PT-OP-K Range of Motion Start: 09/24/24 13:53 Freq: Status: Active Protocol: Document 11/02/24 08:18 [facility] (Rec: 11/02/24 13:03 [facility] [id number]) Cervical Spine Range of Motion Cervical Spine Active Degrees Flexion 45 Extension 38 Rotation Left 52 Rotation Right 48 Lateral Flexion Left 16 Lateral Flexion Right 14 Comments pain on R w/ flex; pain R w/R SB, L SB & rot pain L PT-OP-L Special Tests Start: 09/24/24 13:53 Freq: Status: Active Protocol: Document 09/29/24 09:48 NM (Rec: 09/29/24 10:38 NM [id number]) Special Tests Cervical Spine Special Tests Vertebral a. screen Test Results BP 137/75 mmHg, no symptoms w/ positional testing Comments heart/carotid ausc/palp WFL; cranial n intact Upper Limb Tension Test Test Results + Comments R median, ulnar; L ulnar, radial PT-OP-M Strength Start: 09/24/24 13:53 Freq: Status: Active Protocol: Document 09/27/24 09:00 NM (Rec: 09/27/24 11:05 NM [id number]) Cervical Spine Strength Cervical Spine Manual Muscle Testing Flexion (C1-2) 4 Good Extension 4 Good Rotation Left 4 Good Rotation Right 4 Good Lateral Flexion Left (C3) 4 Good Lateral Flexion Right (C3) 4 Good Shoulder Strength Shoulder Manual Muscle Testing Right Flexion 4 Good Abduction (C5) 4 Good Left Flexion 4 Good Abduction (C5) 4 Good Elbow/Forearm Strength Elbow and Forearm Manual Muscle Testing Right Flexion (C6) 4 Good Extension (C7) 4 Good Left Flexion (C6) 4 Good Extension (C7) 4 Good Wrist Strength Wrist Manual Muscle Testing Right Flexion (C7) 4 Good Extension (C6) 4 Good Comments Finger abd/thumb ext and add intact 4/5 Left Flexion (C7) 4 Good Extension (C6) 4 Good Comments Finger abd/thumb ext and add intact 4/5 PT-OP-Q Treatments Start: 09/24/24 13:53 Freq: Status: Active Protocol: Document 11/17/24 08:18 NM (Rec: 11/17/24 09:01 NM [id number]) Therapeutic Exercises Sitting Exercises SNAGS Sitting Exercise Name ext and rot Side bilateral Equipment Used towel Reps/Minutes 8 Comments post manual Standing Exercises W's Standing Exercise Name Trialed in PT: back facing wall Reps/Minutes 10 Comments ~ snow john paul for posture; mild R shldr discomfort Ys off wall Standing Exercise Name HEP review Side bilateral Resistance AROM Reps/Minutes 12x2 hold Comments [employer]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 low pec, 2. 90/90 Side bilateral Reps/Minutes 60 ea Comments minimal cues needed, no increased tingling Manual Therapy Treatment Consent Patient gave verbal consent for manual Yes treatment Soft Tissue Mobilization cervical spine Body Location B paraspinals, SCM, scalenes, UT, LS Mobilization Type Myofascial Release,Rolling, Sustained Pressure,Other Intensity/Depth Moderate Body Position Sitting Comments No tenderness or trigger points today, less restriction L>R. 60 deg B rot today PT-OP-T Assessment and Plan Start: 09/24/24 13:53 Freq: Status: Active Protocol: Document 11/17/24 08:18 NM (Rec: 11/17/24 09:01 NM [id number]) Physical Therapy Assessment Goals Three Impairment NDI 24/100 Braided Rug Maker Goal (LTG) Pt will decrease NDI <15% impairment in order to demonstrate improve symptom management during ADLs/IADLs and quality of life 11/02-22% LTG Duration 10 weeks Two Impairment cervical spine AROM limited Short Term Goal (STG) Pt will improve B cervical lateral flexion > 20 deg in order to improve mobility during dressing 11/02-still limited 11/17/24: 15 deg STG Duration 6 weeks Jail Goal (LTG) Pt will improve B cervical rotation to > 65 deg in order to improve visual scanning and compensations due to limited tilt 11/02-still limited 11/17/24: 60 deg B today LTG Duration 10 weeks One Impairment not performing HEP Short Term Goal (STG) Pt will be educated on sitting and sleeping ergonomics for postural education and to improve symptom management 11/02-progressive edu STG Duration 5 weeks Jail Goal (LTG) Pt will be IND with HEP in order to maximize progression with PT and transition to maintenance program upon discharge from PT 11/02-progressive independence LTG Duration 10 weeks Assessment Summary Assessment Pt progressing with cervical rotation ROM, now 60 deg B; progressive rotation and lateral flexion ROM limited by muscle tension and joint mobility restrictions at cervical spine. Continues to demo improvement with tolerance for therapeutic exercise, especially periscapular strengthening. Able to progress to wall W but with back to wall to promote upper trunk extension. Minimal cueing needed for set up all exercises, but cueing needed for correct execution and to limit compensations with other periscapulars due to muscle tightness and weakness. Pt would continue to benefit from skilled PT for improved mobility and to decrease pain. Physical Therapy Plan Frequency and Duration Frequency of Treatment 2x/Week Duration of treatment (weeks) 10 Plan of Care Start Date 09/27/24 Plan of Care End Date 12/10/24 Therapeutic Interventions Therapeutic Interventions Canalithic Repositioning,Gait Training,Home Exercise Program ,Joint Mobilizations,Manual Therapy,Neuromuscular Re- education,Orthotic/Prosthetic Management,Patient/Caregiver Education,Self-Care/Home Management,Sensory Integration ,Soft Tissue Mobilization, Taping,Therapeutic Activities, Therapeutic Exercises Modalities Cold Pack/Ice Massage,Electric Stimulation,Hot Packs, Ultrasound Other Therapeutic Interventions TMD, cervicogenic dizziness trigger point treatment Next Visit Focus/Plan Next Note Type Treatment Note Next Visit Plan Needs HO for HEP for improved carryover. CS lat flex mob; Trial ext and periscap off ball for improved posture. can trial s/l tri w/ wt. Cont rot and 1-2 rib mobility. Cont thoracic ext mob, tmt with ball. Manual: cervical spine, periscapulars, SOR- trial seate
--- NOTE | 2024-11-23 09:01 | PT.OTN ---
Current Diagnoses Stiffness of other specified joint, not elsewhere classified (11/23/24) Radiculopathy, cervical region (11/23/24) Cervicalgia (11/23/24) Other lack of coordination (11/23/24) Weakness (11/23/24) Physical Therapy Treatment Note PT-OP-A Visit Information Start: 09/24/24 13:53 Freq: Status: Active Protocol: Document 11/23/24 08:19 NM (Rec: 11/23/24 09:01 NM [id number]) Out-Patient Physical Therapy Visit Information Visit Information Visit Type Treatment Note Visit Note KX after 19 visits Visit Start Time 08:20 Visit Stop Time 09:59 Visit Number 14 (6/ PN) Evaluation Information Evaluation Date 09/27/24 Precautions Precautions fall risk, slow positional changes PT-OP-B Current Condition Start: 09/24/24 13:53 Freq: Status: Active Protocol: Document 09/27/24 09:00 NM (Rec: 09/27/24 09:48 NM [id number]) Current Condition History of Current Condition Onset Date 6 months ago Current Complaints stiffness, pain, headaches History of Current Condition Pt presents with neck pain. No reports of weakness into hands or arms. He states that his neck is stiff all the time and tight in the back. He reprots that he gets a pain the radiates from the base of L neck to the L head (up), prn to the R side. He reports that he gets hellacious headaches; he has to close his eyes and do neck stretches. He reports most limitations with tilting head. He rides motor cycles, reports that his head moves into ext. Has been occuring for 6 months, no SUNIL . He reports that he has jaw pain with opening, on L side e .g. for a yawn. He reports no muscle spasms in neck but does get them in back. Has taken cloroxozone for his legs. He has had a fall > 1 year ago, when his leg gave out and hit head on freezer in back. He reports that he has numbness/ tingling into B hands, getting EMG in October; R>L. He states fingers 3-5, numbness/ tingling, present some of the time. Occurs when reaching up/over, resting of arm in dependent position (arm rest in chair). He reports depends on how resting his arm. 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 Headaches last usually several minutes to hours unless he takes ibuprofen (1/2 hr); wraps around back of head near crown, occasionally behind eyes. Pt denies nausea, vomiting; he does report dizziness with standing, leaning back to shut eyes; not present when rolls over with bed. Prior Treatments and Tests Cervical spine radiograph 2023: Impression- multilevel degenerative changes of cervical spine, severe at C3- C4. 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 Reports felt good after last treatment but states still feels sick so coughing hurts. Reports minimal changes. Told to quit using brace during day, only at night PT-OP-F Manual Assessment Start: 09/24/24 13:53 Freq: Status: Active Protocol: Document 09/29/24 09:48 NM (Rec: 09/29/24 10:38 NM [id number]) Manual Assessments Soft Tissue Assessment Soft Tissue Mobility Assessment Increased tightness along L > R cervical paraspinals, periscapulars. Joint Mobility Assessment Joint Mobility Assessment Decreased lateral gliding and mobility with PA mobilizations of cervical spine, decreased thoracic mobility. R GHJ clicking, non painful Other Manual Assessments Other Manual Assessments Slight deviation with opening mouth at L TMJ, clicking B (R> L) Cranial nerves: slight R deviation of tongue, no abnormalities with smell, sight, hearing. PT-OP-G Mobility & Gait Start: 09/24/24 13:53 Freq: Status: Active Protocol: Document 09/27/24 09:00 NM (Rec: 09/27/24 11:05 NM [id number]) OP Gait Assessment Gait Gait Assistance Required: Independent Distance (Feet) 150 Assistive Devices Assistive Device None Gait Deviations General Gait Pattern Antalgic,Decreased Stride Length Factors Limiting Gait Function Factors Limiting Gait Function Decreased Strength,Limited Range of Motion,Pain,Poor Balance Comments Gait Comments Decreased stance time on RLE PT-OP-H Neuro Start: 09/24/24 13:53 Freq: Status: Active Protocol: Document 09/29/24 09:48 NM (Rec: 09/29/24 10:38 NM [id number]) Sensation Evaluation Comments Summary Comments BUE equally intact to light touch sensation; mild decrease sharp/dull on C6-8 R>L PT-OP-J Posture/Palpation/Skin Start: 09/24/24 13:53 Freq: Status: Active Protocol: Document 09/27/24 09:00 NM (Rec: 09/27/24 09:48 NM [id number]) Posture Evaluation Position Standing Head/C-Spine Posture C-Spine Flattened,Forward Head L-Spine Posture Decreased Lordosis Scapula Posture (R) Elevated Arm Posture (L) Internally Rotated,(R) Internally Rotated Pelvis Posture Posterior Tilted Palpation Assessment Location cervical spine Palpation Findings Soft Tissue Tightness,Muscle Guarding,Tenderness Palpation Details Tenderness along mid-cervical spine at midline spinous processes, none laterally or at upper cervical spine Tightness along L sided paraspinals > R sided, traps, levator scapula, scalenes, SCM , post cuff, rhomboids, lat, pecs PT-OP-K Range of Motion Start: 09/24/24 13:53 Freq: Status: Active Protocol: Document 11/02/24 08:18 LR (Rec: 11/02/24 13:03 [facility] [id number]) Cervical Spine Range of Motion Cervical Spine Active Degrees Flexion 45 Extension 38 Rotation Left 52 Rotation Right 48 Lateral Flexion Left 16 Lateral Flexion Right 14 Comments pain on R w/ flex; pain R w/R SB, L SB & rot pain L PT-OP-L Special Tests Start: 09/24/24 13:53 Freq: Status: Active Protocol: Document 09/29/24 09:48 NM (Rec: 09/29/24 10:38 NM [id number]) Special Tests Cervical Spine Special Tests Vertebral a. screen Test Results BP 137/75 mmHg, no symptoms w/ positional testing Comments heart/carotid ausc/palp WFL; cranial n intact Upper Limb Tension Test Test Results + Comments R median, ulnar; L ulnar, radial PT-OP-M Strength Start: 09/24/24 13:53 Freq: Status: Active Protocol: Document 09/27/24 09:00 NM (Rec: 09/27/24 11:05 NM [id number]) Cervical Spine Strength Cervical Spine Manual Muscle Testing Flexion (C1-2) 4 Good Extension 4 Good Rotation Left 4 Good Rotation Right 4 Good Lateral Flexion Left (C3) 4 Good Lateral Flexion Right (C3) 4 Good Shoulder Strength Shoulder Manual Muscle Testing Right Flexion 4 Good Abduction (C5) 4 Good Left Flexion 4 Good Abduction (C5) 4 Good Elbow/Forearm Strength Elbow and Forearm Manual Muscle Testing Right Flexion (C6) 4 Good Extension (C7) 4 Good Left Flexion (C6) 4 Good Extension (C7) 4 Good Wrist Strength Wrist Manual Muscle Testing Right Flexion (C7) 4 Good Extension (C6) 4 Good Comments Finger abd/thumb ext and add intact 4/5 Left Flexion (C7) 4 Good Extension (C6) 4 Good Comments Finger abd/thumb ext and add intact 4/5 PT-OP-Q Treatments Start: 09/24/24 13:53 Freq: Status: Active Protocol: Document 11/23/24 08:19 NM (Rec: 11/23/24 09:01 NM [id number]) Therapeutic Exercises Sidelying Exercises shoulder trio Sidelying Exercise Name ER only today Side bilateral Resistance 1# db Equipment Used towel roll btwn arm/body for ER Reps/Minutes 10 ea Comments no pain but reports inc tingling RUE w/ inc reps Sitting Exercises cervical spine isometrics Sitting Exercise Name cervical retraction c/ band Side bilateral Resistance level 1 band at head, isometric Reps/Minutes 8 Comments verbal and tactile cues for correct form; improved w/ reps Standing Exercises TS ext wall Standing Exercise Name wall slides for trunk ext Reps/Minutes 10 Comments improved TS ext tspine Standing Exercise Name rainbow at wall Side bilateral Reps/Minutes 8 ea Comments partial ROM due to R rib discomfort Manual Therapy Treatment Consent Patient gave verbal consent for manual Yes treatment Soft Tissue Mobilization cervical spine Body Location B paraspinals, SCM, scalenes, UT, LS Mobilization Type Myofascial Release,Rolling, Sustained Pressure,Other Intensity/Depth Moderate Body Position Sitting Comments No tenderness or trigger points today, less restriction L>R. Joint Mobilizations cervical spine Joint C3-5 Direction B lateral glides Grade II Reps/Duration 2x10 ea Comments Performed in sitting and standingMonitored for pain. PT-OP-T Assessment and Plan Start: 09/24/24 13:53 Freq: Status: Active Protocol: Document 11/23/24 08:19 NM (Rec: 11/23/24 09:01 NM [id number]) Physical Therapy Assessment Goals Three Impairment NDI 24/100 Care Home Goal (LTG) Pt will decrease NDI <15% impairment in order to demonstrate improve symptom management during ADLs/IADLs and quality of life 11/02-22% LTG Duration 10 weeks Two Impairment cervical spine AROM limited Short Term Goal (STG) Pt will improve B cervical lateral flexion > 20 deg in order to improve mobility during dressing 11/02-still limited 11/17/24: 15 deg 11/23/24: 20 deg R, 10 deg L pre-manual; STG Duration 6 weeks Care Home Goal (LTG) Pt will improve B cervical rotation to > 65 deg in order to improve visual scanning and compensations due to limited tilt 11/02-still limited 11/17/24: 60 deg B today 11/23/24: LTG Duration 10 weeks One Impairment not performing HEP Short Term Goal (STG) Pt will be educated on sitting and sleeping ergonomics for postural education and to improve symptom management 11/02-progressive edu STG Duration 5 weeks Care Home Goal (LTG) Pt will be IND with HEP in order to maximize progression with PT and transition to maintenance program upon discharge from PT 11/02-progressive independence LTG Duration 10 weeks Assessment Summary Assessment Trialed resistance with shoulder ER; reports mild increase in tingling RUE with exercise. Pt not wearing brace on wrist. Thoracic ROM exercises initially restricted by rib pain, improved ROM and decreased pain with reps. Continued with cervical spine mobilizations to increase ROM and decrease joint restrictions. Pt demos improvements in L cervical spine ROM to 18 deg lateral flex, 60 deg rot; R ROM 20 deg lateral flexion, 60 deg rot. Pt would continue to benefit from skilled PT to decrease pain and improve flexibility. Physical Therapy Plan Frequency and Duration Frequency of Treatment 2x/Week Duration of treatment (weeks) 10 Plan of Care Start Date 09/27/24 Plan of Care End Date 12/10/24 Therapeutic Interventions Therapeutic Interventions Canalithic Repositioning,Gait Training,Home Exercise Program ,Joint Mobilizations,Manual Therapy,Neuromuscular Re- education,Orthotic/Prosthetic Management,Patient/Caregiver Education,Self-Care/Home Management,Sensory Integration ,Soft Tissue Mobilization, Taping,Therapeutic Activities, Therapeutic Exercises Modalities Cold Pack/Ice Massage,Electric Stimulation,Hot Packs, Ultrasound Other Therapeutic Interventions TMD, cervicogenic dizziness trigger point treatment Next Visit Focus/Plan Next Note Type Treatment Note Next Visit Plan Needs HO for HEP for improved carryover. Retrial banded retraction, add rot. snow john paul w/ band. CS lat flex mob ; Trial ext and periscap off ball for improved posture. can trial s/l tri w/ wt. Cont rot and 1-2 rib mobility. Cont thoracic ext mob, tmt with ball. Manual: cervical spine, periscapulars, SOR- trial seate
--- NOTE | 2024-11-25 13:00 | PT.OTN ---
Current Diagnoses Stiffness of other specified joint, not elsewhere classified (11/25/24) Radiculopathy, cervical region (11/25/24) Cervicalgia (11/25/24) Other lack of coordination (11/25/24) Weakness (11/25/24) Physical Therapy Treatment Note PT-OP-A Visit Information Start: 09/24/24 13:53 Freq: Status: Active Protocol: Document 11/25/24 10:47 NM (Rec: 11/25/24 10:50 NM [id number]) Out-Patient Physical Therapy Visit Information Visit Information Visit Type Treatment Note Visit Note KX after 19 visits Visit Start Time 10:51 Visit Stop Time 11:30 Visit Number 15 (7/10 PN) Evaluation Information Evaluation Date 09/27/24 Precautions Precautions fall risk, slow positional changes PT-OP-B Current Condition Start: 09/24/24 13:53 Freq: Status: Active Protocol: Document 09/27/24 09:00 NM (Rec: 09/27/24 09:48 NM [id number]) Current Condition History of Current Condition Onset Date 6 months ago Current Complaints stiffness, pain, headaches History of Current Condition Pt presents with neck pain. No reports of weakness into hands or arms. He states that his neck is stiff all the time and tight in the back. He reprots that he gets a pain the radiates from the base of L neck to the L head (up), prn to the R side. He reports that he gets hellacious headaches; he has to close his eyes and do neck stretches. He reports most limitations with tilting head. He rides motor cycles, reports that his head moves into ext. Has been occuring for 6 months, no SUNIL . He reports that he has jaw pain with opening, on L side e .g. for a yawn. He reports no muscle spasms in neck but does get them in back. Has taken cloroxozone for his legs. He has had a fall > 1 year ago, when his leg gave out and hit head on freezer in back. He reports that he has numbness/ tingling into B hands, getting EMG in October; R>L. He states fingers 3-5, numbness/ tingling, present some of the time. Occurs when reaching up/over, resting of arm in dependent position (arm rest in chair). He reports depends on how resting his arm. 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 Headaches last usually several minutes to hours unless he takes ibuprofen (1/2 hr); wraps around back of head near crown, occasionally behind eyes. Pt denies nausea, vomiting; he does report dizziness with standing, leaning back to shut eyes; not present when rolls over with bed. Prior Treatments and Tests Cervical spine radiograph 2023: Impression- multilevel degenerative changes of cervical spine, severe at C3- C4. Treatment Goals Patient/Caregiver Goals unhurt and unstiff PT-OP-C Subjective Start: 09/24/24 13:53 Freq: Status: Active Protocol: Document 11/25/24 10:47 NM (Rec: 11/25/24 10:50 NM [id number]) OP-PT Subjective Patient Comments Patient Comments Pt reports will have surgery on L wrist 12/17. Yesterday was a rough day as pt had to help MIL with hospice equipment, moving all furniture in living room; doing better today. [place] looser after mobilizations last sessions PT-OP-F Manual Assessment Start: 09/24/24 13:53 Freq: Status: Active Protocol: Document 09/29/24 09:48 NM (Rec: 09/29/24 10:38 NM [id number]) Manual Assessments Soft Tissue Assessment Soft Tissue Mobility Assessment Increased tightness along L > R cervical paraspinals, periscapulars. Joint Mobility Assessment Joint Mobility Assessment Decreased lateral gliding and mobility with PA mobilizations of cervical spine, decreased thoracic mobility. R GHJ clicking, non painful Other Manual Assessments Other Manual Assessments Slight deviation with opening mouth at L TMJ, clicking B (R> L) Cranial nerves: slight R deviation of tongue, no abnormalities with smell, sight, hearing. PT-OP-G Mobility & Gait Start: 09/24/24 13:53 Freq: Status: Active Protocol: Document 09/27/24 09:00 NM (Rec: 09/27/24 11:05 NM [id number]) OP Gait Assessment Gait Gait Assistance Required: Independent Distance (Feet) 150 Assistive Devices Assistive Device None Gait Deviations General Gait Pattern Antalgic,Decreased Stride Length Factors Limiting Gait Function Factors Limiting Gait Function Decreased Strength,Limited Range of Motion,Pain,Poor Balance Comments Gait Comments Decreased stance time on RLE PT-OP-H Neuro Start: 09/24/24 13:53 Freq: Status: Active Protocol: Document 09/29/24 09:48 NM (Rec: 09/29/24 10:38 NM [id number]) Sensation Evaluation Comments Summary Comments BUE equally intact to light touch sensation; mild decrease sharp/dull on C6-8 R>L PT-OP-J Posture/Palpation/Skin Start: 09/24/24 13:53 Freq: Status: Active Protocol: Document 09/27/24 09:00 NM (Rec: 09/27/24 09:48 NM [id number]) Posture Evaluation Position Standing Head/C-Spine Posture C-Spine Flattened,Forward Head L-Spine Posture Decreased Lordosis Scapula Posture (R) Elevated Arm Posture (L) Internally Rotated,(R) Internally Rotated Pelvis Posture Posterior Tilted Palpation Assessment Location cervical spine Palpation Findings Soft Tissue Tightness,Muscle Guarding,Tenderness Palpation Details Tenderness along mid-cervical spine at midline spinous processes, none laterally or at upper cervical spine Tightness along L sided paraspinals > R sided, traps, levator scapula, scalenes, SCM , post cuff, rhomboids, lat, pecs PT-OP-K Range of Motion Start: 09/24/24 13:53 Freq: Status: Active Protocol: Document 11/02/24 08:18 [facility] (Rec: 11/02/24 13:03 [facility] [id number]) Cervical Spine Range of Motion Cervical Spine Active Degrees Flexion 45 Extension 38 Rotation Left 52 Rotation Right 48 Lateral Flexion Left 16 Lateral Flexion Right 14 Comments pain on R w/ flex; pain R w/R SB, L SB & rot pain L PT-OP-L Special Tests Start: 09/24/24 13:53 Freq: Status: Active Protocol: Document 09/29/24 09:48 NM (Rec: 09/29/24 10:38 NM [id number]) Special Tests Cervical Spine Special Tests Vertebral a. screen Test Results BP 137/75 mmHg, no symptoms w/ positional testing Comments heart/carotid ausc/palp WFL; cranial n intact Upper Limb Tension Test Test Results + Comments R median, ulnar; L ulnar, radial PT-OP-M Strength Start: 09/24/24 13:53 Freq: Status: Active Protocol: Document 09/27/24 09:00 NM (Rec: 09/27/24 11:05 NM [id number]) Cervical Spine Strength Cervical Spine Manual Muscle Testing Flexion (C1-2) 4 Good Extension 4 Good Rotation Left 4 Good Rotation Right 4 Good Lateral Flexion Left (C3) 4 Good Lateral Flexion Right (C3) 4 Good Shoulder Strength Shoulder Manual Muscle Testing Right Flexion 4 Good Abduction (C5) 4 Good Left Flexion 4 Good Abduction (C5) 4 Good Elbow/Forearm Strength Elbow and Forearm Manual Muscle Testing Right Flexion (C6) 4 Good Extension (C7) 4 Good Left Flexion (C6) 4 Good Extension (C7) 4 Good Wrist Strength Wrist Manual Muscle Testing Right Flexion (C7) 4 Good Extension (C6) 4 Good Comments Finger abd/thumb ext and add intact 4/5 Left Flexion (C7) 4 Good Extension (C6) 4 Good Comments Finger abd/thumb ext and add intact 4/5 PT-OP-Q Treatments Start: 09/24/24 13:53 Freq: Status: Active Protocol: Document 11/25/24 10:47 NM (Rec: 11/25/24 10:50 NM [id number]) Therapeutic Exercises Supine Exercises cervical self traction Supine Exercise Name c/ towel roll under head Reps/Minutes 2 min Comments prn chin tuck, feels slight traction, decreased tingle into LUE Sitting Exercises cervical spine isometrics Sitting Exercise Name 1. cervical retraction c/ band , 2. cervical retraction c/ rotation Side bilateral Resistance level 1 band at head, isometric Equipment Used PT hold band Reps/Minutes 1. 8, 2. 5 ea Comments verbal and tactile cues for correct form; improved w/ reps Standing Exercises snow angels Standing Exercise Name c/ band behind pt Side bilateral Resistance level 1 band Reps/Minutes 12 Comments shoulders in ER, no increased tingling cervical isometrics Standing Exercise Name rotation c/ retraction Side bilateral Equipment Used facing wall, hands supported on wall Reps/Minutes 8 ea Comments no increased tingling or other symptoms W's Standing Exercise Name c/ band Side bilateral Resistance level 1 band Reps/Minutes 12 Comments no increased tingling Manual Therapy Treatment Consent Patient gave verbal consent for manual Yes treatment Soft Tissue Mobilization cervical spine Body Location B paraspinals, SCM, scalenes, UT, LS Mobilization Type Myofascial Release,Rolling, Sustained Pressure,Other Intensity/Depth Moderate Body Position Sitting Comments No tenderness or trigger points today, less restriction L>R. Joint Mobilizations cervical spine Joint C3-5 Direction B lateral glides, upglides Grade II Body Position Supine Reps/Duration 2x10 ea Comments Monitored for pain. Less tingling into LUE but tender along L cervical spine near C3 -4 Manual Traction cervical spine Body Position Hooklying Reps/Duration 4x30 Comments reports less tingling into LUE PT-OP-T Assessment and Plan Start: 09/24/24 13:53 Freq: Status: Active Protocol: Document 11/25/24 10:47 NM (Rec: 11/25/24 10:50 NM [id number]) Physical Therapy Assessment Goals Three Impairment NDI Rust Proofer Goal (LTG) Pt will decrease NDI <15% impairment in order to demonstrate improve symptom management during ADLs/IADLs and quality of life 11/02-22% LTG Duration 10 weeks Two Impairment cervical spine AROM limited Short Term Goal (STG) Pt will improve B cervical lateral flexion > 20 deg in order to improve mobility during dressing 11/02-still limited 11/17/24: 15 deg 11/23/24: 20 deg R, 10 deg L pre-manual; STG Duration 6 weeks [facility] Goal (LTG) Pt will improve B cervical rotation to > 65 deg in order to improve visual scanning and compensations due to limited tilt 11/02-still limited 11/17/24: 60 deg B today 11/23/24: LTG Duration 10 weeks One Impairment not performing HEP Short Term Goal (STG) Pt will be educated on sitting and sleeping ergonomics for postural education and to improve symptom management 11/02-progressive edu STG Duration 5 weeks Rust Proofer Goal (LTG) Pt will be IND with HEP in order to maximize progression with PT and transition to maintenance program upon discharge from PT 11/02-progressive independence LTG Duration 10 weeks Assessment Summary Assessment Pt continues to respond best to manual treatment, especially traction and cervical spine mobilizations. Initiated upglides in addition to lateral glides. 60 deg B cervical spine rotation following manual treatment. Continued with periscapular strengthening. Able to progress to banded snow angels , which was tolerated than at wall. Educated on use of towel for traction at home to address tingling into LUE. Less tingling into LUE reported at end of session. Physical Therapy Plan Frequency and Duration Frequency of Treatment 2x/Week Duration of treatment (weeks) 10 Plan of Care Start Date 09/27/24 Plan of Care End Date 12/10/24 Therapeutic Interventions Therapeutic Interventions Canalithic Repositioning,Gait Training,Home Exercise Program ,Joint Mobilizations,Manual Therapy,Neuromuscular Re- education,Orthotic/Prosthetic Management,Patient/Caregiver Education,Self-Care/Home Management,Sensory Integration ,Soft Tissue Mobilization, Taping,Therapeutic Activities, Therapeutic Exercises Modalities Cold Pack/Ice Massage,Electric Stimulation,Hot Packs, Ultrasound Other Therapeutic Interventions TMD, cervicogenic dizziness trigger point treatment Next Visit Focus/Plan Next Note Type Treatment Note Next Visit Plan Needs HO for HEP for improved carryover. Assess caleb to snow john paul with band. add low row w / turns. Retrial banded retraction, TS ext and rot. Cont rot and 1-2 rib mobility. Cont thoracic ext mob, tmt with ball. Manual: cervical spine, periscapulars, SOR- trial seate
--- NOTE | 2024-11-29 09:03 | PT.OTN ---
Current Diagnoses Stiffness of other specified joint, not elsewhere classified (11/29/24) Radiculopathy, cervical region (11/29/24) Cervicalgia (11/29/24) Other lack of coordination (11/29/24) Weakness (11/29/24) Physical Therapy Treatment Note PT-OP-A Visit Information Start: 09/24/24 13:53 Freq: Status: Active Protocol: Document 11/29/24 08:18 NM (Rec: 11/29/24 09:02 NM [id number]) Out-Patient Physical Therapy Visit Information Visit Information Visit Type Treatment Note Visit Note KX after 19 visits Visit Start Time 08:18 Visit Stop Time 09:02 Visit Number 16 (8/ PN) PT-OP-B Current Condition Start: 09/24/24 13:53 Freq: Status: Active Protocol: Document 09/27/24 09:00 NM (Rec: 09/27/24 09:48 NM [id number]) Current Condition History of Current Condition Onset Date 6 months ago Current Complaints stiffness, pain, headaches History of Current Condition Pt presents with neck pain. No reports of weakness into hands or arms. He states that his neck is stiff all the time and tight in the back. He reprots that he gets a pain the radiates from the base of L neck to the L head (up), prn to the R side. He reports that he gets hellacious headaches; he has to close his eyes and do neck stretches. He reports most limitations with tilting head. He rides motor cycles, reports that his head moves into ext. Has been occuring for 6 months, no SUNIL . He reports that he has jaw pain with opening, on L side e .g. for a yawn. He reports no muscle spasms in neck but does get them in back. Has taken cloroxozone for his legs. He has had a fall > 1 year ago, when his leg gave out and hit head on freezer in back. He reports that he has numbness/ tingling into B hands, getting EMG in October; R>L. He states fingers 3-5, numbness/ tingling, present some of the time. Occurs when reaching up/over, resting of arm in dependent position (arm rest in chair). He reports depends on how resting his arm. 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 Headaches last usually several minutes to hours unless he takes ibuprofen (1/2 hr); wraps around back of head near crown, occasionally behind eyes. Pt denies nausea, vomiting; he does report dizziness with standing, leaning back to shut eyes; not present when rolls over with bed. Prior Treatments and Tests Cervical spine radiograph 2023: Impression- multilevel degenerative changes of cervical spine, severe at C3- C4. Treatment Goals Patient/Caregiver Goals unhurt and unstiff PT-OP-C Subjective Start: 09/24/24 13:53 Freq: Status: Active Protocol: Document 11/29/24 08:18 NM (Rec: 11/29/24 09:02 NM [id number]) OP-PT Subjective Patient Comments Patient Comments Pt reports had several instances over weekend where had spasms and tightness on R side, instead of left side ( lying down on couch, following putting up a gutter). MIL over weekend so very stressed. Still planning on having R wrist surgery on , so will d/c before then PT-OP-F Manual Assessment Start: 09/24/24 13:53 Freq: Status: Active Protocol: Document 09/29/24 09:48 NM (Rec: 09/29/24 10:38 NM [id number]) Manual Assessments Soft Tissue Assessment Soft Tissue Mobility Assessment Increased tightness along L > R cervical paraspinals, periscapulars. Joint Mobility Assessment Joint Mobility Assessment Decreased lateral gliding and mobility with PA mobilizations of cervical spine, decreased thoracic mobility. R GHJ clicking, non painful Other Manual Assessments Other Manual Assessments Slight deviation with opening mouth at L TMJ, clicking B (R> L) Cranial nerves: slight R deviation of tongue, no abnormalities with smell, sight, hearing. PT-OP-G Mobility & Gait Start: 09/24/24 13:53 Freq: Status: Active Protocol: Document 09/27/24 09:00 NM (Rec: 09/27/24 11:05 NM [id number]) OP Gait Assessment Gait Gait Assistance Required: Independent Distance (Feet) 150 Assistive Devices Assistive Device None Gait Deviations General Gait Pattern Antalgic,Decreased Stride Length Factors Limiting Gait Function Factors Limiting Gait Function Decreased Strength,Limited Range of Motion,Pain,Poor Balance Comments Gait Comments Decreased stance time on RLE PT-OP-H Neuro Start: 09/24/24 13:53 Freq: Status: Active Protocol: Document 09/29/24 09:48 NM (Rec: 09/29/24 10:38 NM [id number]) Sensation Evaluation Comments Summary Comments BUE equally intact to light touch sensation; mild decrease sharp/dull on C6-8 R>L PT-OP-J Posture/Palpation/Skin Start: 09/24/24 13:53 Freq: Status: Active Protocol: Document 09/27/24 09:00 NM (Rec: 09/27/24 09:48 NM [id number]) Posture Evaluation Position Standing Head/C-Spine Posture C-Spine Flattened,Forward Head L-Spine Posture Decreased Lordosis Scapula Posture (R) Elevated Arm Posture (L) Internally Rotated,(R) Internally Rotated Pelvis Posture Posterior Tilted Palpation Assessment Location cervical spine Palpation Findings Soft Tissue Tightness,Muscle Guarding,Tenderness Palpation Details Tenderness along mid-cervical spine at midline spinous processes, none laterally or at upper cervical spine Tightness along L sided paraspinals > R sided, traps, levator scapula, scalenes, SCM , post cuff, rhomboids, lat, pecs PT-OP-K Range of Motion Start: 09/24/24 13:53 Freq: Status: Active Protocol: Document 11/02/24 08:18 LR (Rec: 11/02/24 13:03 [facility] [id number]) Cervical Spine Range of Motion Cervical Spine Active Degrees Flexion 45 Extension 38 Rotation Left 52 Rotation Right 48 Lateral Flexion Left 16 Lateral Flexion Right 14 Comments pain on R w/ flex; pain R w/R SB, L SB & rot pain L PT-OP-L Special Tests Start: 09/24/24 13:53 Freq: Status: Active Protocol: Document 09/29/24 09:48 NM (Rec: 09/29/24 10:38 NM [id number]) Special Tests Cervical Spine Special Tests Vertebral a. screen Test Results BP 137/75 mmHg, no symptoms w/ positional testing Comments heart/carotid ausc/palp WFL; cranial n intact Upper Limb Tension Test Test Results + Comments R median, ulnar; L ulnar, radial PT-OP-M Strength Start: 09/24/24 13:53 Freq: Status: Active Protocol: Document 09/27/24 09:00 NM (Rec: 09/27/24 11:05 NM [id number]) Cervical Spine Strength Cervical Spine Manual Muscle Testing Flexion (C1-2) 4 Good Extension 4 Good Rotation Left 4 Good Rotation Right 4 Good Lateral Flexion Left (C3) 4 Good Lateral Flexion Right (C3) 4 Good Shoulder Strength Shoulder Manual Muscle Testing Right Flexion 4 Good Abduction (C5) 4 Good Left Flexion 4 Good Abduction (C5) 4 Good Elbow/Forearm Strength Elbow and Forearm Manual Muscle Testing Right Flexion (C6) 4 Good Extension (C7) 4 Good Left Flexion (C6) 4 Good Extension (C7) 4 Good Wrist Strength Wrist Manual Muscle Testing Right Flexion (C7) 4 Good Extension (C6) 4 Good Comments Finger abd/thumb ext and add intact 4/5 Left Flexion (C7) 4 Good Extension (C6) 4 Good Comments Finger abd/thumb ext and add intact 4/5 PT-OP-Q Treatments Start: 09/24/24 13:53 Freq: Status: Active Protocol: Document 11/29/24 08:18 NM (Rec: 11/29/24 09:02 NM [id number]) Therapeutic Exercises Supine Exercises overhead flexion Supine Exercise Name c/ lat stretch Side bilateral Equipment Used dowel c/ 2# ankle weight Reps/Minutes 15 Sitting Exercises thoracic mobility Sitting Exercise Name TS cat camel Side bilateral Reps/Minutes 15 Comments cued for less trunk flexion; very stiff today cervical spine stretches Sitting Exercise Name MWM w/ 1. UT, 2. LS; 3. LS stretch bilaterally Side bilateral Reps/Minutes 1./2. 5 ea, 3. 2x30 ea Comments cued set up Standing Exercises thread needle Standing Exercise Name partial ROM Side bilateral Equipment Used @ wall Reps/Minutes 10 ea, slight pause at end range Comments cued for form Manual Therapy Treatment Consent Patient gave verbal consent for manual Yes treatment Soft Tissue Mobilization cervical spine Body Location B paraspinals, SCM, scalenes, UT, LS Mobilization Type Instrument Assisted,Myofascial Release,Rolling,Sustained Pressure,Other Intensity/Depth Moderate Body Position Sitting Comments No tenderness or trigger points today, less restriction L>R. Increased hypertrophy of R cervicothoracic paraspinals , periscapulars compared to L side Joint Mobilizations thoracic spine Joint T3-6 Direction PA Grade III Body Position Sitting Comments Ext MWM. Monitored for pain. cervical spine Joint C3-5 Direction B lateral glides, upglides Grade III Body Position Supine Reps/Duration 2x10 ea Comments Monitored for pain. Less tingling into LUE, no tenderness today Manual Traction cervical spine Body Position Hooklying Reps/Duration 2x30 Comments reports less tingling into LUE PT-OP-T Assessment and Plan Start: 09/24/24 13:53 Freq: Status: Active Protocol: Document 11/29/24 08:18 NM (Rec: 11/29/24 09:02 NM [id number]) Physical Therapy Assessment Goals Three Impairment NDI 24/100 Propellant Charge Loader Goal (LTG) Pt will decrease NDI <15% impairment in order to demonstrate improve symptom management during ADLs/IADLs and quality of life 11/02-22% LTG Duration 10 weeks Two Impairment cervical spine AROM limited Short Term Goal (STG) Pt will improve B cervical lateral flexion > 20 deg in order to improve mobility during dressing 11/02-still limited 11/17/24: 15 deg 11/23/24: 20 deg R, 10 deg L pre-manual; STG Duration 6 weeks Skilled Nursing Goal (LTG) Pt will improve B cervical rotation to > 65 deg in order to improve visual scanning and compensations due to limited tilt 11/02-still limited 11/17/24: 60 deg B today 11/23/24: LTG Duration 10 weeks One Impairment not performing HEP Short Term Goal (STG) Pt will be educated on sitting and sleeping ergonomics for postural education and to improve symptom management 11/02-progressive edu STG Duration 5 weeks Skilled Nursing Goal (LTG) Pt will be IND with HEP in order to maximize progression with PT and transition to maintenance program upon discharge from PT 11/02-progressive independence LTG Duration 10 weeks Assessment Summary Assessment Pt has increased soft tissue restrictions on R side of cervicothoracic spine today compared to in previous sessions. Has 55 deg L rot, 65 deg R rot; 35 deg B lateral flexion at end of session. Continues to have less tingling intensity into LUE but not resolved with PT. Very stiff cervicothoracic spine today compared to previous sessions, increased postural kyphosis, affecting cervical spine muscle restrictions. PT still providing cueing for correct execution, set up, and to limit compensations due to restrictions. Pt would continue to benefit from skilled PT for increased flexibility and pain management. Physical Therapy Plan Frequency and Duration Frequency of Treatment 2x/Week Duration of treatment (weeks) 10 Plan of Care Start Date 09/27/24 Plan of Care End Date 12/10/24 Therapeutic Interventions Therapeutic Interventions Canalithic Repositioning,Gait Training,Home Exercise Program ,Joint Mobilizations,Manual Therapy,Neuromuscular Re- education,Orthotic/Prosthetic Management,Patient/Caregiver Education,Self-Care/Home Management,Sensory Integration ,Soft Tissue Mobilization, Taping,Therapeutic Activities, Therapeutic Exercises Modalities Cold Pack/Ice Massage,Electric Stimulation,Hot Packs, Ultrasound Other Therapeutic Interventions TMD, cervicogenic dizziness trigger point treatment Next Visit Focus/Plan Next Note Type Treatment Note Next Visit Plan Needs HO for HEP for improved carryover. Wrist stertching- trial along c/ nerve glides. Assess caleb to snow john paul with band. add low row w/ turns. Retrial banded retraction, TS ext and rot. Cont rot and 1-2 rib mobility. Cont thoracic ext mob, tmt with ball. Manual: cervical spine, periscapulars, SOR- trial seate
--- NOTE | 2024-12-01 08:58 | PT.OTN ---
Current Diagnoses Stiffness of other specified joint, not elsewhere classified (12/01/24) Radiculopathy, cervical region (12/01/24) Cervicalgia (12/01/24) Other lack of coordination (12/01/24) Weakness (12/01/24) Physical Therapy Treatment Note PT-OP-A Visit Information Start: 09/24/24 13:53 Freq: Status: Active Protocol: Document 12/01/24 08:13 NM (Rec: 12/01/24 08:58 NM [id number]) Out-Patient Physical Therapy Visit Information Visit Information Visit Type Treatment Note Visit Note KX after 19 visits Visit Start Time 08:16 Visit Stop Time 08:56 Visit Number 17 (07/06 PN) Evaluation Information Evaluation Date 09/27/24 Precautions Precautions fall risk, slow positional changes PT-OP-B Current Condition Start: 09/24/24 13:53 Freq: Status: Active Protocol: Document 09/27/24 09:00 NM (Rec: 09/27/24 09:48 NM [id number]) Current Condition History of Current Condition Onset Date 6 months ago Current Complaints stiffness, pain, headaches History of Current Condition Pt presents with neck pain. No reports of weakness into hands or arms. He states that his neck is stiff all the time and tight in the back. He reprots that he gets a pain the radiates from the base of L neck to the L head (up), prn to the R side. He reports that he gets hellacious headaches; he has to close his eyes and do neck stretches. He reports most limitations with tilting head. He rides motor cycles, reports that his head moves into ext. Has been occuring for 6 months, no SUNIL . He reports that he has jaw pain with opening, on L side e .g. for a yawn. He reports no muscle spasms in neck but does get them in back. Has taken cloroxozone for his legs. He has had a fall > 1 year ago, when his leg gave out and hit head on freezer in back. He reports that he has numbness/ tingling into B hands, getting EMG in October; R>L. He states fingers 3-5, numbness/ tingling, present some of the time. Occurs when reaching up/over, resting of arm in dependent position (arm rest in chair). He reports depends on how resting his arm. 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 Headaches last usually several minutes to hours unless he takes ibuprofen (1/2 hr); wraps around back of head near crown, occasionally behind eyes. Pt denies nausea, vomiting; he does report dizziness with standing, leaning back to shut eyes; not present when rolls over with bed. Prior Treatments and Tests Cervical spine radiograph 2023: Impression- multilevel degenerative changes of cervical spine, severe at C3- C4. Treatment Goals Patient/Caregiver Goals unhurt and unstiff PT-OP-C Subjective Start: 09/24/24 13:53 Freq: Status: Active Protocol: Document 12/01/24 08:13 NM (Rec: 12/01/24 08:58 NM [id number]) OP-PT Subjective Patient Comments Patient Comments Pt reports that he has more R sided tightness today. He reports that he feels like he can move his neck better. He reports less crepitus and pain . He ordered two neck stretchers (self traction with self pump, pillow with support). Reports more suboccipital tenderness today. Has been moving couches and other medical equipment since , helping ready home. PT-OP-F Manual Assessment Start: 09/24/24 13:53 Freq: Status: Active Protocol: Document 09/29/24 09:48 NM (Rec: 09/29/24 10:38 NM [id number]) Manual Assessments Soft Tissue Assessment Soft Tissue Mobility Assessment Increased tightness along L > R cervical paraspinals, periscapulars. Joint Mobility Assessment Joint Mobility Assessment Decreased lateral gliding and mobility with PA mobilizations of cervical spine, decreased thoracic mobility. R GHJ clicking, non painful Other Manual Assessments Other Manual Assessments Slight deviation with opening mouth at L TMJ, clicking B (R> L) Cranial nerves: slight R deviation of tongue, no abnormalities with smell, sight, hearing. PT-OP-G Mobility & Gait Start: 09/24/24 13:53 Freq: Status: Active Protocol: Document 09/27/24 09:00 NM (Rec: 09/27/24 11:05 NM [id number]) OP Gait Assessment Gait Gait Assistance Required: Independent Distance (Feet) 150 Assistive Devices Assistive Device None Gait Deviations General Gait Pattern Antalgic,Decreased Stride Length Factors Limiting Gait Function Factors Limiting Gait Function Decreased Strength,Limited Range of Motion,Pain,Poor Balance Comments Gait Comments Decreased stance time on RLE PT-OP-H Neuro Start: 09/24/24 13:53 Freq: Status: Active Protocol: Document 09/29/24 09:48 NM (Rec: 09/29/24 10:38 NM [id number]) Sensation Evaluation Comments Summary Comments BUE equally intact to light touch sensation; mild decrease sharp/dull on C6-8 R>L PT-OP-J Posture/Palpation/Skin Start: 09/24/24 13:53 Freq: Status: Active Protocol: Document 09/27/24 09:00 NM (Rec: 09/27/24 09:48 NM [id number]) Posture Evaluation Position Standing Head/C-Spine Posture C-Spine Flattened,Forward Head L-Spine Posture Decreased Lordosis Scapula Posture (R) Elevated Arm Posture (L) Internally Rotated,(R) Internally Rotated Pelvis Posture Posterior Tilted Palpation Assessment Location cervical spine Palpation Findings Soft Tissue Tightness,Muscle Guarding,Tenderness Palpation Details Tenderness along mid-cervical spine at midline spinous processes, none laterally or at upper cervical spine Tightness along L sided paraspinals > R sided, traps, levator scapula, scalenes, SCM , post cuff, rhomboids, lat, pecs PT-OP-K Range of Motion Start: 09/24/24 13:53 Freq: Status: Active Protocol: Document 11/02/24 08:18 [facility] (Rec: 11/02/24 13:03 [facility] [id number]) Cervical Spine Range of Motion Cervical Spine Active Degrees Flexion 45 Extension 38 Rotation Left 52 Rotation Right 48 Lateral Flexion Left 16 Lateral Flexion Right 14 Comments pain on R w/ flex; pain R w/R SB, L SB & rot pain L PT-OP-L Special Tests Start: 09/24/24 13:53 Freq: Status: Active Protocol: Document 09/29/24 09:48 NM (Rec: 09/29/24 10:38 NM [id number]) Special Tests Cervical Spine Special Tests Vertebral a. screen Test Results BP 137/75 mmHg, no symptoms w/ positional testing Comments heart/carotid ausc/palp WFL; cranial n intact Upper Limb Tension Test Test Results + Comments R median, ulnar; L ulnar, radial PT-OP-M Strength Start: 09/24/24 13:53 Freq: Status: Active Protocol: Document 09/27/24 09:00 NM (Rec: 09/27/24 11:05 NM [id number]) Cervical Spine Strength Cervical Spine Manual Muscle Testing Flexion (C1-2) 4 Good Extension 4 Good Rotation Left 4 Good Rotation Right 4 Good Lateral Flexion Left (C3) 4 Good Lateral Flexion Right (C3) 4 Good Shoulder Strength Shoulder Manual Muscle Testing Right Flexion 4 Good Abduction (C5) 4 Good Left Flexion 4 Good Abduction (C5) 4 Good Elbow/Forearm Strength Elbow and Forearm Manual Muscle Testing Right Flexion (C6) 4 Good Extension (C7) 4 Good Left Flexion (C6) 4 Good Extension (C7) 4 Good Wrist Strength Wrist Manual Muscle Testing Right Flexion (C7) 4 Good Extension (C6) 4 Good Comments Finger abd/thumb ext and add intact 4/5 Left Flexion (C7) 4 Good Extension (C6) 4 Good Comments Finger abd/thumb ext and add intact 4/5 PT-OP-Q Treatments Start: 09/24/24 13:53 Freq: Status: Active Protocol: Document 12/01/24 08:13 NM (Rec: 12/01/24 08:58 NM [id number]) Therapeutic Exercises Supine Exercises chest openers Supine Exercise Name 1. HABD, 2. diagonals Side bilateral Resistance level 1 band Equipment Used hooklying Reps/Minutes 15 ea Comments cued form, cervical posture snow john paul Side bilateral Resistance AROM Equipment Used hooklying Reps/Minutes 10 Comments no increase symptoms; limited ROM d/t kyphosis, pec length overhead flexion Supine Exercise Name flexion + ER Side bilateral Resistance level 1 band Reps/Minutes 10 Sitting Exercises wrist stretches Sitting Exercise Name 1. flex, 2. ext Side bilateral Equipment Used elbows extended Reps/Minutes 60 ea Comments no pain or increase symptoms; R more restricted Standing Exercises cervical rotation Standing Exercise Name c/ retraction Side bilateral Equipment Used ball behind head at wall Reps/Minutes 8 ea Extension Standing Exercise Name TS ext Side bilateral Equipment Used small kickball behind back; arms behind head Reps/Minutes 10 Manual Therapy Treatment Consent Patient gave verbal consent for manual Yes treatment Soft Tissue Mobilization cervical spine Body Location B paraspinals, SCM, scalenes, UT, LS Mobilization Type Instrument Assisted,Myofascial Release,Rolling,Sustained Pressure,Other Intensity/Depth Moderate Body Position Sitting Comments No tenderness or trigger points today, less restriction L>R. Increased hypertrophy of R cervicothoracic paraspinals , periscapulars compared to L side Joint Mobilizations cervical spine Joint C3-5 Direction B lateral glides, upglides Grade III Body Position Supine Reps/Duration 2x10 ea Comments Monitored for pain. Mobilization with movement into rotation B and lateral flexion B Manual Techniques CS Type LS and trap stretch, shoulder depression Body Position Hooklying Reps/Duration 2x30 ea Comments monitored for pain; good stretch felt, no increase in radicular symptoms Self-Care/Home Management Treatment Education Other Education Educated on use of self cervical traction to avoid increase in radicular symptoms , dizziness, lightheadedness, etc. Recommend start with low time and traction pressure, then progress if tolerate well PT-OP-T Assessment and Plan Start: 09/24/24 13:53 Freq: Status: Active Protocol: Document 12/01/24 08:13 NM (Rec: 12/01/24 08:58 NM [id number]) Physical Therapy Assessment Goals Three Impairment NDI 24/100 Building Maintenance Superintendent Goal (LTG) Pt will decrease NDI <15% impairment in order to demonstrate improve symptom management during ADLs/IADLs and quality of life 11/02-22% LTG Duration 10 weeks Two Impairment cervical spine AROM limited Short Term Goal (STG) Pt will improve B cervical lateral flexion > 20 deg in order to improve mobility during dressing 11/02-still limited 11/17/24: 15 deg 11/23/24: 20 deg R, 10 deg L pre-manual 12/01/24: 20 deg STG Duration 6 weeks MET Building Maintenance Superintendent Goal (LTG) Pt will improve B cervical rotation to > 65 deg in order to improve visual scanning and compensations due to limited tilt 11/02-still limited 11/17/24: 60 deg B today 12/01/24: 65 deg R, 55 deg L LTG Duration 10 weeks One Impairment not performing HEP Short Term Goal (STG) Pt will be educated on sitting and sleeping ergonomics for postural education and to improve symptom management 11/02-progressive edu STG Duration 5 weeks Building Maintenance Superintendent Goal (LTG) Pt will be IND with HEP in order to maximize progression with PT and transition to maintenance program upon discharge from PT 11/02-progressive independence LTG Duration 10 weeks Assessment Summary Assessment Continues to have restrictions on R side of cervical spine and suboccipitals; improved with manual treatment. Pt still has B radicular symptoms present but reports that overall, has lessened intensity. Trialed banded resisted periscapular activation and chest opening in supine to control for compensations; cueing needed for cervical posture and correct execution. R rotation consistently 65 deg, L rot 55 deg; lateral flexion today B 20 deg. Pt would continue to benefit from skilled PT to decrease pain and to improve cervical rotation for visual scanning while riding motorocycle. Physical Therapy Plan Frequency and Duration Frequency of Treatment 2x/Week Duration of treatment (weeks) 10 Plan of Care Start Date 09/27/24 Plan of Care End Date 12/10/24 Therapeutic Interventions Therapeutic Interventions Canalithic Repositioning,Gait Training,Home Exercise Program ,Joint Mobilizations,Manual Therapy,Neuromuscular Re- education,Orthotic/Prosthetic Management,Patient/Caregiver Education,Self-Care/Home Management,Sensory Integration ,Soft Tissue Mobilization, Taping,Therapeutic Activities, Therapeutic Exercises Modalities Cold Pack/Ice Massage,Electric Stimulation,Hot Packs, Ultrasound Other Therapeutic Interventions TMD, cervicogenic dizziness trigger point treatment Next Visit Focus/Plan Next Note Type Progress Note Next Visit Plan Needs HO for HEP for improved carryover. Extension, rotation , CS mobility Manual: cervical spine, periscapulars, SOR- trial seate
--- NOTE | 2024-12-06 12:10 | PT.OTN ---
Current Diagnoses Stiffness of other specified joint, not elsewhere classified (12/06/24) Radiculopathy, cervical region (12/06/24) Cervicalgia (12/06/24) Other lack of coordination (12/06/24) Weakness (12/06/24) Physical Therapy Treatment Note PT-OP-A Visit Information Start: 09/24/24 13:53 Freq: Status: Active Protocol: Document 12/06/24 08:18 NM (Rec: 12/06/24 09:46 NM [id number]) Out-Patient Physical Therapy Visit Information Visit Information Visit Type Treatment Note Visit Note KX after 19 visits Visit Start Time 08:18 Visit Stop Time 08:58 Visit Number 18 Evaluation Information Evaluation Date 09/27/24 Precautions Precautions fall risk, slow positional changes PT-OP-B Current Condition Start: 09/24/24 13:53 Freq: Status: Active Protocol: Document 09/27/24 09:00 NM (Rec: 09/27/24 09:48 NM [id number]) Current Condition History of Current Condition Onset Date 6 months ago Current Complaints stiffness, pain, headaches History of Current Condition Pt presents with neck pain. No reports of weakness into hands or arms. He states that his neck is stiff all the time and tight in the back. He reprots that he gets a pain the radiates from the base of L neck to the L head (up), prn to the R side. He reports that he gets hellacious headaches; he has to close his eyes and do neck stretches. He reports most limitations with tilting head. He rides motor cycles, reports that his head moves into ext. Has been occuring for 6 months, no SUNIL . He reports that he has jaw pain with opening, on L side e .g. for a yawn. He reports no muscle spasms in neck but does get them in back. Has taken cloroxozone for his legs. He has had a fall > 1 year ago, when his leg gave out and hit head on freezer in back. He reports that he has numbness/ tingling into B hands, getting EMG in October; R>L. He states fingers 3-5, numbness/ tingling, present some of the time. Occurs when reaching up/over, resting of arm in dependent position (arm rest in chair). He reports depends on how resting his arm. 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 Headaches last usually several minutes to hours unless he takes ibuprofen (1/2 hr); wraps around back of head near crown, occasionally behind eyes. Pt denies nausea, vomiting; he does report dizziness with standing, leaning back to shut eyes; not present when rolls over with bed. Prior Treatments and Tests Cervical spine radiograph 2023: Impression- multilevel degenerative changes of cervical spine, severe at C3- C4. Treatment Goals Patient/Caregiver Goals unhurt and unstiff PT-OP-C Subjective Start: 09/24/24 13:53 Freq: Status: Active Protocol: Document 12/06/24 08:18 NM (Rec: 12/06/24 09:46 NM [id number]) OP-PT Subjective Patient Comments Patient Comments Pt reports no changes since last session. He tried his neck self traction, reports significantly less stiffness in morning. He reports that he still has neck tightness in general. Reports does HEP a couple times a week but not as much as I should. PT-OP-F Manual Assessment Start: 09/24/24 13:53 Freq: Status: Active Protocol: Document 09/29/24 09:48 NM (Rec: 09/29/24 10:38 NM [id number]) Manual Assessments Soft Tissue Assessment Soft Tissue Mobility Assessment Increased tightness along L > R cervical paraspinals, periscapulars. Joint Mobility Assessment Joint Mobility Assessment Decreased lateral gliding and mobility with PA mobilizations of cervical spine, decreased thoracic mobility. R GHJ clicking, non painful Other Manual Assessments Other Manual Assessments Slight deviation with opening mouth at L TMJ, clicking B (R> L) Cranial nerves: slight R deviation of tongue, no abnormalities with smell, sight, hearing. PT-OP-G Mobility & Gait Start: 09/24/24 13:53 Freq: Status: Active Protocol: Document 09/27/24 09:00 NM (Rec: 09/27/24 11:05 NM [id number]) OP Gait Assessment Gait Gait Assistance Required: Independent Distance (Feet) 150 Assistive Devices Assistive Device None Gait Deviations General Gait Pattern Antalgic,Decreased Stride Length Factors Limiting Gait Function Factors Limiting Gait Function Decreased Strength,Limited Range of Motion,Pain,Poor Balance Comments Gait Comments Decreased stance time on RLE PT-OP-H Neuro Start: 09/24/24 13:53 Freq: Status: Active Protocol: Document 09/29/24 09:48 NM (Rec: 09/29/24 10:38 NM [id number]) Sensation Evaluation Comments Summary Comments BUE equally intact to light touch sensation; mild decrease sharp/dull on C6-8 R>L PT-OP-J Posture/Palpation/Skin Start: 09/24/24 13:53 Freq: Status: Active Protocol: Document 09/27/24 09:00 NM (Rec: 09/27/24 09:48 NM [id number]) Posture Evaluation Position Standing Head/C-Spine Posture C-Spine Flattened,Forward Head L-Spine Posture Decreased Lordosis Scapula Posture (R) Elevated Arm Posture (L) Internally Rotated,(R) Internally Rotated Pelvis Posture Posterior Tilted Palpation Assessment Location cervical spine Palpation Findings Soft Tissue Tightness,Muscle Guarding,Tenderness Palpation Details Tenderness along mid-cervical spine at midline spinous processes, none laterally or at upper cervical spine Tightness along L sided paraspinals > R sided, traps, levator scapula, scalenes, SCM , post cuff, rhomboids, lat, pecs PT-OP-K Range of Motion Start: 09/24/24 13:53 Freq: Status: Active Protocol: Document 12/06/24 08:18 NM (Rec: 12/06/24 09:46 NM [id number]) Cervical Spine Range of Motion Cervical Spine Active Degrees Flexion 45 Extension 38 Rotation Left 60 Rotation Right 70 Lateral Flexion Left 20 Lateral Flexion Right 20 Comments pain on R w/ flex; pain R w/R SB, L SB & rot pain L PT-OP-L Special Tests Start: 09/24/24 13:53 Freq: Status: Active Protocol: Document 09/29/24 09:48 NM (Rec: 09/29/24 10:38 NM [id number]) Special Tests Cervical Spine Special Tests Vertebral a. screen Test Results BP 137/75 mmHg, no symptoms w/ positional testing Comments heart/carotid ausc/palp WFL; cranial n intact Upper Limb Tension Test Test Results + Comments R median, ulnar; L ulnar, radial PT-OP-M Strength Start: 09/24/24 13:53 Freq: Status: Active Protocol: Document 09/27/24 09:00 NM (Rec: 09/27/24 11:05 NM [id number]) Cervical Spine Strength Cervical Spine Manual Muscle Testing Flexion (C1-2) 4 Good Extension 4 Good Rotation Left 4 Good Rotation Right 4 Good Lateral Flexion Left (C3) 4 Good Lateral Flexion Right (C3) 4 Good Shoulder Strength Shoulder Manual Muscle Testing Right Flexion 4 Good Abduction (C5) 4 Good Left Flexion 4 Good Abduction (C5) 4 Good Elbow/Forearm Strength Elbow and Forearm Manual Muscle Testing Right Flexion (C6) 4 Good Extension (C7) 4 Good Left Flexion (C6) 4 Good Extension (C7) 4 Good Wrist Strength Wrist Manual Muscle Testing Right Flexion (C7) 4 Good Extension (C6) 4 Good Comments Finger abd/thumb ext and add intact 4/5 Left Flexion (C7) 4 Good Extension (C6) 4 Good Comments Finger abd/thumb ext and add intact 4/5 PT-OP-Q Treatments Start: 09/24/24 13:53 Freq: Status: Active Protocol: Document 12/06/24 08:18 NM (Rec: 12/06/24 09:46 NM [id number]) Therapeutic Exercises Standing Exercises rows Standing Exercise Name 1. low row, 2. mid row Side bilateral Resistance level 5 purple band Reps/Minutes 10x3 ea Extension Standing Exercise Name TS ext: 1. walkups, 2. ext c/ ball at back Side bilateral Equipment Used elbow walk ups Reps/Minutes 1. 5, 2. 10 pec stretch Standing Exercise Name Doorway: 1. low pec, 2. 90/90, 3. high pec Side bilateral Equipment Used c/ step through at door Reps/Minutes 60 ea Other Exercises 1/2 open book Other Exercise Name 1/2 kneel: added to HEP Side bilateral Equipment Used kneel on pad, side to wall Reps/Minutes 5 reps Comments recommend s/l open book d/t challenge w/ floor transfers Manual Therapy Treatment Consent Patient gave verbal consent for manual Yes treatment Soft Tissue Mobilization cervical spine Body Location B paraspinals, SCM, scalenes, UT, LS Mobilization Type Instrument Assisted,Myofascial Release,Rolling,Sustained Pressure,Other Intensity/Depth Moderate Comments Sitting and hooklying. No tenderness. Tightness still present but no trigger points Manual Traction cervical spine Details c/ CS retraction Body Position Hooklying Reps/Duration 4x30 Comments reports less tingling into LUE Manual Techniques CS Type LS and trap stretch, shoulder depression Body Position Hooklying Reps/Duration 2x30 ea Comments monitored for pain; good stretch felt, no increase in radicular symptoms Self-Care/Home Management Treatment Education Other Education Pt educated not to use traction or perform HEP until cleared post-op by surgeon PT-OP-T Assessment and Plan Start: 09/24/24 13:53 Freq: Status: Active Protocol: Document 12/06/24 08:18 NM (Rec: 12/06/24 09:46 NM [id number]) Physical Therapy Assessment Goals Three Impairment NDI 24/100 Jail Goal (LTG) Pt will decrease NDI <15% impairment in order to demonstrate improve symptom management during ADLs/IADLs and quality of life 11/02-22% 12/06/24: 20% LTG Duration 10 weeks NOT MET but IMPROVED Two Impairment cervical spine AROM limited Short Term Goal (STG) Pt will improve B cervical lateral flexion > 20 deg in order to improve mobility during dressing 11/02-still limited 11/17/24: 15 deg 11/23/24: 20 deg R, 10 deg L pre-manual 12/01/24: 20 deg 12/06/24: 20 deg ea, start of session STG Duration 6 weeks MET Job Boss Goal (LTG) Pt will improve B cervical rotation to > 65 deg in order to improve visual scanning and compensations due to limited tilt 11/02-still limited 11/17/24: 60 deg B today 12/01/24: 65 deg R, 55 deg L 12/06/24: 60 L, 70 R at start of session LTG Duration 10 weeks PARTIALLY MET One Impairment not performing HEP Short Term Goal (STG) Pt will be educated on sitting and sleeping ergonomics for postural education and to improve symptom management 11/02-progressive edu STG Duration 5 weeks Jail Goal (LTG) Pt will be IND with HEP in order to maximize progression with PT and transition to maintenance program upon discharge from PT 11/02-progressive independence 12/06: partially compliant with HEP LTG Duration 10 weeks PARTIALLY MET Assessment Summary Assessment Pt tolerated session well. Demos improvement in cervical spine ROM at start of session, but still limited overall, L> R. Pt continues to have decrease in radicular symptoms intensity. Session emphasis on maintenance HEP as pt planning to discharge today due to upcoming surgery. Emphasis on improving thoracic extension and rotation, cervical spine and trunk strength, in addition to increased trunk muscle length. Cueing needed for correct execution due to partial compliance with HEP. Recommended open book vs half kneel thoracic rotation due to increased discomfort with floor transfers. Physical Therapy Plan Frequency and Duration Frequency of Treatment 2x/Week Duration of treatment (weeks) 10 Plan of Care Start Date 09/27/24 Plan of Care End Date 12/10/24 Therapeutic Interventions Therapeutic Interventions Canalithic Repositioning,Gait Training,Home Exercise Program ,Joint Mobilizations,Manual Therapy,Neuromuscular Re- education,Orthotic/Prosthetic Management,Patient/Caregiver Education,Self-Care/Home Management,Sensory Integration ,Soft Tissue Mobilization, Taping,Therapeutic Activities, Therapeutic Exercises Modalities Cold Pack/Ice Massage,Electric Stimulation,Hot Packs, Ultrasound Other Therapeutic Interventions TMD, cervicogenic dizziness trigger point treatment Discharge Physical Therapy Discharge Reasons Plateau in Progress Discharge Comments Pt has met max PT benefit at this time. Progressed toward PT goals, showing improvement but did not meet goals. Demos improvements in cervical spine ROM and radicular symptom management. PT provided pt with condensed HEP for maintenance of symptom management. However, only partially compliant with HEP so minimial carryover between sessions. Pt planning to have surgery on R wrist in November , will need new referral in future to return. PT educated pt on not performing maintenance HEP post op until cleared by surgeon. PT also educated pt on returning to PCP or surgeon if symptoms return, change, or worsen. Pt verbalizes understanding and discharged to maintenance program until surgery Next Visit Focus/Plan Next Note Type Discharge Summary Next Visit Plan discharge from PT
== END 2024-12-09 15:16 | disposition home or self-care (01) ==
LOC: PHYS 08:15
PROVIDERS: Family Provider Internal Medicine; PCP Internal Medicine; Referring Provider Internal Medicine; Visit Provider Internal Medicine
DX: M54.2 Cervicalgia (principal); R53.1 Weakness; M25.69 Stiffness of other specified joint, not elsewhere classified; R27.8 Other lack of coordination; M54.12 Radiculopathy, cervical region
CPT/HCPCS: 97110; 97140; 97161

== ENCOUNTER → 2025-01-12 10:02 | Outpatient (CLI) | payer MEDICARE, OTHER, SELFPAY ==
[2025-01-12 10:54] LABS: Alanine Aminotransferase 87 IU/L (<50); Albumin 4.9 g/dL (3.5-5.0); Alkaline Phosphatase 44 U/L (38-126); Aspartate Aminotransferase 80 IU/L (17-59); Bilirubin Total 0.7 mg/dL (0.2-1.3); Blood Urea Nitrogen 19 mg/dL (9-20); Calcium 9.6 mg/dL (8.4-10.2); Carbon Dioxide 28 mmol/L (22-32); Chloride 100 mmol/L (98-107); Cholesterol 236 mg/dL (140-199); Estimated Glomerular Filt Rate > 60 mL/min (>60); Globulin 2.5 g/dL (1.7-4.1); Glucose 186 mg/dL (80-110); HDL Cholesterol 32 mg/dL (40-60); HEMOLYSIS < 15 (0-50); Potassium 4.9 mmol/L (3.4-5.1); Sodium 138 mmol/L (137-145); Total Protein 7.4 g/dL (6.3-8.2); Triglycerides 412 mg/dL (35-150)
[2025-01-12 11:05] LABS: LDL Cholesterol Direct 137 mg/dL (<100)
[2025-01-12 11:25] LABS: Prostate Specific Antigen Scrn 2.38 ng/mL (0.1-4.0)
== END ==
PROVIDERS: Family Provider Internal Medicine; PCP Internal Medicine; Referring Provider Internal Medicine; Visit Provider Internal Medicine
DX: E11.9 Type 2 diabetes mellitus without complications (principal); N18.30 Chronic kidney disease, stage 3 unspecified; Z12.5 Encounter for screening for malignant neoplasm of prostate; R94.5 Abnormal results of liver function studies; E78.2 Mixed hyperlipidemia
CPT/HCPCS: 36415; 80053; 80061; 83036; 83721; G0103

== ENCOUNTER → 2025-01-17 10:29 | Outpatient (CLI) | payer MEDICARE, OTHER, SELFPAY ==
--- NOTE | 2025-01-17 10:30 | DI.RAD.S_ITS ---
PROCEDURE: XR SHOULDER LT MIN 2V INDICATIONS: shoulder pain TECHNIQUE: 3 views of the shoulder were acquired. COMPARISON: None. FINDINGS: Bones: No fractures or dislocations. The humeral head is moderately high-riding and there is moderate glenohumeral joint space narrowing with marginal osteophytosis. Moderate hypertrophic acromioclavicular arthropathy and joint space narrowing noted. No suspicious bony lesions. Visualized ribs appear intact. Soft tissues: No suspicious soft tissue calcifications. IMPRESSION: Degenerative change of the glenohumeral and acromioclavicular joints without evidence of acute osseous abnormality. Dictated by: Amado Wilkins M.D. on 01/18/2025 at 3:38 Approved by: Amado Wilkins M.D. on 01/18/2025 at 3:39
== END ==
PROVIDERS: Family Provider Internal Medicine; PCP Internal Medicine; Referring Provider Internal Medicine; Visit Provider Internal Medicine
DX: M25.512 Pain in left shoulder (principal)
CPT/HCPCS: 73030

== ENCOUNTER → 2025-03-24 09:22 | Outpatient (CLI) | payer MEDICARE, OTHER, SELFPAY ==
--- NOTE | 2025-03-24 09:23 | DI.MRI.S_ITS ---
PROCEDURE: MR LOWER LEG LT WO CON COMPARISON: None. INDICATION: left leg pain, unable to bear weight on left leg TECHNIQUE: Multiplanar, multisequence images of the left lower extremity from the knee to the ankle were obtained without the use of intravenous contrast. FINDINGS: Bone: The marrow signal is within normal limits. There is no pathologic fracture or dislocation. Joint: There is no significant knee or tibiotalar joint effusion. Muscle: Overall muscle bulk is preserved without denervation change. Tendon: The visualized flexor and extensor tendons are within normal limits. Nerve: The popliteal, common peroneal, and lateral sural cutaneous nerves are normal in signal and caliber. Vessels: The dominant popliteal flow voids are preserved. Lymph node: There is no popliteal lymphadenopathy. Other: No other acute abnormality. IMPRESSION: No acute MR abnormality of the left tibia/fibula. Dictated by: Amado Sun M.D. on 03/24/2025 at 15:08 Approved by: Amado Sun M.D. on 03/24/2025 at 15:13
== END ==
LOC: MRI 09:22
PROVIDERS: Family Provider Internal Medicine; PCP Internal Medicine; Referring Provider Internal Medicine; Visit Provider Internal Medicine
DX: M79.605 Pain in left leg (principal); M54.16 Radiculopathy, lumbar region; R26.89 Other abnormalities of gait and mobility
CPT/HCPCS: 73718

== ENCOUNTER → 2025-03-30 12:10 | Outpatient (CLI) | payer MEDICARE, OTHER, SELFPAY ==
[2025-03-30 12:42] LABS: Add Manual Diff / Slide Review NO; Basophils Absolute Auto 100 /uL (0-100); Basophils Percent Auto 0.9 % (0-2); Eosinophils Absolute Auto 300 /uL (0-450); Eosinophils Percent Auto 3.3 % (2-4); Hematocrit 45.1 % (41-53); Hemoglobin 15.3 g/dL (13.5-17.5); Lymphocytes Absolute Auto 2800 /uL (1100-4500); Lymphocytes Percent Auto 27.9 % (25-40); Mean Corpuscular HGB Conc 33.9 % (30-36); Mean Corpuscular Hemoglobin 29.8 PG (26-34); Mean Corpuscular Volume 87.8 fL (80-100); Monocytes Absolute Auto 500 /uL (0-900); Monocytes Percent Auto 4.7 % (3-14); Neutrophils Absolute Auto 6300 /uL (1500-7000); Neutrophils Percent Auto 63.2 % (50-75); Platelet Count 244 X10^3/uL (150-400); Red Blood Cell Count 5.13 X10^6/uL (4.5-5.9); Red Cell Distribution Width 14.1 % (11.6-14.8); White Blood Cell Count 9.9 X10^3/uL (4.5-11.0)
[2025-03-30 13:32] LABS: Erythrocyte Sedimentation Rate 3 MM/HR (0-15)
[2025-03-30 14:17] LABS: C-Reactive Protein Quant < 0.5 mg/dL (<1.0)
== END ==
PROVIDERS: Family Provider Internal Medicine; PCP Internal Medicine; Referring Provider Orthopaedic Surgery; Visit Provider Orthopaedic Surgery
DX: M79.652 Pain in left thigh (principal)
CPT/HCPCS: 85025; 85651; 86140

== ENCOUNTER → 2025-03-31 08:42 | Outpatient (CLI) | payer MEDICARE, OTHER, SELFPAY ==
--- NOTE | 2025-03-31 08:43 | DI.CT.S_ITS ---
PROCEDURE: CT HIP LEFT WITHOUT CON INDICATIONS: Concern for left hip aseptic loosening TECHNIQUE: Noncontrast 3 mm axial sections acquired through the bony pelvis. Additional 3 mm axial sections acquired through the symptomatic hip joint, with coronal and sagittal reformats. COMPARISON: None. FINDINGS: Image quality: Diagnostic. Bones: Patient is status post bilateral total hip arthroplasty. Surgical prosthesis are seen in their expected positions. No evidence of hardware loosening or failure. Pelvic ring is intact. No acute fracture or dislocation. No suspicious intraosseous lesion. 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 Soft tissues: There is no significant joint effusion or calcified intra-articular loose bodies. No soft tissue mass or drainable fluid collection. No peritoneal free fluid or free air. Bladder wall thickness is normal. No pelvic lymphadenopathy. IMPRESSION: 1. Prior bilateral total hip arthroplasty. Anatomic hip alignment without CT evidence of hardware loosening or failure. 2. No pelvic fracture or or dislocation. No suspicious bony lesions. 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 3. No gross pelvic or hip soft tissue abnormalities. Dictated by: Tex Pastor M.D. on 03/31/2025 at 13:01 Approved by: Tex Pastor M.D. on 03/31/2025 at 13:03
== END ==
PROVIDERS: Family Provider Internal Medicine; PCP Internal Medicine; Referring Provider Orthopaedic Surgery; Visit Provider Orthopaedic Surgery
DX: M43.28 Fusion of spine, sacral and sacrococcygeal region (principal); M79.652 Pain in left thigh; Z96.643 Presence of artificial hip joint, bilateral
CPT/HCPCS: 73700

== ENCOUNTER → 2025-04-08 09:11 | Outpatient (CLI) | payer MEDICARE, OTHER, SELFPAY ==
--- NOTE | 2025-04-08 09:14 | DI.RAD.S_ITS ---
PROCEDURE: FL GUIDED ASPIRATION JOINT COMPARISON: None. INDICATIONS: Presence of left artificial hip joint, left hip pain Technique: Attempted aspiration of a left total hip arthroplasty. The risks, benefits and alternatives of arthrography for aspiration were discussed with the patient and the patient signed informed consent. The patient was placed prone on the fluoroscopy table and the left hip region was prepped and draped in a usual sterile fashion. Using local anesthesia and sterile technique the left hip was accessed using a 20 gauge needle. No fluid could be aspirated. FINDINGS/IMPRESSION: No fluid could be aspirated with multiple times. Findings do not suggest infection. Consider 3 phase bone scan to evaluate for prosthetic loosening. Dictated by: Cayden Hector M.D. on 04/08/2025 at 12:25 Approved by: Cayden Hector M.D. on 04/08/2025 at 12:28
[2025-04-08] MEDS: LIDOCAINE 1% 20 ML INJ (10:29)
== END ==
LOC: RAD 09:13
PROVIDERS: Family Provider Internal Medicine; PCP Internal Medicine; Visit Provider Radiology Diagnostic Radiology
DX: M25.552 Pain in left hip (principal); Z96.642 Presence of left artificial hip joint
CPT/HCPCS: 20610; 77002

== ENCOUNTER → 2025-04-30 10:26 | Outpatient (CLI) | payer MEDICARE, OTHER, SELFPAY ==
--- NOTE | 2025-04-30 | DI.MRI.S_ITS ---
PROCEDURE: MR LUMBAR SPINE WO CON INDICATIONS: LUMBAR RADICULOPATHY TECHNIQUE: Noncontrast sagittal T1 spin echo and T2 fast echo, sagittal STIR, coronal T2, and T2 fast spin echo through the lumbar spine. COMPARISON: [facility], MR, L-SPINE WITHOUT CONTRAST, 08/11/2017, 7:08. [facility], CR, XR LUMBAR SPINE WITH OBLIQUES, 08/26/2017, 8:20. FINDINGS: Image quality: Excellent. Alignment and Curvature: 5 lumbar type vertebral bodies are present by plain film. 3 mm of retrolisthesis of L1 on L2 and L2 on L3. 2 mm of retrolisthesis of L3 on L4. 3 mm of anterolisthesis of L4 on L5 Bone Marrow: Marrow is of normal overall signal. No acute vertebral body compression fractures. . Mild reactive signal throughout the endplates of the lumbar and lower thoracic spine. Spinal Cord: Conus medullaris terminates at the lower L2 level. Visualized cord demonstrates normal signal and size. Paraspinous Soft Tissues: No paravertebral masses. T12-L1: Moderate disc height loss and desiccation. Mild facet hypertrophy. Mild canal stenosis. Mild bilateral foraminal stenosis. No significant change. L1-L2: Moderate disc height loss and desiccation. Mild diffuse disc bulge. Mild facet and ligamentum flavum hypertrophy. Mild canal stenosis. Moderate left and mild right foraminal stenosis. No significant change. L2-L3: Moderate disc desiccation. Mild diffuse disc bulge. Mild facet and ligamentum flavum hypertrophy. Mild epidural lipomatosis. Mild canal stenosis. Moderate bilateral foraminal stenosis. No significant change L3-L4: Moderate disc desiccation. Mild diffuse disc bulge. Moderate facet and ligamentum flavum hypertrophy bilaterally. Mild epidural lipomatosis. Increased, severe canal stenosis. Increased, moderate to severe bilateral foraminal stenosis with mild L3 nerve root compression. L4-L5: Moderate disc desiccation. Mild diffuse disc bulge. Moderate facet and ligamentum flavum hypertrophy. Increased, severe canal stenosis. Increased, moderate left and moderate to severe right foraminal stenosis. Mild right L4 nerve root compression. L5-S1: Mild disc desiccation and diffuse disc bulge. Mild facet and ligamentum flavum hypertrophy. Mild canal stenosis. Moderate bilateral foraminal stenosis. No significant change IMPRESSION: 1. Multilevel degenerative disc and facet disease, as well as ligamentum flavum hypertrophy and epidural lipomatosis. 2. Multilevel canal stenoses, worst at L3-L4 and L4-L5 where there are severe canal stenosis. 3. Multilevel foraminal stenoses, worst at L3-L4 and L4-L5 where there is associated intraforaminal nerve root compression. Recommend correlation with clinical symptoms to ascertain relevance of these findings. Dictated by: Bora Reis M.D. on 05/02/2025 at 13:14 Approved by: Bora Reis M.D. on 05/02/2025 at 13:17
--- NOTE | 2025-04-30 | DI.RAD.S_ITS ---
PROCEDURE: XR LUMBAR SPINE 2-3V INDICATIONS: LUMBAR RADICULOPATHY TECHNIQUE: 3 views of the lumbar spine were acquired. COMPARISON: [facility], CR, ORTHO-XR LUMBAR 6V W BENDING, 03/29/2025, 14:55. FINDINGS: Bones: 5 [id number] vertebrae are present. Dextroscoliotic curvature. Decreased osseous mineralization. No vertebral body compression fractures. No suspicious bony lesions. There is multilevel facet arthropathy, worse at L4-5 and L5-S1. Multilevel disc height loss with degenerative endplate changes and spurring is present. Partially visualized bilateral hip arthroplasties. Soft tissues: Overlying bowel gas pattern is normal. No suspicious soft tissue calcifications. Atherosclerotic vascular calcifications. IMPRESSION: Multilevel degenerative changes of the lumbar spine with dextroscoliotic curvature. Dictated by: Danilo Bennett M.D. on 04/30/2025 at 15:53 Approved by: Danilo Bennett M.D. on 04/30/2025 at 15:54
== END ==
LOC: MRI 10:28
PROVIDERS: Family Provider Internal Medicine; PCP Internal Medicine; Referring Provider Physician Assistant; Visit Provider Physician Assistant
DX: M47.26 Other spondylosis with radiculopathy, lumbar region (principal); M47.27 Other spondylosis with radiculopathy, lumbosacral region; M51.16 Intervertebral disc disorders with radiculopathy, lumbar region; M51.17 Intervertebral disc disorders with radiculopathy, lumbosacral region; M48.061 Spinal stenosis, lumbar region without neurogenic claudication; M48.07 Spinal stenosis, lumbosacral region; E88.2 Lipomatosis, not elsewhere classified
CPT/HCPCS: 72100; 72148

== ENCOUNTER → 2025-07-14 08:57 | Outpatient (CLI) | payer MEDICARE, OTHER, SELFPAY ==
[2025-07-14 09:58] LABS: Alanine Aminotransferase 84 IU/L (<50); Albumin 4.7 g/dL (3.5-5.0); Albumin Globulin Ratio 2.0 (1.0-2.8); Alkaline Phosphatase 50 U/L (38-126); Blood Urea Nitrogen 27 mg/dL (9-20); Calcium 9.6 mg/dL (8.4-10.2); Carbon Dioxide 23 mmol/L (22-32); Chloride 102 mmol/L (98-107); Estimated Glomerular Filt Rate > 60 mL/min (>60); Globulin 2.3 g/dL (1.7-4.1); Glucose 202 mg/dL (70-99); HEMOLYSIS < 15 (0-50); Hemoglobin A1C% w Est Avg Glu 7.1 % (4.0-6.0); Potassium 4.6 mmol/L (3.4-5.1); Sodium 138 mmol/L (137-145); Total Protein 7.0 g/dL (6.3-8.2)
[2025-07-14 10:31] LABS: Microalbumi Creatinin Ratio Ur 7.0 ug/mg CR (<30)
== END ==
PROVIDERS: Family Provider Internal Medicine; PCP Internal Medicine; Referring Provider Internal Medicine; Visit Provider Internal Medicine
DX: E11.9 Type 2 diabetes mellitus without complications (principal); N18.30 Chronic kidney disease, stage 3 unspecified; R94.5 Abnormal results of liver function studies; E78.2 Mixed hyperlipidemia
CPT/HCPCS: 36415; 80053; 82043; 82570; 83036